=== PATIENT | female | born 1960 | race African-American/Black ===

== ENCOUNTER 2017-01-02 13:58 | Inpatient (IN) | payer MEDICAID, OTHER ==
[~2017-01-02] VITALS: Ht 167.6 cm; Wt 147.4 kg
[~2017-01-02 13:58] MED LIST: ACETIC ACID-ALU60 ML RIGHT EAR; AMBIEN5 MG ORAL; ATIVAN1 MG ORAL; CARISOPRODOL350 MG ORAL; CORTISPORIN10 ML RIGHT EAR; FLONASE1 SPRAYS NASAL; FUROSEMIDE20 M1 ORAL; HEPARIN SO5000 UNIT2 SUBQ; HUMALOG100 UNIT/4 SUBQ; LANTUS5 UNITS SUBQ; LASIX20 M1 ORAL; LISINOPRIL10 MG ORAL; LISINOPRIL5 MG ORAL; MS CONTIN15 MG ORAL; NORCO 5-325 TA1 EACH ORAL; NORCO1 E1 ORAL; NOVOLOG100 UNITS1 SUBQ; OXYCODONE HCL10 MG ORAL; OXYCODONE HCL15 M1 ORAL; OXYCODONE HCL30 MG ORAL; PROAIR HFA8.5 GM INH; PROZAC20 MG ORAL; SOMA350 MG PO; ZESTRIL10 MG ORAL
[2017-01-02] MEDS ORDERED: FUROSEMIDE40 MG ORAL (14:07)
[2017-01-02] MEDS ORDERED: CYMBALTA30 MG ORAL (14:07)
[2017-01-02] MEDS ORDERED: COLACE100 MG ORAL (14:07)
[2017-01-02] MEDS ORDERED: ALBUTEROL2.5 MG/3 M INH (14:07)
[2017-01-02] MEDS ORDERED: BENADRYL25 MG ORAL (14:07)
[2017-01-02] MEDS ORDERED: CATAPRES0.1 MG ORAL (14:07)
[2017-01-02] MEDS ORDERED: AMBIEN5 MG ORAL (14:07)
[2017-01-02] MEDS ORDERED: MORPHINE S10 MG/5 ML ORAL (14:12)
[2017-01-02] MEDS ORDERED: LOVENOX10 M4 SUBQ (14:12)
--- NOTE | 2017-01-02 14:13 | Emergency Room Report ---
History of Present Illness General Chief Complaint: General Complaint Source: Patient, Medical Record Present Illness HPI Patient is a 56 female presented after increased bilateral lower extremity pain and swelling. Patient prior history of pulmonary hypertension as well as morbid obesity and had been taking diuretics for leg swelling. She reported having increased swelling to both legs. She was noted to have prior history of hypertension and taking multiple medications. She denied any fever. She had not been vomiting or having any diarrhea. She was sent at her [facility]. Allergies: Coded Allergies: ASPIRIN (Verified Allergy, Intermediate, 04/17/13) KETOROLAC (Verified Allergy, Intermediate, 04/17/13) PENICILLINS (Verified Allergy, Intermediate, 04/17/13) Patient History Past Medical History: see triage record Now: No Reviewed Nursing Documentation: PMH: Agreed, PSxH: Agreed Nursing Documentation-PMH Hx Cardiac Problems: Yes Hx Hypertension: Yes Hx Pacemaker: No Hx Asthma: No Hx COPD: Yes Hx Diabetes: Yes Hx Cancer: No Hx Gastrointestinal Problems: No Hx Dialysis: No History Of Psychiatric Problem: No Hx Cerebrovascular Accident: No Hx Seizures: No Hx Dizziness: Yes - at times Review of Systems All Other Systems: negative except mentioned in HPI Physical Exam Vital Signs Date Time Temp Pulse Resp B/P Pulse Ox O2 Delivery O2 Flow Rate FiO2 01/02/17 13:48 98.1 78 16 161/76 98 Room Air Sp02 EP Interpretation: reviewed, normal General Appearance: normal inspection, well appearing, no apparent distress, alert, GCS 15, obese Head: atraumatic ENT: normal ENT inspection, hearing grossly normal, normal voice Neck: normal inspection, full range of motion, supple, no bony tend Respiratory: normal inspection, lungs clear, normal breath sounds, no respiratory distress, no retraction, no wheezing Cardiovascular #1: regular rate, rhythm, no edema Gastrointestinal: normal inspection, normal bowel sounds, non tender, soft, no guarding, no hernia Genitourinary: no CVA tenderness Musculoskeletal: normal inspection, back normal, normal range of motion Neurologic: normal inspection, alert, oriented x3, responsive, color worker III-XII nml as tested, speech normal Psychiatric: normal inspection, judgement/insight normal, mood/affect normal Skin: normal inspection, normal color, no rash Medical Decision Making Diagnostic Impression: Primary Impression: Intractable pain Additional Impression: Acute exacerbation of congestive heart failure ER Course Patient presented for lower extremity pain and swelling. Differential diagnosis included wasn't limited to deep venous thrombosis, congestive heart failure exacerbation, neuropathy among others.Because of complexity of patient' s case laboratory testing and imaging studies were ordered. Laboratory testing showed elevation of his BNP. A chest x-ray one view interpreted by radiology showed cardiomegaly without evident pulmonary edema. The lower extremity ultrasound was ordered this was a limited study and several portions of both legs were unable to be visualized do to patient's body habitus. There is no evidence of a definite deep venous thrombosis.The patient is advised to follow up with primary care doctor in 1-2 days. Patient is advised to return if any worsening condition or if any changes in status that are concerning. Labs Test 01/02/17 14:45 White Blood Count 3.6 K/UL (4.8-10.8) Red Blood Count 3.85 M/UL (4.20-5.40) Hemoglobin 10.8 G/DL (12.0-16.0) Hematocrit 33.3 % (37.0-47.0) Mean Corpuscular Volume 86 FL (80-99) Mean Corpuscular Hemoglobin 27.9 PG (27.0-31.0) Mean Corpuscular Hemoglobin Concent 32.3 G/DL (32.0-36.0) Red Cell Distribution Width 13.3 % (11.6-14.8) Platelet Count 204 K/UL (150-450) Mean Platelet Volume 7.5 FL (6.5-10.1) Neutrophils (%) (Auto) 46.3 % (45.0-75.0) Lymphocytes (%) (Auto) 38.8 % (20.0-45.0) Monocytes (%) (Auto) 11.1 % (1.0-10.0) Eosinophils (%) (Auto) 2.5 % (0.0-3.0) Basophils (%) (Auto) 1.3 % (0.0-2.0) Prothrombin Time 9.5 SEC (9.30-11.50) Prothromb Time International Ratio 0.9 (0.9-1.1) Activated Partial Thromboplast Time 27 SEC (23-33) D-Dimer 2835 ng/mL (<500) Sodium Level 142 mEQ/L (135-145) Potassium Level 4.1 mEQ/L (3.4-4.9) Chloride Level 103 mEQ/L (98-107) Carbon Dioxide Level 29 mEQ/L (20-30) Anion Gap 10 (5-15) Blood Urea Nitrogen 20 mg/dL (7-23) Creatinine 0.8 mg/dL (0.5-0.9) Estimat Glomerular Filtration Rate > 60 mL/min (>60) Glucose Level 97 mg/dL (74-106) Calcium Level 9.0 mg/dL (8.6-10.2) Total Bilirubin 0.2 mg/dL (0.0-1.2) Aspartate Amino Transf (AST/SGOT) 15 U/L (5-40) Alanine Aminotransferase (ALT/SGPT) 26 U/L (3-33) Alkaline Phosphatase 142 U/L (35-104) Total Creatine Kinase 118 U/L (26-140) Creatine Kinase MB 3.1 ng/mL (< 3.8) Creatine Kinase MB Relative Index 2.6 Troponin I < 0.30 ng/mL (<=0.30) Pro-B-Type Natriuretic Peptide 1203 pg/mL (0-125) Total Protein 6.9 g/dL (6.6-8.7) Albumin 3.6 g/dL (3.5-5.2) Globulin 3.3 g/dL Albumin/Globulin Ratio 1.0 (1.0-2.7) Last Vital Signs Date Time Temp Pulse Resp B/P Pulse Ox O2 Delivery O2 Flow Rate FiO2 01/02/17 13:48 98.1 78 16 161/76 98 Room Air Status: improved Disposition: HOME, SELF-CARE Condition: Stable Enzo Tenorio Jan 02, 2017 14:13
[2017-01-02] MEDS ORDERED: Morphine Sulfate 4mg/ml Inj IVP ONE ×2 (14:15→17:15)
[2017-01-02] MEDS ORDERED: PEPCID AC20 M2 PO (14:15)
[2017-01-02] MEDS ORDERED: SOMA350 MG PO (14:15)
[2017-01-02] MEDS ORDERED: Aspirin Baby 81mg ORAL ONE (14:15)
[2017-01-02] MEDS ORDERED: NORVASC5 MG ORAL (14:15)
[2017-01-02] MEDS ORDERED: ZOFRAN4 M3 ORAL (14:15)
[2017-01-02] MEDS ORDERED: NITROGLYCERIN0.4 MG SL (14:15)
[2017-01-02 15:19] LABS: BASOPHILS % (AUTO) 1.3 % (0.0-2.0); EOSINOPHILS % (AUTO) 2.5 % (0.0-3.0); LYMPHOCYTES % (AUTO) 38.8 % (20.0-45.0); MEAN CORPUSCULAR HEMOGLOBIN 27.9 PG (27.0-31.0); MEAN CORPUSCULAR HGB CONC 32.3 G/DL (32.0-36.0); MEAN CORPUSCULAR VOLUME 86 FL (80-99); MEAN PLATELET VOLUME 7.5 FL (6.5-10.1); MONOCYTES % (AUTO) 11.1 % (1.0-10.0); NEUTROPHILS % (AUTO) 46.3 % (45.0-75.0); PLATELET COUNT 204 K/UL (150-450); RED BLOOD COUNT 3.85 M/UL (4.20-5.40); RED CELL DISTRIBUTION WIDTH 13.3 % (11.6-14.8); WHITE BLOOD COUNT 3.6 K/UL (4.8-10.8)
[2017-01-02 15:39] LABS: INR 0.9 (0.9-1.1); PROTHROMBIN TIME 9.5 SEC (9.30-11.50)
[2017-01-02 15:44] LABS: ALANINE AMINOTRANSFERASE 26 U/L (3-33); ANION GAP 10 (5-15); ASPARTATE AMINO TRANSFERASE 15 U/L (5-40); CARBON DIOXIDE 29 mEQ/L (20-30); CHLORIDE 103 mEQ/L (98-107); CREATININE 0.8 mg/dL (0.5-0.9); GLOMERULAR FILTRATION RATE > 60 mL/min (>60); HEMOLYSIS 1; POTASSIUM 4.1 mEQ/L (3.4-4.9); SODIUM 142 mEQ/L (135-145); TOTAL PROTEIN 6.9 g/dL (6.6-8.7); TROPONIN I < 0.30 ng/mL (<=0.30)
[2017-01-02 15:52] LABS: CKMB 3.1 ng/mL (< 3.8)
--- NOTE | 2017-01-02 16:01 | Diagnostic Imaging Report ---
Indication: Dyspnea Comparison: None A single view chest radiograph was obtained. Findings: No definite infiltrate or pulmonary vascular congestion identified. The heart is enlarged. The aorta is mildly enlarged consistent with atherosclerotic vascular disease. The bones are osteopenic. A suture anchor projecting over the right humeral head. Cervical fusion plate over the lower cervical spine noted. Bones are osteopenic. Impression: No acute disease. Cardiomegaly
[2017-01-02 17:25] VITALS: BP 134/68
[2017-01-02 20:00] VITALS: BP 132/68
[2017-01-02] MEDS ORDERED: Morphine Sulfate 10mg/ml Inj IVP ONE (21:30)
[2017-01-02 21:50] VITALS: BP 131/51
[2017-01-02] MEDS ORDERED: Miralax 17gm pkt ORAL PRN (22:30)
[2017-01-02] MEDS: DuoNeb 0.5-3(2.5)mg/3ml neb HHN PRN (23:51)
[2017-01-02 23:56] LABS: TROPONIN I < 0.30 ng/mL (<=0.30)
[2017-01-03] MEDS: oxyCODONE 15mg IR tab ORAL PRN ×3 (02:54→17:10)
[2017-01-03] MEDS: DuoNeb 0.5-3(2.5)mg/3ml neb HHN PRN (03:22)
[2017-01-03 04:00] VITALS: BP 137/69
[2017-01-03] MEDS: NovoLOG Insulin Flexpen SUBQ SCH ×4 (06:01→22:55)
[2017-01-03 07:04] LABS: MEAN CORPUSCULAR HEMOGLOBIN 27.2 PG (27.0-31.0); MEAN CORPUSCULAR HGB CONC 30.8 G/DL (32.0-36.0); MEAN CORPUSCULAR VOLUME 88 FL (80-99); MEAN PLATELET VOLUME 8.1 FL (6.5-10.1); PLATELET COUNT 209 K/UL (150-450); RED BLOOD COUNT 3.91 M/UL (4.20-5.40); RED CELL DISTRIBUTION WIDTH 13.9 % (11.6-14.8); WHITE BLOOD COUNT 3.2 K/UL (4.8-10.8)
[2017-01-03 07:17] LABS: ANION GAP 7 (5-15); CALCIUM 8.6 mg/dL (8.6-10.2); CARBON DIOXIDE 28 mEQ/L (20-30); CHLORIDE 105 mEQ/L (98-107); CREATININE 0.8 mg/dL (0.5-0.9); GLOMERULAR FILTRATION RATE > 60 mL/min (>60); HEMOLYSIS 0; PHOSPHORUS 5.1 mg/dL (2.5-4.8); POTASSIUM 4.7 mEQ/L (3.4-4.9); SODIUM 140 mEQ/L (135-145)
[2017-01-03 07:21] LABS: TROPONIN I < 0.30 ng/mL (<=0.30)
[2017-01-03 08:46] VITALS: BP 144/64
[2017-01-03 08:52] LABS: ANISOCYTOSIS 1+; BAND NEUTROPHILS % (MANUAL) 0 % (0-8); BASOPHILS % (MANUAL) 0 % (0-2); EOSINOPHILS % (MANUAL) 3 % (0-3); HYPOCHROMASIA 1+; LYMPHOCYTES % (MANUAL) 41 % (20-45); NEUTROPHILS % (MANUAL) 52 % (45-75); PLATELET ESTIMATE ADEQUATE; PLATELET MORPHOLOGY NORMAL; TOTAL CELLS COUNTED 100
[2017-01-03] MEDS: Lisinopril 10mg tab ORAL SCH ×2 (09:00→09:33)
[2017-01-03] MEDS: Heparin 5000 units/ml inj SUBQ SCH ×2 (09:35→22:55)
--- NOTE | 2017-01-03 11:39 | Diagnostic Imaging Report ---
Indication: Dyspnea Comparison: 01/02/17 A single view chest radiograph was obtained. Findings: Moderate cardiomegaly is present and stable. Lungs are clear. There is no change. Impression: No change management consultant one-day
[2017-01-03 12:37] VITALS: BP 154/69
[2017-01-03 16:02] VITALS: BP 150/66
--- NOTE | 2017-01-03 17:00 | History and Physical Report ---
DATE OF ADMISSION: 01/02/2017 TIME SEEN: 2 p.m. CONSULTANTS: 1. Goldy Christiansen M.D. 2. Adelfo Torres M.D. 3. Sherita Cooper M.D. 4. Kobe Serrnao M.D. CHIEF COMPLAINT: Lower extremity swelling and agitation. BRIEF HISTORY: This is a 56-year-old female from [facility] presented with above-mentioned diagnosis, admitted to medical floor for further treatment, currently slightly agitated, anxious, sitting on bed, complaining of generalized pain, 6/10. PAST MEDICAL HISTORY: Lower extremity swelling, obesity, arthritis, CHF, pulmonary hypertension, diabetes. PAST SURGICAL HISTORY: Leg and back. MEDICATIONS: Norvasc, Cymbalta, Zestril, Soma, Lasix, Roxicodone, Restoril, Zofran, MiraLAX, Tylenol, DuoNeb. ALLERGIES: Aspirin, penicillin, Ketoralac. SOCIAL HISTORY: Positive smoking. No alcohol. No intravenous drug abuse. FAMILY HISTORY: Noncontributory. REVIEW OF SYSTEMS: No chest pain/shortness of breath. No nausea, vomiting or diarrhea. PHYSICAL EXAMINATION: GENERAL: Anxious in bed, oriented x2, in no acute distress. VITAL SIGNS: Temperature is 97 degrees, pulse 79, respirations 20, and blood pressure 154/69. CARDIOVASCULAR: No murmurs. LUNGS: Poor air exchange. ABDOMEN: Positive bowel sounds. Soft, nontender, and nondistended. EXTREMITIES: No cyanosis, clubbing, 1 to 2 + edema. NEUROLOGIC: The patient moves all extremities, but slightly weak. LABORATORY AND DIAGNOSTIC DATA: White count 3.2, hemoglobin and hematocrit 10 over 34, platelets 209,000. Glucose 272 otherwise BMP is normal. D-dimer is 2835. ASSESSMENT: 1. Lower extremity swelling. 2. Agitation. 3. Congestive heart failure. 4. Arthritis. 5. Obesity. 6. Pulmonary hypertension. 7. Diabetes. 8. Anemia. 9. Leukopenia . PLAN: 1. Continue premedications. 2. OT/PT. 3. Dietary evaluation. 4. CBC and BMP in the morning. 5. Dr. Christiansen, Dr. Torres, Dr. Cooper, Dr. Serrano, Dr. Bryant, and Dr. Craven to consult. 6. Blood sugar control. 7. Pain control. 8. We will continue to follow this patient medically. Alfred Parr D.O. DR: Orquidea JOB#: [id number] CC:
--- NOTE | 2017-01-03 19:04 | Consultation ---
History of Present Illness General Date patient seen: Jan 03, 2017 Chief Complaint: General Complaint Reason for Consultation: inpatient management Present Illness HPI 56 year old female with hx of morbid obesity, DVT, DM, Asthma, group home resident brought in with CC of increasing swelling of legs and uncontrollable pain. Allergies: Coded Allergies: ASPIRIN (Verified Allergy, Intermediate, 04/17/13) KETOROLAC (Verified Allergy, Intermediate, 04/17/13) PENICILLINS (Verified Allergy, Intermediate, 04/17/13) Medication History Scheduled Acetic Acid/Aluminum Acetate (Acetic Acid-Aluminum Drops), 4 DROP RIGHT EAR TID Albuterol Sulfate* (Proair Hfa*), 2 PUFFS INH Q6H, (Reported) Amlodipine Besylate (Norvasc), 5 MG ORAL BID, (Reported) Carisoprodol* (Carisoprodol*), 350 MG ORAL Q8HR, (Reported) Carisoprodol* (Soma*), 350 MG PO Q6H, (Reported) Clonidine Hcl* (Catapres*), 0.1 MG ORAL EVERY 4 HOURS, (Reported) Docusate Sodium* (Colace*), 100 MG ORAL DAILY, (Reported) Duloxetine Hcl* (Cymbalta*), 20 MG ORAL DAILY, (Reported) Enoxaparin* (Lovenox*), 40 MG SUBQ DAILY, (Reported) Fluticasone Propionate (Fluticasone Propionate), 2 SPRAY NASAL BID Furosemide* (Lasix*), 40 MG ORAL DAILY, (Reported) Insulin Aspart (Novolog Flexpen), 0 UNITS SUBQ BEFORE MEALS AND HS Insulin Glargine (Lantus), 55 UNIT SUBQ BEDTIME Insulin Lispro (Humalog), 12 UNITS SUBQ DAILY Lisinopril* (Lisinopril*), 10 MG ORAL DAILY, (Reported) Neomycin/Polymyxin/Hydrocort (Eaztpamq-Nvcohcxdc-Yh Ear Soln), 4 DROP RIGHT EAR FOUR TIMES A DAY Scheduled PRN Albuterol Sulfate* (Albuterol Sulfate Hhn*), 3 ML INH Q4H PRN for Shortness of Breath, (Reported) Diphenhydramine Hcl* (Benadryl*), 25 MG ORAL Q6H PRN for Itching, (Reported) Lorazepam* (Ativan*), 2 MG ORAL Q6H PRN for ANXIETY/AGITATION Morphine Sulfate* (Morphine Sulfate*), 15 MG ORAL EVERY 6 HOURS PRN for For Pain , (Reported) Ondansetron* (Zofran*), 4 MG ORAL Q6H PRN for Nausea & Vomiting, (Reported) Oxycodone Hcl* (Oxycodone Hcl*), 15 MG ORAL Q6H PRN for For Pain, (Reported) Zolpidem Tartrate* (Ambien*), 5 MG ORAL BEDTIME PRN for Insomnia, (Reported) Miscellaneous Medications Famotidine (Pepcid Ac), 20 MG PO, (Reported) Nitroglycerin (Nitroglycerin), 0.4 MG SL, (Reported) Patient History Healthcare decision maker Resuscitation status Full Code Advanced Directive on File Past Medical/Surgical History Past Medical/Surgical History: (1) Intractable pain (2) Diabetes (3) Osteopenia Review of Systems All Other Systems: negative except mentioned in HPI Physical Exam General Appearance: overweight Lines, tubes and drains: peripheral, central line HEENT: normocephalic, atraumatic Neck: non-tender, normal alignment Respiratory/Chest: chest wall non-tender, lungs clear Cardiovascular/Chest: normal peripheral pulses, normal rate Abdomen: normal bowel sounds, non tender Genitourinary/Rectal: normal genital exam Extremities: normal range of motion Skin Exam: normal pigmentation 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 normal Last 24 Hour Vital Signs Date Time Temp Pulse Resp B/P Pulse Ox O2 Delivery O2 Flow Rate FiO2 01/03/17 16:02 97.0 77 20 150/66 98 Room Air 77 01/03/17 12:37 97.7 79 20 154/69 98 Room Air 79 01/03/17 08:46 97.5 76 20 144/64 98 Room Air 76 01/03/17 07:03 98.1 01/03/17 04:00 97.3 83 17 137/69 96 Room Air 01/03/17 03:33 78 20 98 Room Air 21 01/03/17 03:22 82 20 Room Air 21 01/03/17 03:22 82 20 91 Room Air 21 01/02/17 23:59 81 20 100 Room Air 01/02/17 23:54 88 20 99 Room Air 21 01/02/17 23:50 99 20 Room Air 21 01/02/17 22:19 84 17 131/57 99 Room Air 01/02/17 21:50 88 17 131/51 99 Room Air 01/02/17 20:00 84 17 132/68 99 Room Air Intake and Output 01/02/17 01/03/17 19:00 07:00 Output Total 350 ml 475 ml Balance -350 ml -475 ml Output Urine Total 350 ml 475 ml Laboratory Tests Test 01/02/17 23:20 01/03/17 04:40 Troponin I < 0.30 ng/mL (<=0.30) < 0.30 ng/mL (<=0.30) White Blood Count 3.2 K/UL (4.8-10.8) L Red Blood Count 3.91 M/UL (4.20-5.40) L Hemoglobin 10.6 G/DL (12.0-16.0) L Hematocrit 34.5 % (37.0-47.0) L Mean Corpuscular Volume 88 FL (80-99) Mean Corpuscular Hemoglobin 27.2 PG (27.0-31.0) Mean Corpuscular Hemoglobin Concent 30.8 G/DL (32.0-36.0) L Red Cell Distribution Width 13.9 % (11.6-14.8) Platelet Count 209 K/UL (150-450) Mean Platelet Volume 8.1 FL (6.5-10.1) Neutrophils (%) (Auto) % (45.0-75.0) Lymphocytes (%) (Auto) % (20.0-45.0) Monocytes (%) (Auto) % (1.0-10.0) Eosinophils (%) (Auto) % (0.0-3.0) Basophils (%) (Auto) % (0.0-2.0) Differential Total Cells Counted 100 Neutrophils % (Manual) 52 % (45-75) Lymphocytes % (Manual) 41 % (20-45) Monocytes % (Manual) 4 % (1-10) Eosinophils % (Manual) 3 % (0-3) Basophils % (Manual) 0 % (0-2) Band Neutrophils 0 % (0-8) Platelet Estimate Adequate Platelet Morphology Normal Hypochromasia 1+ Anisocytosis 1+ Sodium Level 140 mEQ/L (135-145) Potassium Level 4.7 mEQ/L (3.4-4.9) Chloride Level 105 mEQ/L (98-107) Carbon Dioxide Level 28 mEQ/L (20-30) Anion Gap 7 (5-15) Blood Urea Nitrogen 20 mg/dL (7-23) Creatinine 0.8 mg/dL (0.5-0.9) Estimat Glomerular Filtration Rate > 60 mL/min (>60) Glucose Level 272 mg/dL (74-106) #H Calcium Level 8.6 mg/dL (8.6-10.2) Phosphorus Level 5.1 mg/dL (2.5-4.8) H Albumin 3.3 g/dL (3.5-5.2) L Height (Feet): 5 Height (Inches): 6.00 Weight (Pounds): 325 Medications Current Medications Medications (Trade) Dose Ordered Sig/Evelia Route PRN Reason Start Time Stop Time Status Last Admin Dose Admin Acetaminophen (Tylenol) 650 mg Q4H PRN ORAL Fever 01/02/17 22:30 02/01/17 22:29 Albuterol/ Ipratropium (DuoNeb 0.5-3(2.5)mg/3ml) 3 ml Q4H PRN HHN Shortness of Breath 01/02/17 22:30 01/07/17 22:29 01/03/17 03:22 Amlodipine Besylate (Norvasc) 5 mg BID ORAL 01/03/17 09:00 02/02/17 08:59 Carisoprodol (Soma) 350 mg Q8HR ORAL 01/03/17 06:00 02/02/17 05:59 01/03/17 15:07 Dextrose (Dextrose 50%) STAT PRN IV Hypoglycemia 01/03/17 17:45 02/02/17 17:44 Duloxetine HCl (Cymbalta) 20 mg DAILY ORAL 01/03/17 09:00 02/02/17 08:59 01/03/17 09:00 Furosemide (Lasix) 40 mg EVERY 8 HOURS IV 01/03/17 06:00 02/02/17 05:59 01/03/17 15:01 Heparin Sodium (Porcine) (Heparin 5000 units/ml) 5,000 units EVERY 12 HOURS SUBQ 01/03/17 09:00 02/02/17 08:59 01/03/17 09:35 Insulin Aspart (NovoLOG) BEFORE MEALS AND HS SUBQ 01/03/17 06:30 02/02/17 06:29 01/03/17 06:01 Insulin Aspart (NovoLOG) 8 units NOVOTIAC SUBQ 01/04/17 06:30 02/03/17 06:29 Insulin Detemir (Levemir) 24 units BEDTIME SUBQ 01/03/17 21:00 02/02/17 20:59 Lisinopril (Zestril) 10 mg DAILY ORAL 01/03/17 09:00 02/02/17 08:59 Ondansetron HCl (Zofran) 4 mg Q6H PRN IVP Nausea & Vomiting 01/02/17 22:30 02/01/17 22:29 Oxycodone HCl (Roxicodone) 15 mg Q6H PRN ORAL For Pain 01/02/17 22:30 01/09/17 22:29 01/03/17 17:10 Polyethylene Glycol (Miralax) 17 gm DAILYPRN PRN ORAL Constipation 01/02/17 22:30 02/01/17 22:29 Temazepam (Restoril) 15 mg HSPRN PRN ORAL Insomnia 01/02/17 22:30 01/09/17 22:29 Assessment/Plan Problem List: (1) Peripheral edema ICD Codes: R60.9 - Edema, unspecified SNOMED: 999070538 (2) Diabetes ICD Codes: E11.9 - Type 2 diabetes mellitus without complications SNOMED: 48531449 (3) Intractable pain ICD Codes: G89.29 - Other chronic pain SNOMED: 997666824 Assessment/Plan pain management venous doppler of legs symptomatic treatment sliding scale might benefit from psych evaluation. LLUVIA JENKINS Jan 03, 2017 19:04
[2017-01-03 19:41] LABS: PATH BLOOD SMEAR/OMC SENT TO PATHOLOGIST
[2017-01-03 20:00] VITALS: BP 155/71
[2017-01-03 20:19] LABS: LACTATE DEHYDROGENASE 293 U/L (135-230)
[2017-01-03 20:21] LABS: HEMOLYSIS 10; IRON 45 ug/dL (37-145); TOTAL IRON BINDING CAPACITY 325 ug/dL (250-400)
[2017-01-03 20:29] LABS: FERRITIN 95 ng/mL (13-150)
[2017-01-03] MEDS ORDERED: Levemir Flexpen SUBQ SCH (21:00)
[2017-01-03] MEDS ORDERED: oxyCODONE 15mg IR tab ORAL PRN (21:45)
--- NOTE | 2017-01-03 22:30 | Consultation ---
DATE OF CONSULTATION: 01/03/2017 HEMATOLOGY/ONCOLOGY CONSULTATION CONSULTING PHYSICIAN: Ryan Bryant M.D. REQUESTING PHYSICIAN: Alfred Parr D.O. REASON FOR CONSULTATION: Evaluation of leukopenia as well as anemia. IDENTIFICATION DATA: Dear Dr. Alfred Parr, The patient is a pleasant 56-year-old female, who resides in [facility]. She has a past medical history significant for depression, pain, history of fluid overload, asthma, and positive for smoking, at this time presents to [facility] with anxiety, agitation, and lower extremity swelling. Duplex was performed and it was negative for DVT, however, the patient was found to have leukopenia. Therefore, Hematology service was consulted. PAST MEDICAL HISTORY: Lower extremity swelling, obesity, arthritis, pulmonary hypertension, diabetes mellitus, and CHF. PAST SURGICAL HISTORY: Leg and back . MEDICATIONS: Norvasc, Cymbalta, Zestril, Soma, Lasix, Roxicodone, Restoril, and DuoNeb. ALLERGIES: Aspirin, penicillin, and Ketoralac. SOCIAL HISTORY: Positive for smoking. No alcohol use. FAMILY HISTORY: Noncontributory. REVIEW OF SYSTEMS: Constitutional: No fever, chills, or night sweats. Skin: No rashes, lumps, or itching. HEENT: No headache, hearing, or vision changes. Breasts: No lumps, pain, or discharge. Pulmonary: No cough. Having some shortness of breath. Cardiovascular: No chest pain, tightness, or palpitations. Gastrointestinal: No nausea, vomiting, or diarrhea. Genitourinary: No dysuria, frequency, or urgency. Musculoskeletal: No joint swelling, muscle pain, or trauma. PHYSICAL EXAMINATION: GENERAL: The patient is in no acute distress. VITAL SIGNS: Temperature 97 degrees Fahrenheit, pulse of 79, respiratory rate 12, and blood pressure 159/69. PULMONARY: Decreased breath sounds. CARDIOVASCULAR: Regular rate. No S3 or S4. ABDOMEN: Soft, nontender, and nondistended. EXTREMITIES: There is 1-2+ edema. LABORATORY AND DIAGNOSTIC DATA: WBC 2.3, hemoglobin 10.3, hematocrit 34, and platelet count 209,000. Duplex of lower extremity is negative. ASSESSMENT AND PLAN: 1. Leukopenia secondary to underlying infection. This is non-congenital neutropenia. We will send for hepatitis panel, HIV, and ultrasound of the abdomen. 2. Anemia due to chronic disease, is normocytic. 3. Monocytosis, has resolved. 4. Elevation of D-dimer, likely secondary to reactive process. 5. Alkaline phosphatase elevated. 6. Malnutrition, low albumin. 7. Cardiomegaly noted. 8. Discussed with staff. 9. . Ryan Bryant M.D. DR: ERICA JOB#: [id number] CC:
[2017-01-03] MEDS: HYDROmorphone 1mg/ml Carpuject IVP PRN (22:49)
[2017-01-04] MEDS: DuoNeb 0.5-3(2.5)mg/3ml neb HHN PRN ×3 (01:17→19:59)
[2017-01-04] MEDS: HYDROmorphone 1mg/ml Carpuject IVP PRN ×5 (03:59→21:01)
[2017-01-04 04:28] VITALS: BP 138/64
[2017-01-04] MEDS: NovoLOG Insulin Flexpen SUBQ SCH ×7 (06:26→21:00)
[2017-01-04 06:27] LABS: BASOPHILS % (AUTO) 0.8 % (0.0-2.0); EOSINOPHILS % (AUTO) 1.2 % (0.0-3.0); LYMPHOCYTES % (AUTO) 28.7 % (20.0-45.0); MEAN CORPUSCULAR HEMOGLOBIN 27.4 PG (27.0-31.0); MEAN CORPUSCULAR HGB CONC 31.1 G/DL (32.0-36.0); MEAN CORPUSCULAR VOLUME 88 FL (80-99); MEAN PLATELET VOLUME 7.6 FL (6.5-10.1); NEUTROPHILS % (AUTO) 55.3 % (45.0-75.0); PLATELET COUNT 192 K/UL (150-450); RED BLOOD COUNT 3.86 M/UL (4.20-5.40); RED CELL DISTRIBUTION WIDTH 13.5 % (11.6-14.8); WHITE BLOOD COUNT 3.5 K/UL (4.8-10.8)
[2017-01-04 06:56] LABS: ANION GAP 8 (5-15); CALCIUM 8.8 mg/dL (8.6-10.2); CARBON DIOXIDE 29 mEQ/L (20-30); CHLORIDE 99 mEQ/L (98-107); CREATININE 0.8 mg/dL (0.5-0.9); GLOMERULAR FILTRATION RATE > 60 mL/min (>60); HEMOLYSIS 3; POTASSIUM 4.3 mEQ/L (3.4-4.9); SODIUM 136 mEQ/L (135-145)
[2017-01-04 07:57] VITALS: BP 134/66
[2017-01-04] MEDS: Heparin 5000 units/ml inj SUBQ SCH ×2 (08:57→21:00)
[2017-01-04] MEDS: Lisinopril 10mg tab ORAL SCH (08:57)
--- NOTE | 2017-01-04 09:57 | Consultation ---
History of Present Illness General Date patient seen: Jan 04, 2017 Chief Complaint: General Complaint Reason for Consultation: inpatient management Present Illness Allergies: Coded Allergies: ASPIRIN (Verified Allergy, Intermediate, 04/17/13) KETOROLAC (Verified Allergy, Intermediate, 04/17/13) PENICILLINS (Verified Allergy, Intermediate, 04/17/13) Medication History Scheduled Acetic Acid/Aluminum Acetate (Acetic Acid-Aluminum Drops), 4 DROP RIGHT EAR TID Albuterol Sulfate* (Proair Hfa*), 2 PUFFS INH Q6H, (Reported) Amlodipine Besylate (Norvasc), 5 MG ORAL BID, (Reported) Carisoprodol* (Carisoprodol*), 350 MG ORAL Q8HR, (Reported) Carisoprodol* (Soma*), 350 MG PO Q6H, (Reported) Clonidine Hcl* (Catapres*), 0.1 MG ORAL EVERY 4 HOURS, (Reported) Docusate Sodium* (Colace*), 100 MG ORAL DAILY, (Reported) Duloxetine Hcl* (Cymbalta*), 20 MG ORAL DAILY, (Reported) Enoxaparin* (Lovenox*), 40 MG SUBQ DAILY, (Reported) Fluticasone Propionate (Fluticasone Propionate), 2 SPRAY NASAL BID Furosemide* (Lasix*), 40 MG ORAL DAILY, (Reported) Insulin Aspart (Novolog Flexpen), 0 UNITS SUBQ BEFORE MEALS AND HS Insulin Glargine (Lantus), 55 UNIT SUBQ BEDTIME Insulin Lispro (Humalog), 12 UNITS SUBQ DAILY Lisinopril* (Lisinopril*), 10 MG ORAL DAILY, (Reported) Neomycin/Polymyxin/Hydrocort (Wcaamcuj-Cypygezeq-Mb Ear Soln), 4 DROP RIGHT EAR FOUR TIMES A DAY Scheduled PRN Albuterol Sulfate* (Albuterol Sulfate Hhn*), 3 ML INH Q4H PRN for Shortness of Breath, (Reported) Diphenhydramine Hcl* (Benadryl*), 25 MG ORAL Q6H PRN for Itching, (Reported) Lorazepam* (Ativan*), 2 MG ORAL Q6H PRN for ANXIETY/AGITATION Morphine Sulfate* (Morphine Sulfate*), 15 MG ORAL EVERY 6 HOURS PRN for For Pain , (Reported) Ondansetron* (Zofran*), 4 MG ORAL Q6H PRN for Nausea & Vomiting, (Reported) Oxycodone Hcl* (Oxycodone Hcl*), 15 MG ORAL Q6H PRN for For Pain, (Reported) Zolpidem Tartrate* (Ambien*), 5 MG ORAL BEDTIME PRN for Insomnia, (Reported) Miscellaneous Medications Famotidine (Pepcid Ac), 20 MG PO, (Reported) Nitroglycerin (Nitroglycerin), 0.4 MG SL, (Reported) Patient History Healthcare decision maker Resuscitation status Full Code Advanced Directive on File Physical Exam Last 24 Hour Vital Signs Date Time Temp Pulse Resp B/P Pulse Ox O2 Delivery O2 Flow Rate FiO2 01/04/17 09:45 90 20 100 Room Air 21 01/04/17 09:31 82 20 96 Room Air 21 01/04/17 08:57 134/66 01/04/17 08:56 82 134/66 01/04/17 08:25 97.6 01/04/17 07:57 97.6 82 20 134/66 97 Room Air 01/04/17 07:30 82 20 Room Air 21 01/04/17 04:28 97.5 77 19 138/64 95 Room Air 01/04/17 01:23 91 20 98 Room Air 21 01/04/17 01:17 87 20 98 Room Air 21 01/03/17 20:00 97.2 84 20 155/71 92 Room Air 84 01/03/17 16:02 97.0 77 20 150/66 98 Room Air 77 01/03/17 12:37 97.7 79 20 154/69 98 Room Air 79 Intake and Output 01/03/17 01/04/17 19:00 07:00 Intake Total 480 ml 500 ml Output Total 1400 ml 1100 ml Balance -920 ml -600 ml Intake Oral 480 ml 500 ml Output Urine Total 1400 ml 1100 ml Laboratory Tests Test 01/04/17 05:25 White Blood Count 3.5 K/UL (4.8-10.8) L Red Blood Count 3.86 M/UL (4.20-5.40) L Hemoglobin 10.6 G/DL (12.0-16.0) L Hematocrit 34.1 % (37.0-47.0) L Mean Corpuscular Volume 88 FL (80-99) Mean Corpuscular Hemoglobin 27.4 PG (27.0-31.0) Mean Corpuscular Hemoglobin Concent 31.1 G/DL (32.0-36.0) L Red Cell Distribution Width 13.5 % (11.6-14.8) Platelet Count 192 K/UL (150-450) Mean Platelet Volume 7.6 FL (6.5-10.1) Neutrophils (%) (Auto) 55.3 % (45.0-75.0) Lymphocytes (%) (Auto) 28.7 % (20.0-45.0) Monocytes (%) (Auto) 14.0 % (1.0-10.0) H Eosinophils (%) (Auto) 1.2 % (0.0-3.0) Basophils (%) (Auto) 0.8 % (0.0-2.0) Sodium Level 136 mEQ/L (135-145) Potassium Level 4.3 mEQ/L (3.4-4.9) Chloride Level 99 mEQ/L (98-107) Carbon Dioxide Level 29 mEQ/L (20-30) Anion Gap 8 (5-15) Blood Urea Nitrogen 19 mg/dL (7-23) Creatinine 0.8 mg/dL (0.5-0.9) Estimat Glomerular Filtration Rate > 60 mL/min (>60) Glucose Level 392 mg/dL (74-106) #H Calcium Level 8.8 mg/dL (8.6-10.2) Height (Feet): 5 Height (Inches): 6.00 Weight (Pounds): 325 Medications Current Medications Medications (Trade) Dose Ordered Sig/Evelia Route PRN Reason Start Time Stop Time Status Last Admin Dose Admin Acetaminophen (Tylenol) 650 mg Q4H PRN ORAL Fever 01/02/17 22:30 02/01/17 22:29 Albuterol/ Ipratropium (DuoNeb 0.5-3(2.5)mg/3ml) 3 ml Q4H PRN HHN Shortness of Breath 01/02/17 22:30 01/07/17 22:29 01/04/17 09:30 Amlodipine Besylate (Norvasc) 5 mg BID ORAL 01/03/17 09:00 02/02/17 08:59 Carisoprodol (Soma) 350 mg Q8HR ORAL 01/03/17 06:00 02/02/17 05:59 01/04/17 00:19 Dextrose (Dextrose 50%) STAT PRN IV Hypoglycemia 01/03/17 17:45 02/02/17 17:44 Duloxetine HCl (Cymbalta) 20 mg DAILY ORAL 01/03/17 09:00 02/02/17 08:59 01/03/17 09:00 Furosemide (Lasix) 40 mg EVERY 8 HOURS IV 01/03/17 06:00 02/02/17 05:59 01/04/17 05:36 Heparin Sodium (Porcine) (Heparin 5000 units/ml) 5,000 units EVERY 12 HOURS SUBQ 01/03/17 09:00 02/02/17 08:59 01/03/17 22:55 Hydromorphone HCl (Dilaudid) 1 mg Q4H PRN IVP Severe Pain (Pain Scale 7-10) 01/03/17 21:00 01/10/17 20:59 01/04/17 07:55 Insulin Aspart (NovoLOG) BEFORE MEALS AND HS SUBQ 01/03/17 06:30 02/02/17 06:29 01/04/17 06:27 Insulin Aspart (NovoLOG) 8 units NOVOTIAC SUBQ 01/04/17 06:30 02/03/17 06:29 01/04/17 06:26 Insulin Detemir (Levemir) 24 units BEDTIME SUBQ 01/03/17 21:00 02/02/17 20:59 01/03/17 22:54 Lisinopril (Zestril) 10 mg DAILY ORAL 01/03/17 09:00 02/02/17 08:59 Ondansetron HCl (Zofran) 4 mg Q6H PRN IVP Nausea & Vomiting 01/02/17 22:30 02/01/17 22:29 Oxycodone HCl (Roxicodone) 15 mg Q6H PRN ORAL Moderate Breakthru Pain (5-7) 01/03/17 21:45 01/10/17 21:44 01/04/17 05:37 Polyethylene Glycol (Miralax) 17 gm DAILYPRN PRN ORAL Constipation 01/02/17 22:30 02/01/17 22:29 Temazepam (Restoril) 15 mg HSPRN PRN ORAL Insomnia 01/02/17 22:30 01/09/17 22:29 Assessment/Plan Assessment/Plan (1) H/o Lumbar surgery (2) Lumbar Radiculopathy (3) Lumbar Spondylosis (4) Lumbar DDD (5) Morbid Obesity (6) Cervical Radiculopathy (7) Cervical Spondylosis (8) Cervical DDD (9) H/o Cervical fusion seen dictated VERÓNICA VINCENT Jan 04, 2017 09:57
[2017-01-04] MEDS ORDERED: oxyCODONE 5mg IR tab ORAL PRN (11:00)
[2017-01-04] MEDS: oxyCONTIN 20mg tab ORAL SCH ×3 (11:01→18:49)
[2017-01-04 12:00] VITALS: BP 179/98
--- NOTE | 2017-01-04 12:46 | Diagnostic Imaging Report ---
APPROVED REPORT CPT Code: 25895 Present Symptoms Lower Extremity Pain: Bilateral Lower Extremity Edema: Bilateral Shortness of breath Past History DVT : Limited, technically difficult study due to vessel depth (mid-thigh and calf area), and excessive edema due to pulmonary hypertension. BILATERAL: Imaging reveals a patent deep venous system bilaterally. There is no evidence of thrombus within the common femoral and proximal superficial femoral veins. Doppler indicates normal spontaneous flow within these segments. The greater saphenous veins are also within normal limits. The mid superficial femoral and popliteal vein segments are compressible. The distal superficial femoral veins and calf veins were not well visualized bilaterally. Bilateral popliteal vein augmentation was also not demonstrable due to vessel depth and excessive edema.
[2017-01-04 13:20] VITALS: BP 138/68
--- NOTE | 2017-01-04 13:59 | General Progress Note ---
Assessment/Plan Problem List: (1) HTN (hypertension) ICD Codes: I10 - Essential (primary) hypertension SNOMED: 57803941 (2) Osteoarthritis (3) Acute exacerbation of congestive heart failure ICD Codes: I50.9 - Heart failure, unspecified SNOMED: 84124480 (4) Diabetes ICD Codes: E11.9 - Type 2 diabetes mellitus without complications SNOMED: 89904231 (5) Intractable pain ICD Codes: G89.29 - Other chronic pain SNOMED: 911280119 (6) Peripheral edema ICD Codes: R60.9 - Edema, unspecified SNOMED: 827607331 (7) Leukopenia ICD Codes: D72.819 - Decreased whiteblood cell count, unspecified SNOMED: 38625691 Status: stable, progressing, tolerating diet Assessment/Plan ot pt diet o2 pulm tx cardio pulm f/u cbc bmp am psyc transfer Subjective Constitutional: Reports: weakness Allergies: Coded Allergies: ASPIRIN (Verified Allergy, Intermediate, 04/17/13) KETOROLAC (Verified Allergy, Intermediate, 04/17/13) PENICILLINS (Verified Allergy, Intermediate, 04/17/13) All Systems: reviewed and negative except above Subjective sl agitated Objective Last 24 Hour Vital Signs Date Time Temp Pulse Resp B/P Pulse Ox O2 Delivery O2 Flow Rate FiO2 01/04/17 13:20 81 138/68 01/04/17 13:04 98.2 01/04/17 12:00 98.2 84 20 179/98 97 Room Air 01/04/17 09:45 90 20 100 Room Air 01/04/17 09:31 82 20 96 Room Air 01/04/17 08:57 134/66 01/04/17 08:56 82 134/66 01/04/17 07:57 97.6 82 20 134/66 97 Room Air 01/04/17 07:30 82 20 Room Air 21 01/04/17 04:28 97.5 77 19 138/64 95 Room Air 01/04/17 01:23 91 20 98 Room Air 21 01/04/17 01:17 87 20 98 Room Air 21 01/03/17 20:00 97.2 84 20 155/71 92 Room Air 84 01/03/17 16:02 97.0 77 20 150/66 98 Room Air 77 Intake and Output 01/03/17 01/04/17 19:00 07:00 Intake Total 480 ml 500 ml Output Total 1400 ml 1100 ml Balance -920 ml -600 ml Intake Oral 480 ml 500 ml Output Urine Total 1400 ml 1100 ml Laboratory Tests 01/04/17 05:25: White Blood Count 3.5L, Red Blood Count 3.86L, Hemoglobin 10.6L, Hematocrit 34.1L, Mean Corpuscular Volume 88, Mean Corpuscular Hemoglobin 27.4, Mean Corpuscular Hemoglobin Concent 31.1L, Red Cell Distribution Width 13.5, Platelet Count 192, Mean Platelet Volume 7.6, Neutrophils (%) (Auto) 55.3, Lymphocytes (%) (Auto) 28.7, Monocytes (%) (Auto) 14.0H, Eosinophils (%) (Auto) 1.2, Basophils (%) (Auto) 0.8, Sodium Level 136, Potassium Level 4.3, Chloride Level 99, Carbon Dioxide Level 29, Anion Gap 8, Blood Urea Nitrogen 19, Creatinine 0.8, Estimat Glomerular Filtration Rate > 60, Glucose Level 392#H, Calcium Level 8.8 Height (Feet): 5 Height (Inches): 6.00 Weight (Pounds): 325 General Appearance: confused EENT: normal ENT inspection Neck: normal alignment Cardiovascular: normal peripheral pulses, normal rate, regular rhythm Respiratory/Chest: chest wall non-tender, lungs clear, normal breath sounds Abdomen: normal bowel sounds, non tender, soft Extremities: normal inspection Edema: 1+ Arm (L), 1+ Arm (R), 1+ Leg (L), 1+ Leg (R), 1+ Pedal (L), 1+ Pedal ( R), 1+ Generalized Edema: mild edema Neurologic: responsive, motor weakness Skin: normal pigmentation, warm/dry GISELLA MARCANO Jan 04, 2017 13:59
--- NOTE | 2017-01-04 15:10 | Consultation ---
History of Present Illness General Chief Complaint: General Complaint Reason for Consultation: inpatient management Present Illness HPI 56-year-old female from [facility] presented with above-mentioned diagnosis, admitted to medical floor for further treatment, currently calm and altered the pt is addicted to pain meds and is med seeking. the pt is asking for ativan . no depressive manic sxs. the pt reluctant to take anything else beside ativan the pt is not suicidal or homicidal Allergies: Coded Allergies: ASPIRIN (Verified Allergy, Intermediate, 04/17/13) KETOROLAC (Verified Allergy, Intermediate, 04/17/13) PENICILLINS (Verified Allergy, Intermediate, 04/17/13) Medication History Scheduled Acetic Acid/Aluminum Acetate (Acetic Acid-Aluminum Drops), 4 DROP RIGHT EAR TID Albuterol Sulfate* (Proair Hfa*), 2 PUFFS INH Q6H, (Reported) Amlodipine Besylate (Norvasc), 5 MG ORAL BID, (Reported) Carisoprodol* (Carisoprodol*), 350 MG ORAL Q8HR, (Reported) Carisoprodol* (Soma*), 350 MG PO Q6H, (Reported) Clonidine Hcl* (Catapres*), 0.1 MG ORAL EVERY 4 HOURS, (Reported) Docusate Sodium* (Colace*), 100 MG ORAL DAILY, (Reported) Duloxetine Hcl* (Cymbalta*), 20 MG ORAL DAILY, (Reported) Enoxaparin* (Lovenox*), 40 MG SUBQ DAILY, (Reported) Fluticasone Propionate (Fluticasone Propionate), 2 SPRAY NASAL BID Furosemide* (Lasix*), 40 MG ORAL DAILY, (Reported) Insulin Aspart (Novolog Flexpen), 0 UNITS SUBQ BEFORE MEALS AND HS Insulin Glargine (Lantus), 55 UNIT SUBQ BEDTIME Insulin Lispro (Humalog), 12 UNITS SUBQ DAILY Lisinopril* (Lisinopril*), 10 MG ORAL DAILY, (Reported) Neomycin/Polymyxin/Hydrocort (Uuvrtktq-Peagbbzbw-Rf Ear Soln), 4 DROP RIGHT EAR FOUR TIMES A DAY Scheduled PRN Albuterol Sulfate* (Albuterol Sulfate Hhn*), 3 ML INH Q4H PRN for Shortness of Breath, (Reported) Diphenhydramine Hcl* (Benadryl*), 25 MG ORAL Q6H PRN for Itching, (Reported) Lorazepam* (Ativan*), 2 MG ORAL Q6H PRN for ANXIETY/AGITATION Morphine Sulfate* (Morphine Sulfate*), 15 MG ORAL EVERY 6 HOURS PRN for For Pain , (Reported) Ondansetron* (Zofran*), 4 MG ORAL Q6H PRN for Nausea & Vomiting, (Reported) Oxycodone Hcl* (Oxycodone Hcl*), 15 MG ORAL Q6H PRN for For Pain, (Reported) Zolpidem Tartrate* (Ambien*), 5 MG ORAL BEDTIME PRN for Insomnia, (Reported) Miscellaneous Medications Famotidine (Pepcid Ac), 20 MG PO, (Reported) Nitroglycerin (Nitroglycerin), 0.4 MG SL, (Reported) Patient History History Provided By: Patient, Medical Record, PMD Healthcare decision maker Resuscitation status Full Code Advanced Directive on File Past Medical/Surgical History Past Medical/Surgical History: (1) Acute exacerbation of congestive heart failure (2) Diabetes (3) Intractable pain (4) Osteopenia (5) Peripheral edema (6) Leukopenia (7) HTN (hypertension) (8) Osteoarthritis (9) Otitis externa (10) Hypoglycemia (11) acute lumbar strain (12) bilateral knee contusion (13) right shoulder contusion Social History Social History: (1) Hypoglycemia (2) acute lumbar strain (3) bilateral knee contusion (4) right shoulder contusion (5) Otitis externa (6) Acute exacerbation of congestive heart failure (7) Diabetes (8) Intractable pain (9) Osteopenia (10) Peripheral edema (11) Leukopenia (12) HTN (hypertension) (13) Osteoarthritis Review of Systems Constitutional: Reports: weakness Psychiatric: Reports: anxiety, depressed feelings, prior hx Physical Exam General Appearance: no apparent distress, alert, obese Neurologic: alert, oriented x 3, responsive, normal mood/affect Last 24 Hour Vital Signs Date Time Temp Pulse Resp B/P Pulse Ox O2 Delivery O2 Flow Rate FiO2 01/04/17 13:20 81 138/68 01/04/17 13:04 98.2 01/04/17 12:00 98.2 84 20 179/98 97 Room Air 7/7/17 09:45 90 20 100 Room Air 21 01/04/17 09:31 82 20 96 Room Air 21 01/04/17 08:57 134/66 01/04/17 08:56 82 134/66 01/04/17 07:57 97.6 82 20 134/66 97 Room Air 01/04/17 07:30 82 20 Room Air 21 01/04/17 04:28 97.5 77 19 138/64 95 Room Air 01/04/17 01:23 91 20 98 Room Air 21 01/04/17 01:17 87 20 98 Room Air 21 01/03/17 20:00 97.2 84 20 155/71 92 Room Air 84 01/03/17 16:02 97.0 77 20 150/66 98 Room Air 77 Intake and Output 01/03/17 01/04/17 19:00 07:00 Intake Total 480 ml 500 ml Output Total 1400 ml 1100 ml Balance -920 ml -600 ml Intake Oral 480 ml 500 ml Output Urine Total 1400 ml 1100 ml Laboratory Tests Test 01/04/17 05:25 White Blood Count 3.5 K/UL (4.8-10.8) L Red Blood Count 3.86 M/UL (4.20-5.40) L Hemoglobin 10.6 G/DL (12.0-16.0) L Hematocrit 34.1 % (37.0-47.0) L Mean Corpuscular Volume 88 FL (80-99) Mean Corpuscular Hemoglobin 27.4 PG (27.0-31.0) Mean Corpuscular Hemoglobin Concent 31.1 G/DL (32.0-36.0) L Red Cell Distribution Width 13.5 % (11.6-14.8) Platelet Count 192 K/UL (150-450) Mean Platelet Volume 7.6 FL (6.5-10.1) Neutrophils (%) (Auto) 55.3 % (45.0-75.0) Lymphocytes (%) (Auto) 28.7 % (20.0-45.0) Monocytes (%) (Auto) 14.0 % (1.0-10.0) H Eosinophils (%) (Auto) 1.2 % (0.0-3.0) Basophils (%) (Auto) 0.8 % (0.0-2.0) Sodium Level 136 mEQ/L (135-145) Potassium Level 4.3 mEQ/L (3.4-4.9) Chloride Level 99 mEQ/L (98-107) Carbon Dioxide Level 29 mEQ/L (20-30) Anion Gap 8 (5-15) Blood Urea Nitrogen 19 mg/dL (7-23) Creatinine 0.8 mg/dL (0.5-0.9) Estimat Glomerular Filtration Rate > 60 mL/min (>60) Glucose Level 392 mg/dL (74-106) #H Calcium Level 8.8 mg/dL (8.6-10.2) Height (Feet): 5 Height (Inches): 6.00 Weight (Pounds): 325 Medications Current Medications Medications (Trade) Dose Ordered Sig/Evelia Route PRN Reason Start Time Stop Time Status Last Admin Dose Admin Acetaminophen (Tylenol) 650 mg Q4H PRN ORAL Fever 01/02/17 22:30 02/01/17 22:29 Albuterol/ Ipratropium (DuoNeb 0.5-3(2.5)mg/3ml) 3 ml Q4H PRN HHN Shortness of Breath 01/02/17 22:30 01/07/17 22:29 01/04/17 09:30 Amlodipine Besylate (Norvasc) 5 mg BID ORAL 01/03/17 09:00 02/02/17 08:59 Carisoprodol (Soma) 350 mg Q8HR ORAL 01/03/17 06:00 02/02/17 05:59 01/04/17 00:19 Dextrose (Dextrose 50%) STAT PRN IV Hypoglycemia 01/03/17 17:45 02/02/17 17:44 Duloxetine HCl (Cymbalta) 20 mg DAILY ORAL 01/03/17 09:00 02/02/17 08:59 01/03/17 09:00 Furosemide (Lasix) 40 mg EVERY 8 HOURS IV 01/03/17 06:00 02/02/17 05:59 01/04/17 14:22 Heparin Sodium (Porcine) (Heparin 5000 units/ml) 5,000 units EVERY 12 HOURS SUBQ 01/03/17 09:00 02/02/17 08:59 01/03/17 22:55 Hydromorphone HCl (Dilaudid) 1 mg Q4H PRN IVP Severe Pain (Pain Scale 7-10) 01/03/17 21:00 01/10/17 20:59 01/04/17 12:34 Insulin Aspart (NovoLOG) BEFORE MEALS AND HS SUBQ 01/03/17 06:30 02/02/17 06:29 01/04/17 11:44 Insulin Aspart (NovoLOG) 8 units NOVOTIAC SUBQ 01/04/17 06:30 02/03/17 06:29 01/04/17 11:44 Insulin Detemir (Levemir) 24 units BEDTIME SUBQ 01/03/17 21:00 02/02/17 20:59 01/03/17 22:54 Lisinopril (Zestril) 10 mg DAILY ORAL 01/03/17 09:00 02/02/17 08:59 Ondansetron HCl (Zofran) 4 mg Q6H PRN IVP Nausea & Vomiting 01/02/17 22:30 02/01/17 22:29 Oxycodone HCl (OxyCONTIN) 20 mg Q8H ORAL 01/04/17 10:30 01/11/17 10:29 01/04/17 11:01 Oxycodone HCl (Roxicodone) 10 mg Q6H PRN ORAL Moderate Breakthru Pain (5-7) 01/04/17 11:00 01/11/17 10:59 Polyethylene Glycol (Miralax) 17 gm DAILYPRN PRN ORAL Constipation 01/02/17 22:30 02/01/17 22:29 Temazepam (Restoril) 15 mg HSPRN PRN ORAL Insomnia 01/02/17 22:30 01/09/17 22:29 Assessment/Plan Status: doing well, stable Assessment/Plan pain meds dependence dc when cleared by other services' cleared from psych not a dts/dto Fabienne Zhang M.D. Jan 04, 2017 15:10
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
[2017-01-04 16:02] VITALS: BP 156/89
--- NOTE | 2017-01-04 16:47 | General Progress Note ---
Assessment/Plan Problem List: (1) Diabetes ICD Codes: E11.9 - Type 2 diabetes mellitus without complications SNOMED: 23356583 (2) Intractable pain ICD Codes: G89.29 - Other chronic pain SNOMED: 385203947 (3) Osteopenia (4) HTN (hypertension) ICD Codes: I10 - Essential (primary) hypertension SNOMED: 48517241 (5) Osteoarthritis Assessment/Plan increased Levemir to 35 units qhs continue Novolog 8 units ac tid + SSI Subjective Allergies: Coded Allergies: ASPIRIN (Verified Allergy, Intermediate, 04/17/13) KETOROLAC (Verified Allergy, Intermediate, 04/17/13) PENICILLINS (Verified Allergy, Intermediate, 04/17/13) All Systems: reviewed and negative except above Subjective events noted - interval notes reviewed Objective Last 24 Hour Vital Signs Date Time Temp Pulse Resp B/P Pulse Ox O2 Delivery O2 Flow Rate FiO2 01/04/17 16:02 98.2 86 22 156/89 98 Room Air 01/04/17 13:20 81 138/68 01/04/17 13:04 98.2 01/04/17 12:00 98.2 84 20 179/98 97 Room Air 01/04/17 09:45 90 20 100 Room Air 01/04/17 09:31 82 20 96 Room Air 01/04/17 08:57 134/66 01/04/17 08:56 82 134/66 01/04/17 07:57 97.6 82 20 134/66 97 Room Air 01/04/17 07:30 82 20 Room Air 01/04/17 04:28 97.5 77 19 138/64 95 Room Air 01/04/17 01:23 91 20 98 Room Air 01/04/17 01:17 87 20 98 Room Air 01/03/17 20:00 97.2 84 20 155/71 92 Room Air 84 Intake and Output 01/03/17 01/04/17 19:00 07:00 Intake Total 480 ml 500 ml Output Total 1400 ml 1100 ml Balance -920 ml -600 ml Intake Oral 480 ml 500 ml Output Urine Total 1400 ml 1100 ml Laboratory Tests 01/04/17 05:25: White Blood Count 3.5L, Red Blood Count 3.86L, Hemoglobin 10.6L, Hematocrit 34.1L, Mean Corpuscular Volume 88, Mean Corpuscular Hemoglobin 27.4, Mean Corpuscular Hemoglobin Concent 31.1L, Red Cell Distribution Width 13.5, Platelet Count 192, Mean Platelet Volume 7.6, Neutrophils (%) (Auto) 55.3, Lymphocytes (%) (Auto) 28.7, Monocytes (%) (Auto) 14.0H, Eosinophils (%) (Auto) 1.2, Basophils (%) (Auto) 0.8, Sodium Level 136, Potassium Level 4.3, Chloride Level 99, Carbon Dioxide Level 29, Anion Gap 8, Blood Urea Nitrogen 19, Creatinine 0.8, Estimat Glomerular Filtration Rate > 60, Glucose Level 392#H, Calcium Level 8.8 Height (Feet): 5 Height (Inches): 6.00 Weight (Pounds): 325 General Appearance: no apparent distress Neck: normal alignment Cardiovascular: normal rate Respiratory/Chest: lungs clear Abdomen: non tender Pelvis: normal external exam Edema: no edema noted Arm (L), no edema noted Arm (R), no edema noted Leg (L), no edema noted Leg (R), no edema noted Pedal (L), no edema noted Pedal (R), no edema noted Generalized Objective Current Medications Medications (Trade) Dose Ordered Sig/Evelia Route PRN Reason Start Time Stop Time Status Last Admin Dose Admin Acetaminophen (Tylenol) 650 mg Q4H PRN ORAL Fever 01/02/17 22:30 02/01/17 22:29 Albuterol/ Ipratropium (DuoNeb 0.5-3(2.5)mg/3ml) 3 ml Q4H PRN HHN Shortness of Breath 01/02/17 22:30 01/07/17 22:29 01/04/17 09:30 Amlodipine Besylate (Norvasc) 5 mg BID ORAL 01/03/17 09:00 02/02/17 08:59 Carisoprodol (Soma) 350 mg Q8HR ORAL 01/03/17 06:00 02/02/17 05:59 01/04/17 00:19 Dextrose (Dextrose 50%) STAT PRN IV Hypoglycemia 01/03/17 17:45 02/02/17 17:44 Duloxetine HCl (Cymbalta) 20 mg DAILY ORAL 01/03/17 09:00 02/02/17 08:59 01/03/17 09:00 Furosemide (Lasix) 40 mg EVERY 8 HOURS IV 01/03/17 06:00 02/02/17 05:59 01/04/17 14:22 Heparin Sodium (Porcine) (Heparin 5000 units/ml) 5,000 units EVERY 12 HOURS SUBQ 01/03/17 09:00 02/02/17 08:59 01/03/17 22:55 Hydromorphone HCl (Dilaudid) 1 mg Q4H PRN IVP Severe Pain (Pain Scale 7-10) 01/03/17 21:00 01/10/17 20:59 01/04/17 12:34 Insulin Aspart (NovoLOG) BEFORE MEALS AND HS SUBQ 01/03/17 06:30 02/02/17 06:29 01/04/17 11:44 Insulin Aspart (NovoLOG) 8 units NOVOTIAC SUBQ 01/04/17 06:30 02/03/17 06:29 01/04/17 11:44 Insulin Detemir (Levemir) 24 units BEDTIME SUBQ 01/03/17 21:00 02/02/17 20:59 01/03/17 22:54 Lisinopril (Zestril) 10 mg DAILY ORAL 01/03/17 09:00 02/02/17 08:59 Ondansetron HCl (Zofran) 4 mg Q6H PRN IVP Nausea & Vomiting 01/02/17 22:30 02/01/17 22:29 Oxycodone HCl (OxyCONTIN) 20 mg Q8H ORAL 01/04/17 10:30 01/11/17 10:29 01/04/17 11:01 Oxycodone HCl (Roxicodone) 10 mg Q6H PRN ORAL Moderate Breakthru Pain (5-7) 01/04/17 11:00 01/11/17 10:59 Polyethylene Glycol (Miralax) 17 gm DAILYPRN PRN ORAL Constipation 01/02/17 22:30 02/01/17 22:29 Temazepam (Restoril) 15 mg HSPRN PRN ORAL Insomnia 01/02/17 22:30 01/09/17 22:29 Item Value Date Time Bedside Blood Glucose 110 mg/dl 01/04/17 1611 Bedside Blood Glucose 371 mg/dl H 01/04/17 1144 Bedside Blood Glucose 377 mg/dl H 01/04/17 0628 Bedside Blood Glucose 346 mg/dl H 01/03/17 2255 SUMA ZARCO Jan 04, 2017 16:47
--- NOTE | 2017-01-04 17:24 | General Progress Note ---
Assessment/Plan Assessment/Plan 1. Leukopenia secondary to underlying infection. This is non-congenital neutropenia. We will send for hepatitis panel, HIV, and ultrasound of the abdomen. --->HIV negative --> hep pending 2. Anemia due to chronic disease, is normocytic. 3. Monocytosis, has resolved. 4. Elevation of D-dimer, likely secondary to reactive process. 5. Alkaline phosphatase elevated. 6. Malnutrition, low albumin. 7. Cardiomegaly noted. 8. Discussed with staff. Subjective Constitutional: Reports: no symptoms HEENT: Reports: no symptoms Cardiovascular: Reports: no symptoms Respiratory: Reports: no symptoms Gastrointestinal/Abdominal: Reports: no symptoms Genitourinary: Reports: no symptoms Neurologic/Psychiatric: Reports: no symptoms Endocrine: Reports: no symptoms Hematologic/Lymphatic: Reports: no symptoms Allergies: Coded Allergies: ASPIRIN (Verified Allergy, Intermediate, 04/17/13) KETOROLAC (Verified Allergy, Intermediate, 04/17/13) PENICILLINS (Verified Allergy, Intermediate, 04/17/13) Subjective able to use walker Objective Last 24 Hour Vital Signs Date Time Temp Pulse Resp B/P Pulse Ox O2 Delivery O2 Flow Rate FiO2 01/04/17 16:02 98.2 86 22 156/89 98 Room Air 01/04/17 13:20 81 138/68 01/04/17 13:04 98.2 01/04/17 12:00 98.2 84 20 179/98 97 Room Air 01/04/17 09:45 90 20 100 Room Air 01/04/17 09:31 82 20 96 Room Air 01/04/17 08:57 134/66 01/04/17 08:56 82 134/66 01/04/17 07:57 97.6 82 20 134/66 97 Room Air 01/04/17 07:30 82 20 Room Air 01/04/17 04:28 97.5 77 19 138/64 95 Room Air 01/04/17 01:23 91 20 98 Room Air 01/04/17 01:17 87 20 98 Room Air 21 01/03/17 20:00 97.2 84 20 155/71 92 Room Air 84 Intake and Output 01/03/17 01/04/17 19:00 07:00 Intake Total 480 ml 500 ml Output Total 1400 ml 1100 ml Balance -920 ml -600 ml Intake Oral 480 ml 500 ml Output Urine Total 1400 ml 1100 ml Laboratory Tests 01/04/17 05:25: White Blood Count 3.5L, Red Blood Count 3.86L, Hemoglobin 10.6L, Hematocrit 34.1L, Mean Corpuscular Volume 88, Mean Corpuscular Hemoglobin 27.4, Mean Corpuscular Hemoglobin Concent 31.1L, Red Cell Distribution Width 13.5, Platelet Count 192, Mean Platelet Volume 7.6, Neutrophils (%) (Auto) 55.3, Lymphocytes (%) (Auto) 28.7, Monocytes (%) (Auto) 14.0H, Eosinophils (%) (Auto) 1.2, Basophils (%) (Auto) 0.8, Sodium Level 136, Potassium Level 4.3, Chloride Level 99, Carbon Dioxide Level 29, Anion Gap 8, Blood Urea Nitrogen 19, Creatinine 0.8, Estimat Glomerular Filtration Rate > 60, Glucose Level 392#H, Calcium Level 8.8 Height (Feet): 5 Height (Inches): 6.00 Weight (Pounds): 325 General Appearance: no apparent distress EENT: PERRL/EOMI Neck: non-tender Cardiovascular: normal peripheral pulses Abdomen: normal bowel sounds Edema: no edema noted Pedal (L), no edema noted Pedal (R) Edema: mild edema 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
--- NOTE | 2017-01-04 18:39 | Pulmonology Progress Note ---
Assessment/Plan Problems: (1) Peripheral edema (2) Diabetes (3) Intractable pain Assessment/Plan improving check electrolytes continue current meds all notes, meds and labs reviewed dct prophylaxis Subjective ROS Limited/Unobtainable: No Constitutional: Reports: no symptoms HEENT: Repors: no symptoms Allergies: Coded Allergies: ASPIRIN (Verified Allergy, Intermediate, 04/17/13) KETOROLAC (Verified Allergy, Intermediate, 04/17/13) PENICILLINS (Verified Allergy, Intermediate, 04/17/13) Objective Last 24 Hour Vital Signs Date Time Temp Pulse Resp B/P Pulse Ox O2 Delivery O2 Flow Rate FiO2 01/04/17 18:00 86 156/89 01/04/17 17:21 98.2 01/04/17 16:02 98.2 86 22 156/89 98 Room Air 01/04/17 13:20 81 138/68 01/04/17 12:00 98.2 84 20 179/98 97 Room Air 01/04/17 09:45 90 20 100 Room Air 01/04/17 09:31 82 20 96 Room Air 01/04/17 08:57 134/66 01/04/17 08:56 82 134/66 01/04/17 07:57 97.6 82 20 134/66 97 Room Air 01/04/17 07:30 82 20 Room Air 01/04/17 04:28 97.5 77 19 138/64 95 Room Air 01/04/17 01:23 91 20 98 Room Air 01/04/17 01:17 87 20 98 Room Air 01/03/17 20:00 97.2 84 20 155/71 92 Room Air 84 Intake and Output 01/03/17 01/04/17 19:00 07:00 Intake Total 480 ml 500 ml Output Total 1400 ml 1100 ml Balance -920 ml -600 ml Intake Oral 480 ml 500 ml Output Urine Total 1400 ml 1100 ml General Appearance: WD/WN, no acute distress HEENT: normocephalic, anicteric Respiratory/Chest: chest wall non-tender, lungs clear Breasts: no masses Cardiovascular: normal peripheral pulses Abdomen: normal bowel sounds, soft, non tender Extremities: no cyanosis, no clubbing 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 Laboratory Tests 01/04/17 05:25: White Blood Count 3.5L, Red Blood Count 3.86L, Hemoglobin 10.6L, Hematocrit 34.1L, Mean Corpuscular Volume 88, Mean Corpuscular Hemoglobin 27.4, Mean Corpuscular Hemoglobin Concent 31.1L, Red Cell Distribution Width 13.5, Platelet Count 192, Mean Platelet Volume 7.6, Neutrophils (%) (Auto) 55.3, Lymphocytes (%) (Auto) 28.7, Monocytes (%) (Auto) 14.0H, Eosinophils (%) (Auto) 1.2, Basophils (%) (Auto) 0.8, Sodium Level 136, Potassium Level 4.3, Chloride Level 99, Carbon Dioxide Level 29, Anion Gap 8, Blood Urea Nitrogen 19, Creatinine 0.8, Estimat Glomerular Filtration Rate > 60, Glucose Level 392#H, Calcium Level 8.8 Current Medications Medications (Trade) Dose Ordered Sig/Evelia Route PRN Reason Start Time Stop Time Status Last Admin Dose Admin Acetaminophen (Tylenol) 650 mg Q4H PRN ORAL Fever 01/02/17 22:30 02/01/17 22:29 Albuterol/ Ipratropium (DuoNeb 0.5-3(2.5)mg/3ml) 3 ml Q4H PRN HHN Shortness of Breath 01/02/17 22:30 01/07/17 22:29 01/04/17 09:30 Amlodipine Besylate (Norvasc) 5 mg BID ORAL 01/03/17 09:00 02/02/17 08:59 Carisoprodol (Soma) 350 mg Q8HR ORAL 01/03/17 06:00 02/02/17 05:59 01/04/17 00:19 Dextrose (Dextrose 50%) STAT PRN IV Hypoglycemia 01/03/17 17:45 02/02/17 17:44 Duloxetine HCl (Cymbalta) 20 mg DAILY ORAL 01/03/17 09:00 02/02/17 08:59 01/03/17 09:00 Furosemide (Lasix) 40 mg EVERY 8 HOURS IV 01/03/17 06:00 02/02/17 05:59 01/04/17 14:22 Heparin Sodium (Porcine) (Heparin 5000 units/ml) 5,000 units EVERY 12 HOURS SUBQ 01/03/17 09:00 02/02/17 08:59 01/03/17 22:55 Hydromorphone HCl (Dilaudid) 1 mg Q4H PRN IVP Severe Pain (Pain Scale 7-10) 01/03/17 21:00 01/10/17 20:59 01/04/17 16:51 Insulin Aspart (NovoLOG) BEFORE MEALS AND HS SUBQ 01/03/17 06:30 02/02/17 06:29 01/04/17 11:44 Insulin Aspart (NovoLOG) 8 units NOVOTIAC SUBQ 01/04/17 06:30 02/03/17 06:29 01/04/17 17:04 Insulin Detemir (Levemir) 35 units BEDTIME SUBQ 01/04/17 21:00 02/03/17 20:59 Lisinopril (Zestril) 10 mg DAILY ORAL 01/03/17 09:00 02/02/17 08:59 Ondansetron HCl (Zofran) 4 mg Q6H PRN IVP Nausea & Vomiting 01/02/17 22:30 02/01/17 22:29 Oxycodone HCl (OxyCONTIN) 20 mg Q8H ORAL 01/04/17 10:30 01/11/17 10:29 01/04/17 11:01 Oxycodone HCl (Roxicodone) 10 mg Q6H PRN ORAL Moderate Breakthru Pain (5-7) 01/04/17 11:00 01/11/17 10:59 Polyethylene Glycol (Miralax) 17 gm DAILYPRN PRN ORAL Constipation 01/02/17 22:30 02/01/17 22:29 Temazepam (Restoril) 15 mg HSPRN PRN ORAL Insomnia 01/02/17 22:30 01/09/17 22:29 LLUVIA JENKINS Jan 04, 2017 18:39
[2017-01-04 20:00] VITALS: BP 110/40
[2017-01-04] MEDS ORDERED: Levemir Flexpen SUBQ SCH (21:00)
[2017-01-04 23:43] LABS: TROPONIN I < 0.30 ng/mL (<=0.30)
[2017-01-05] VITALS (7 sets, daily range): BP systolic 117–186; BP diastolic 48–97
[2017-01-05] MEDS: HYDROmorphone 1mg/ml Carpuject IVP PRN ×3 (01:13→20:31)
[2017-01-05] MEDS: DuoNeb 0.5-3(2.5)mg/3ml neb HHN PRN (02:47)
[2017-01-05] MEDS ORDERED: oxyCODONE 5mg IR tab ORAL PRN (03:37)
[2017-01-05] MEDS ORDERED: Miralax 17gm pkt ORAL PRN (03:38)
[2017-01-05] MEDS ORDERED: DuoNeb 0.5-3(2.5)mg/3ml neb HHN PRN ×2 (03:41→23:45)
[2017-01-05] MEDS: oxyCONTIN 20mg tab ORAL SCH ×3 (04:27→21:26)
[2017-01-05] MEDS: NovoLOG Insulin Flexpen SUBQ SCH ×8 (06:45→20:44)
--- NOTE | 2017-01-05 07:45 | Consultation ---
DATE OF CONSULTATION: 01/04/2017 TREATING ATTENDING PHYSICIAN: Alfred Parr D.O. HISTORY OF PRESENT ILLNESS: The patient is a 56-year-old female patient from [facility]. The patient is and agitation. She has been extremely anxious, agitated, irritable, and . She is referred to psychotherapy service due to her current living situations. Denies suicidal or homicidal thoughts of ideation. She states that she does have a history of anxiety. PAST MEDICAL HISTORY: Includes a history of obesity, , arthritis, hypertension, diabetes, diabetes, CHF, and pulmonary hypertension. ALLERGIES: The patient is allergic to aspirin, penicillin and ketorolac. SUBSTANCE USE HISTORY: There is no indication of alcohol use, illicit substance use, or smoking cigarette. PAST PSYCHIATRIC HISTORY: The patient has a history of anxiety. SOCIAL HISTORY: The patient is a 56-year-old female patient from [facility]. The patient denies drinking alcohol or using illicit substance use. MENTAL STATUS EXAMINATION: The patient is alert and oriented x4 to person, place, and time. Mood is depressed. Affect is blunted. Thought process is disorganized. Thought content is linear. The patient has had poor attention and concentration. Poor insight, judgment, and impulse control. DIAGNOSES: [place] I Anxiety disorder. [place] II Deferred [place] III Per History and Physical. PLAN: The patient denies suicidal or homicidal thoughts of ideation. This clinician provided the patient with reality orientation, psychotherapy, and coping skills. Encouraging the patient to participate in treatment in milieu. Continue with medication management and behavioral management. This clinician has reviewed the patient's chart and discussed the treatment with nursing staff. Gaudencio Tran PsyD. : RAFI JOB#: [id number] CC:
[2017-01-05 08:16] LABS: ABG BASE EXCESS 5.2; ABG PCO2 42.1 mmHg (35.0-45.0)
[2017-01-05] MEDS: Heparin 5000 units/ml inj SUBQ SCH ×2 (08:48→20:36)
--- NOTE | 2017-01-05 08:50 | General Progress Note ---
Assessment/Plan Problem List: (1) HTN (hypertension) ICD Codes: I10 - Essential (primary) hypertension SNOMED: 88687259 (2) Osteoarthritis (3) Acute exacerbation of congestive heart failure ICD Codes: I50.9 - Heart failure, unspecified SNOMED: 91085138 (4) Diabetes ICD Codes: E11.9 - Type 2 diabetes mellitus without complications SNOMED: 75661549 (5) Intractable pain ICD Codes: G89.29 - Other chronic pain SNOMED: 885718334 (6) Peripheral edema ICD Codes: R60.9 - Edema, unspecified SNOMED: 437131149 (7) Leukopenia ICD Codes: D72.819 - Decreased whiteblood cell count, unspecified SNOMED: 02484629 Status: stable, progressing, tolerating diet Assessment/Plan ot pt diet o2 pulm tx cardio pulm f/u cbc bmp am psyc transfer Subjective Constitutional: Reports: weakness Allergies: Coded Allergies: ASPIRIN (Verified Allergy, Intermediate, 04/17/13) KETOROLAC (Verified Allergy, Intermediate, 04/17/13) PENICILLINS (Verified Allergy, Intermediate, 04/17/13) All Systems: reviewed and negative except above Subjective sl agitated Objective Last 24 Hour Vital Signs Date Time Temp Pulse Resp B/P Pulse Ox O2 Delivery O2 Flow Rate FiO2 01/05/17 08:45 85 143/86 01/05/17 08:44 143/86 01/05/17 07:23 97 Nasal Cannula 2.0 28 01/05/17 07:23 Nasal Cannula 2.0 28 01/05/17 07:23 85 20 Nasal Cannula 2.0 28 01/05/17 04:00 98.2 85 20 152/78 98 Nasal Cannula 2.0 01/05/17 02:46 80 20 100 Nasal Cannula 3.0 32 01/05/17 02:30 92 24 97 Room Air 01/05/17 00:00 98.8 87 20 186/97 96 Room Air 01/04/17 20:07 88 20 99 Room Air 01/04/17 20:00 98.1 82 20 110/40 98 Room Air 01/04/17 19:59 91 20 Room Air 01/04/17 19:59 91 20 97 Room Air 01/04/17 18:00 86 156/89 01/04/17 17:21 98.2 01/04/17 16:02 98.2 86 22 156/89 98 Room Air 01/04/17 13:20 81 138/68 01/04/17 12:00 98.2 84 20 179/98 97 Room Air 01/04/17 09:45 90 20 100 Room Air 21 01/04/17 09:31 82 20 96 Room Air 21 01/04/17 08:57 134/66 01/04/17 08:56 82 134/66 Intake and Output 01/04/17 01/05/17 19:00 07:00 Intake Total 780 ml Output Total 3300 ml 225 ml Balance -2520 ml -225 ml Intake Oral 780 ml Output Urine Total 3300 ml 225 ml Laboratory Tests 01/04/17 22:30: Troponin I < 0.30 01/05/17 08:05: Arterial Blood pH 7.460H, Arterial Blood Partial Pressure CO2 42.1, Arterial Blood Partial Pressure O2 98.3, Arterial Blood HCO3 29.5H, Arterial Blood Oxygen Saturation 97.4, Arterial Blood Base Excess 5.2, Dean Test Height (Feet): 5 Height (Inches): 6.00 Weight (Pounds): 325 General Appearance: confused EENT: normal ENT inspection Neck: normal alignment Cardiovascular: normal peripheral pulses, normal rate, regular rhythm Respiratory/Chest: chest wall non-tender, lungs clear, normal breath sounds Abdomen: normal bowel sounds, non tender, soft Extremities: normal inspection Edema: 1+ Arm (L), 1+ Arm (R), 1+ Leg (L), 1+ Leg (R), 1+ Pedal (L), 1+ Pedal ( R), 1+ Generalized Edema: mild edema Neurologic: responsive, motor weakness Skin: normal pigmentation, warm/dry GISELLA MARCANO Jan 05, 2017 08:50
[2017-01-05] MEDS ORDERED: Lisinopril 10mg tab ORAL SCH (09:00)
[2017-01-05 09:43] LABS: MEAN CORPUSCULAR HEMOGLOBIN 27.3 PG (27.0-31.0); MEAN CORPUSCULAR HGB CONC 31.3 G/DL (32.0-36.0); MEAN CORPUSCULAR VOLUME 87 FL (80-99); MEAN PLATELET VOLUME 7.2 FL (6.5-10.1); PLATELET COUNT 234 K/UL (150-450); RED BLOOD COUNT 4.32 M/UL (4.20-5.40); RED CELL DISTRIBUTION WIDTH 13.4 % (11.6-14.8); WHITE BLOOD COUNT 3.3 K/UL (4.8-10.8)
[2017-01-05] MEDS ORDERED: Promethazine/Codeine 5ml UD ORAL PRN (09:45)
--- NOTE | 2017-01-05 09:46 | Pulmonology Progress Note ---
Assessment/Plan Problems: (1) Peripheral edema (2) Diabetes (3) Intractable pain Assessment/Plan improving check electrolytes continue current meds all notes, meds and labs reviewed dct prophylaxis Subjective ROS Limited/Unobtainable: No Interval Events: transferred to joyce becuase of uncontrolled htn and dyspnea Allergies: Coded Allergies: ASPIRIN (Verified Allergy, Intermediate, 04/17/13) KETOROLAC (Verified Allergy, Intermediate, 04/17/13) PENICILLINS (Verified Allergy, Intermediate, 04/17/13) Objective Last 24 Hour Vital Signs Date Time Temp Pulse Resp B/P Pulse Ox O2 Delivery O2 Flow Rate FiO2 01/05/17 08:45 85 143/86 01/05/17 08:44 143/86 01/05/17 08:00 97.8 85 20 143/86 98 Nasal Cannula 2.0 01/05/17 07:23 97 Nasal Cannula 2.0 28 01/05/17 07:23 Nasal Cannula 2.0 28 01/05/17 07:23 85 20 Nasal Cannula 2.0 28 01/05/17 04:00 98.2 85 20 152/78 98 Nasal Cannula 2.0 01/05/17 02:46 80 20 100 Nasal Cannula 3.0 32 01/05/17 02:30 92 24 97 Room Air 01/05/17 00:00 98.8 87 20 186/97 96 Room Air 01/04/17 20:07 88 20 99 Room Air 01/04/17 20:00 98.1 82 20 110/40 98 Room Air 01/04/17 19:59 91 20 Room Air 01/04/17 19:59 91 20 97 Room Air 01/04/17 18:00 86 156/89 01/04/17 17:21 98.2 01/04/17 16:02 98.2 86 22 156/89 98 Room Air 01/04/17 13:20 81 138/68 01/04/17 12:00 98.2 84 20 179/98 97 Room Air 01/04/17 09:45 90 20 100 Room Air 21 Intake and Output 01/04/17 01/05/17 19:00 07:00 Intake Total 780 ml Output Total 3300 ml 225 ml Balance -2520 ml -225 ml Intake Oral 780 ml Output Urine Total 3300 ml 225 ml General Appearance: WD/WN HEENT: normocephalic, atraumatic Respiratory/Chest: chest wall non-tender, lungs clear Cardiovascular: normal peripheral pulses Abdomen: normal bowel sounds, soft, non tender Genitourinary: normal external genitalia Extremities: no cyanosis Skin: no rash Microbiology Date/Time Source Procedure Growth Status 01/02/17 22:30 Rectum VRE Culture - Final NO VANCOMYCIN RESISTANT ENTEROCOCCUS ... Complete Laboratory Tests 01/04/17 22:30: Troponin I < 0.30 01/05/17 08:05: Arterial Blood pH 7.460H, Arterial Blood Partial Pressure CO2 42.1, Arterial Blood Partial Pressure O2 98.3, Arterial Blood HCO3 29.5H, Arterial Blood Oxygen Saturation 97.4, Arterial Blood Base Excess 5.2, Dean Test 01/05/17 08:50: White Blood Count [Pending], Red Blood Count [Pending], Hemoglobin [Pending], Hematocrit [Pending], Mean Corpuscular Volume [Pending], Mean Corpuscular Hemoglobin [Pending], Mean Corpuscular Hemoglobin Concent [Pending], Red Cell Distribution Width [Pending], Platelet Count [Pending], Mean Platelet Volume [ Pending], Neutrophils (%) (Auto) [Pending], Lymphocytes (%) (Auto) [Pending], Monocytes (%) (Auto) [Pending], Eosinophils (%) (Auto) [Pending], Basophils (%) (Auto) [Pending], Sodium Level [Pending], Potassium Level [Pending], Chloride Level [Pending], Carbon Dioxide Level [Pending], Blood Urea Nitrogen [Pending], Creatinine [Pending], Estimat Glomerular Filtration Rate [Pending], Glucose Level [Pending], Calcium Level [Pending] Current Medications Medications (Trade) Dose Ordered Sig/Evelia Route PRN Reason Start Time Stop Time Status Last Admin Dose Admin Acetaminophen (Tylenol) 650 mg Q4H PRN ORAL Fever 01/05/17 03:36 02/04/17 03:35 Albuterol/ Ipratropium (DuoNeb 0.5-3(2.5)mg/3ml) 3 ml Q4H PRN HHN Shortness of Breath 01/05/17 03:41 01/10/17 03:40 Amlodipine Besylate (Norvasc) 5 mg BID ORAL 01/05/17 09:00 02/04/17 08:59 01/05/17 08:45 Carisoprodol (Soma) 350 mg Q8HR ORAL 01/05/17 06:00 02/04/17 05:59 01/05/17 06:42 Clonidine HCl (Catapres) 0.1 mg Q6H PRN ORAL For High Blood Pressure 01/05/17 07:45 02/04/17 07:44 Dextrose (Dextrose 50%) STAT PRN IV Hypoglycemia 01/05/17 03:37 02/04/17 03:36 Duloxetine HCl (Cymbalta) 20 mg DAILY ORAL 01/05/17 09:00 02/04/17 08:59 Furosemide (Lasix) 40 mg EVERY 8 HOURS IV 01/05/17 06:00 02/04/17 05:59 01/05/17 06:42 Heparin Sodium (Porcine) (Heparin 5000 units/ml) 5,000 units EVERY 12 HOURS SUBQ 01/05/17 09:00 02/04/17 08:59 01/05/17 08:48 Hydromorphone HCl (Dilaudid) 1 mg Q4H PRN IVP Severe Pain (Pain Scale 7-10) 01/05/17 03:37 01/12/17 03:36 Insulin Aspart (NovoLOG) BEFORE MEALS AND HS SUBQ 01/05/17 06:30 02/04/17 06:29 01/05/17 06:45 Insulin Aspart (NovoLOG) 8 units NOVOTIAC SUBQ 01/05/17 06:30 02/04/17 06:29 01/05/17 06:45 Insulin Detemir (Levemir) 35 units BEDTIME SUBQ 01/05/17 21:00 02/04/17 20:59 Lisinopril (Zestril) 10 mg DAILY ORAL 01/05/17 09:00 02/04/17 08:59 01/05/17 08:44 Ondansetron HCl (Zofran) 4 mg Q6H PRN IVP Nausea & Vomiting 01/05/17 04:30 02/04/17 04:29 Oxycodone HCl (OxyCONTIN) 20 mg Q8H ORAL 01/05/17 04:30 01/12/17 04:29 01/05/17 04:27 Oxycodone HCl (Roxicodone) 10 mg Q6H PRN ORAL Moderate Breakthru Pain (5-7) 01/05/17 03:37 01/12/17 03:36 Polyethylene Glycol (Miralax) 17 gm DAILYPRN PRN ORAL Constipation 01/05/17 03:38 02/04/17 03:37 Temazepam (Restoril) 15 mg HSPRN PRN ORAL Insomnia 01/05/17 21:00 01/12/17 20:59 LLUVIA JENKINS Jan 05, 2017 09:46
[2017-01-05 10:20] LABS: ANION GAP 10 (5-15); CALCIUM 9.4 mg/dL (8.6-10.2); CARBON DIOXIDE 29 mEQ/L (20-30); CHLORIDE 100 mEQ/L (98-107); CREATININE 0.8 mg/dL (0.5-0.9); GLOMERULAR FILTRATION RATE > 60 mL/min (>60); HEMOLYSIS 7; POTASSIUM 4.4 mEQ/L (3.4-4.9); SODIUM 139 mEQ/L (135-145)
[2017-01-05 10:50] LABS: ANISOCYTOSIS 1+; BAND NEUTROPHILS % (MANUAL) 0 % (0-8); BASOPHILS % (MANUAL) 0 % (0-2); EOSINOPHILS % (MANUAL) 2 % (0-3); HYPOCHROMASIA 1+; LYMPHOCYTES % (MANUAL) 29 % (20-45); NEUTROPHILS % (MANUAL) 57 % (45-75); PLATELET ESTIMATE ADEQUATE; PLATELET MORPHOLOGY NORMAL; TOTAL CELLS COUNTED 100
[2017-01-05] MEDS: DuoNeb 0.5-3(2.5)mg/3ml neb HHN SCH ×2 (12:35→19:09)
[2017-01-05] MEDS ORDERED: Levemir Flexpen SUBQ SCH (21:00)
--- NOTE | 2017-01-05 23:54 | General Progress Note ---
Assessment/Plan Status: doing well, stable, progressing Assessment/Plan opioid dependence, mdd the pt reluctant to take psych meds Subjective Constitutional: Reports: malaise, weakness Neurologic/Psychiatric: Reports: anxiety, depressed, emotional problems Allergies: Coded Allergies: ASPIRIN (Verified Allergy, Intermediate, 04/17/13) KETOROLAC (Verified Allergy, Intermediate, 04/17/13) PENICILLINS (Verified Allergy, Intermediate, 04/17/13) Objective Last 24 Hour Vital Signs Date Time Temp Pulse Resp B/P Pulse Ox O2 Delivery O2 Flow Rate FiO2 01/05/17 23:51 97.7 85 20 131/68 95 Nasal Cannula 2.0 01/05/17 22:25 97.7 01/05/17 21:01 97.7 01/05/17 20:00 97.7 83 18 117/64 98 Nasal Cannula 2.0 01/05/17 19:18 93 20 99 Nasal Cannula 2.0 28 01/05/17 19:08 90 20 98 Nasal Cannula 2.0 01/05/17 19:07 98 Nasal Cannula 2.0 01/05/17 19:07 Nasal Cannula 2.0 01/05/17 18:36 86 109/59 01/05/17 16:15 97.3 79 16 126/48 99 Nasal Cannula 2.0 01/05/17 16:00 83 01/05/17 12:35 85 20 97 Room Air 01/05/17 12:00 97.7 80 20 165/76 100 Nasal Cannula 2.0 01/05/17 12:00 81 01/05/17 08:45 85 143/86 01/05/17 08:44 143/86 01/05/17 08:00 97.8 85 20 143/86 98 Nasal Cannula 2.0 01/05/17 07:23 97 Nasal Cannula 2.0 01/05/17 07:23 Nasal Cannula 2.0 28 01/05/17 07:23 85 20 Nasal Cannula 2.0 01/05/17 04:00 98.2 85 20 152/78 98 Nasal Cannula 2.0 01/05/17 02:46 80 20 100 Nasal Cannula 3.0 32 01/05/17 02:30 92 24 97 Room Air 01/05/17 00:00 98.8 87 20 186/97 96 Room Air Intake and Output 01/04/17 01/05/17 19:00 07:00 Intake Total 780 ml Output Total 3300 ml 225 ml Balance -2520 ml -225 ml Intake Oral 780 ml Output Urine Total 3300 ml 225 ml Laboratory Tests 01/05/17 08:05: Arterial Blood pH 7.460H, Arterial Blood Partial Pressure CO2 42.1, Arterial Blood Partial Pressure O2 98.3, Arterial Blood HCO3 29.5H, Arterial Blood Oxygen Saturation 97.4, Arterial Blood Base Excess 5.2, Dean Test 01/05/17 08:50: White Blood Count 3.3L, Red Blood Count 4.32, Hemoglobin 11.8L, Hematocrit 37.8 , Mean Corpuscular Volume 87, Mean Corpuscular Hemoglobin 27.3, Mean Corpuscular Hemoglobin Concent 31.3L, Red Cell Distribution Width 13.4, Platelet Count 234, Mean Platelet Volume 7.2, Neutrophils (%) (Auto) , Lymphocytes (%) (Auto) , Monocytes (%) (Auto) , Eosinophils (%) (Auto) , Basophils (%) (Auto) , Differential Total Cells Counted 100, Neutrophils % ( Manual) 57, Lymphocytes % (Manual) 29, Monocytes % (Manual) 12H, Eosinophils % ( Manual) 2, Basophils % (Manual) 0, Band Neutrophils 0, Platelet Estimate Adequate, Platelet Morphology Normal, Hypochromasia 1+, Anisocytosis 1+, Sodium Level 139, Potassium Level 4.4, Chloride Level 100, Carbon Dioxide Level 29, Anion Gap 10, Blood Urea Nitrogen 16, Creatinine 0.8, Estimat Glomerular Filtration Rate > 60, Glucose Level 137#H, Calcium Level 9.4 Height (Feet): 5 Height (Inches): 6.00 Weight (Pounds): 325 General Appearance: no apparent distress, alert, obese Neurologic: alert, oriented x 3, responsive, depressed affect Fabienne Zhang M.D. Jan 05, 2017 23:54
[2017-01-06] MEDS: DuoNeb 0.5-3(2.5)mg/3ml neb HHN SCH ×4 (01:06→19:40)
[2017-01-06] MEDS: HYDROmorphone 1mg/ml Carpuject IVP PRN ×4 (01:09→19:47)
[2017-01-06] MEDS ORDERED: Promethazine/Codeine 5ml UD ORAL PRN (01:45)
[2017-01-06] MEDS ORDERED: Miralax 17gm pkt ORAL PRN (03:45)
[2017-01-06 04:00] VITALS: BP 128/71
[2017-01-06] MEDS: oxyCONTIN 20mg tab ORAL SCH ×3 (04:40→21:04)
[2017-01-06] MEDS: NovoLOG Insulin Flexpen SUBQ SCH ×7 (06:36→21:11)
--- NOTE | 2017-01-06 06:40 | General Progress Note ---
Assessment/Plan Problem List: (1) Diabetes ICD Codes: E11.9 - Type 2 diabetes mellitus without complications SNOMED: 87319624 (2) Intractable pain ICD Codes: G89.29 - Other chronic pain SNOMED: 826848151 (3) Osteopenia (4) HTN (hypertension) ICD Codes: I10 - Essential (primary) hypertension SNOMED: 62623271 (5) Osteoarthritis Assessment/Plan continue Levemir to 35 units qhs continue Novolog 8 units ac tid + SSI Subjective Allergies: Coded Allergies: ASPIRIN (Verified Allergy, Intermediate, 04/17/13) KETOROLAC (Verified Allergy, Intermediate, 04/17/13) PENICILLINS (Verified Allergy, Intermediate, 04/17/13) All Systems: reviewed and negative except above Subjective transferred to 4 from KEVIN doing better Objective Last 24 Hour Vital Signs Date Time Temp Pulse Resp B/P Pulse Ox O2 Delivery O2 Flow Rate FiO2 01/06/17 04:00 98.1 85 20 128/71 92 Room Air 01/06/17 01:16 95 20 99 Nasal Cannula 2.0 01/06/17 01:06 103 20 96 Room Air 01/05/17 23:51 97.7 85 20 131/68 95 Nasal Cannula 2.0 01/05/17 22:25 97.7 01/05/17 21:01 97.7 01/05/17 20:00 97.7 83 18 117/64 98 Nasal Cannula 2.0 01/05/17 19:18 93 20 99 Nasal Cannula 2.0 01/05/17 19:08 90 20 98 Nasal Cannula 2.0 01/05/17 19:07 98 Nasal Cannula 2.0 01/05/17 19:07 Nasal Cannula 2.0 01/05/17 18:36 86 109/59 01/05/17 16:15 97.3 79 16 126/48 99 Nasal Cannula 2.0 01/05/17 16:00 83 01/05/17 12:35 85 20 97 Room Air 01/05/17 12:00 97.7 80 20 165/76 100 Nasal Cannula 2.0 01/05/17 12:00 81 01/05/17 08:45 85 143/86 01/05/17 08:44 143/86 01/05/17 08:00 97.8 85 20 143/86 98 Nasal Cannula 2.0 01/05/17 07:23 97 Nasal Cannula 2.0 28 01/05/17 07:23 Nasal Cannula 2.0 28 01/05/17 07:23 85 20 Nasal Cannula 2.0 28 Intake and Output 01/05/17 01/06/17 19:00 07:00 Intake Total 200 ml 120 ml Output Total 2050 ml Balance -1850 ml 120 ml Intake Oral 200 ml 120 ml Output Urine Total 2050 ml # Voids 3 Laboratory Tests 01/05/17 08:05: Arterial Blood pH 7.460H, Arterial Blood Partial Pressure CO2 42.1, Arterial Blood Partial Pressure O2 98.3, Arterial Blood HCO3 29.5H, Arterial Blood Oxygen Saturation 97.4, Arterial Blood Base Excess 5.2, Dean Test 01/05/17 08:50: White Blood Count 3.3L, Red Blood Count 4.32, Hemoglobin 11.8L, Hematocrit 37.8 , Mean Corpuscular Volume 87, Mean Corpuscular Hemoglobin 27.3, Mean Corpuscular Hemoglobin Concent 31.3L, Red Cell Distribution Width 13.4, Platelet Count 234, Mean Platelet Volume 7.2, Neutrophils (%) (Auto) , Lymphocytes (%) (Auto) , Monocytes (%) (Auto) , Eosinophils (%) (Auto) , Basophils (%) (Auto) , Differential Total Cells Counted 100, Neutrophils % ( Manual) 57, Lymphocytes % (Manual) 29, Monocytes % (Manual) 12H, Eosinophils % ( Manual) 2, Basophils % (Manual) 0, Band Neutrophils 0, Platelet Estimate Adequate, Platelet Morphology Normal, Hypochromasia 1+, Anisocytosis 1+, Sodium Level 139, Potassium Level 4.4, Chloride Level 100, Carbon Dioxide Level 29, Anion Gap 10, Blood Urea Nitrogen 16, Creatinine 0.8, Estimat Glomerular Filtration Rate > 60, Glucose Level 137#H, Calcium Level 9.4 Height (Feet): 5 Height (Inches): 6.00 Weight (Pounds): 325 General Appearance: no apparent distress EENT: PERRL/EOMI Neck: non-tender Cardiovascular: normal peripheral pulses Respiratory/Chest: chest wall non-tender Abdomen: normal bowel sounds Pelvis: normal external exam Edema: no edema noted Arm (L), no edema noted Arm (R), no edema noted Leg (L), no edema noted Leg (R), no edema noted Pedal (L), no edema noted Pedal (R), no edema noted Generalized Objective Current Medications Medications (Trade) Dose Ordered Sig/Evelia Route PRN Reason Start Time Stop Time Status Last Admin Dose Admin Acetaminophen (Tylenol) 650 mg Q4H PRN ORAL Fever 01/05/17 23:45 02/04/17 23:44 Albuterol/ Ipratropium (DuoNeb 0.5-3(2.5)mg/3ml) 3 ml Q4H PRN HHN Shortness of Breath 01/05/17 23:45 01/10/17 23:44 Albuterol/ Ipratropium (DuoNeb 0.5-3(2.5)mg/3ml) 3 ml Q6HRT HHN 01/06/17 01:00 01/11/17 00:59 01/06/17 01:06 Amlodipine Besylate (Norvasc) 5 mg BID ORAL 01/06/17 09:00 02/05/17 08:59 Carisoprodol (Soma) 350 mg Q8HR ORAL 01/06/17 06:00 02/05/17 05:59 01/06/17 06:34 Clonidine HCl (Catapres) 0.1 mg Q6H PRN ORAL For High Blood Pressure 01/06/17 01:45 02/05/17 01:44 Dextrose (Dextrose 50%) STAT PRN IV Hypoglycemia 01/06/17 03:45 02/05/17 03:44 Duloxetine HCl (Cymbalta) 20 mg DAILY ORAL 01/06/17 09:00 02/05/17 08:59 Furosemide (Lasix) 40 mg EVERY 8 HOURS IV 01/06/17 06:00 02/05/17 05:59 01/06/17 06:34 Heparin Sodium (Porcine) (Heparin 5000 units/ml) 5,000 units EVERY 12 HOURS SUBQ 01/06/17 09:00 02/05/17 08:59 Hydromorphone HCl (Dilaudid) 1 mg Q4H PRN IVP Severe Pain (Pain Scale 7-10) 01/05/17 23:45 01/12/17 23:44 01/06/17 01:09 Insulin Aspart (NovoLOG) BEFORE MEALS AND HS SUBQ 01/06/17 06:30 02/05/17 06:29 01/06/17 06:36 Insulin Aspart (NovoLOG) 8 units NOVOTIAC SUBQ 01/06/17 06:30 02/05/17 06:29 01/06/17 06:37 Insulin Detemir (Levemir) 35 units BEDTIME SUBQ 01/06/17 21:00 02/05/17 20:59 Lisinopril (Zestril) 10 mg DAILY ORAL 01/06/17 09:00 02/05/17 08:59 Ondansetron HCl (Zofran) 4 mg Q6H PRN IVP Nausea & Vomiting 01/05/17 22:30 02/04/17 22:29 Oxycodone HCl (OxyCONTIN) 20 mg Q8H ORAL 01/06/17 04:30 01/13/17 04:29 01/06/17 04:40 Oxycodone HCl (Roxicodone) 10 mg Q6H PRN ORAL Moderate Breakthru Pain (5-7) 01/06/17 03:45 01/13/17 03:44 Polyethylene Glycol (Miralax) 17 gm DAILYPRN PRN ORAL Constipation 01/06/17 03:45 02/05/17 03:44 Promethazine HCl/ Codeine (Phenergan with Codeine) 5 ml Q4H PRN ORAL For Cough 01/06/17 01:45 02/05/17 01:44 Temazepam (Restoril) 15 mg HSPRN PRN ORAL Insomnia 01/06/17 21:00 01/13/17 20:59 Item Value Date Time Bedside Blood Glucose 192 mg/dl H 01/06/17 0637 Bedside Blood Glucose 232 mg/dl H 01/05/17 2048 Bedside Blood Glucose 111 mg/dl 01/05/17 1648 Bedside Blood Glucose 147 mg/dl H 01/05/17 1254 Bedside Blood Glucose 160 mg/dl H 01/05/17 0645 SUMA ZARCO Jan 06, 2017 06:40
[2017-01-06 07:20] LABS: BASOPHILS % (AUTO) 1.5 % (0.0-2.0); EOSINOPHILS % (AUTO) 1.7 % (0.0-3.0); LYMPHOCYTES % (AUTO) 39.7 % (20.0-45.0); MEAN CORPUSCULAR HEMOGLOBIN 27.2 PG (27.0-31.0); MEAN CORPUSCULAR HGB CONC 30.7 G/DL (32.0-36.0); MEAN CORPUSCULAR VOLUME 89 FL (80-99); MEAN PLATELET VOLUME 7.6 FL (6.5-10.1); MONOCYTES % (AUTO) 10.6 % (1.0-10.0); NEUTROPHILS % (AUTO) 46.5 % (45.0-75.0); PLATELET COUNT 217 K/UL (150-450); RED BLOOD COUNT 4.19 M/UL (4.20-5.40); RED CELL DISTRIBUTION WIDTH 13.6 % (11.6-14.8); WHITE BLOOD COUNT 3.7 K/UL (4.8-10.8)
--- NOTE | 2017-01-06 07:37 | General Progress Note ---
Assessment/Plan Problem List: (1) HTN (hypertension) ICD Codes: I10 - Essential (primary) hypertension SNOMED: 60982210 (2) Osteoarthritis (3) Acute exacerbation of congestive heart failure ICD Codes: I50.9 - Heart failure, unspecified SNOMED: 53944263 (4) Diabetes ICD Codes: E11.9 - Type 2 diabetes mellitus without complications SNOMED: 58835822 (5) Intractable pain ICD Codes: G89.29 - Other chronic pain SNOMED: 099786361 (6) Peripheral edema ICD Codes: R60.9 - Edema, unspecified SNOMED: 390106017 (7) Leukopenia ICD Codes: D72.819 - Decreased whiteblood cell count, unspecified SNOMED: 30902978 Status: unchanged Assessment/Plan ot pt diet o2 pulm tx cardio pulm f/u cbc bmp am psyc transfer Subjective Constitutional: Reports: weakness Allergies: Coded Allergies: ASPIRIN (Verified Allergy, Intermediate, 04/17/13) KETOROLAC (Verified Allergy, Intermediate, 04/17/13) PENICILLINS (Verified Allergy, Intermediate, 04/17/13) All Systems: reviewed and negative except above Subjective sl agitated Objective Last 24 Hour Vital Signs Date Time Temp Pulse Resp B/P Pulse Ox O2 Delivery O2 Flow Rate FiO2 01/06/17 04:00 98.1 85 20 128/71 92 Room Air 01/06/17 01:16 95 20 99 Nasal Cannula 2.0 01/06/17 01:06 103 20 96 Room Air 01/05/17 23:51 97.7 85 20 131/68 95 Nasal Cannula 2.0 01/05/17 22:25 97.7 01/05/17 21:01 97.7 01/05/17 20:00 97.7 83 18 117/64 98 Nasal Cannula 2.0 01/05/17 19:18 93 20 99 Nasal Cannula 2.0 01/05/17 19:08 90 20 98 Nasal Cannula 2.0 01/05/17 19:07 98 Nasal Cannula 2.0 01/05/17 19:07 Nasal Cannula 2.0 28 01/05/17 18:36 86 109/59 01/05/17 16:15 97.3 79 16 126/48 99 Nasal Cannula 2.0 01/05/17 16:00 83 01/05/17 12:35 85 20 97 Room Air 01/05/17 12:00 97.7 80 20 165/76 100 Nasal Cannula 2.0 01/05/17 12:00 81 01/05/17 08:45 85 143/86 01/05/17 08:44 143/86 01/05/17 08:00 97.8 85 20 143/86 98 Nasal Cannula 2.0 Intake and Output 01/05/17 01/06/17 19:00 07:00 Intake Total 200 ml 120 ml Output Total 2050 ml 750 ml Balance -1850 ml -630 ml Intake Oral 200 ml 120 ml Output Urine Total 2050 ml 750 ml Laboratory Tests 01/05/17 08:05: Arterial Blood pH 7.460H, Arterial Blood Partial Pressure CO2 42.1, Arterial Blood Partial Pressure O2 98.3, Arterial Blood HCO3 29.5H, Arterial Blood Oxygen Saturation 97.4, Arterial Blood Base Excess 5.2, Dean Test 01/05/17 08:50: White Blood Count 3.3L, Red Blood Count 4.32, Hemoglobin 11.8L, Hematocrit 37.8 , Mean Corpuscular Volume 87, Mean Corpuscular Hemoglobin 27.3, Mean Corpuscular Hemoglobin Concent 31.3L, Red Cell Distribution Width 13.4, Platelet Count 234, Mean Platelet Volume 7.2, Neutrophils (%) (Auto) , Lymphocytes (%) (Auto) , Monocytes (%) (Auto) , Eosinophils (%) (Auto) , Basophils (%) (Auto) , Differential Total Cells Counted 100, Neutrophils % ( Manual) 57, Lymphocytes % (Manual) 29, Monocytes % (Manual) 12H, Eosinophils % ( Manual) 2, Basophils % (Manual) 0, Band Neutrophils 0, Platelet Estimate Adequate, Platelet Morphology Normal, Hypochromasia 1+, Anisocytosis 1+, Sodium Level 139, Potassium Level 4.4, Chloride Level 100, Carbon Dioxide Level 29, Anion Gap 10, Blood Urea Nitrogen 16, Creatinine 0.8, Estimat Glomerular Filtration Rate > 60, Glucose Level 137#H, Calcium Level 9.4 01/06/17 05:25: White Blood Count 3.7L, Red Blood Count 4.19L, Hemoglobin 11.4L, Hematocrit 37.2 , Mean Corpuscular Volume 89, Mean Corpuscular Hemoglobin 27.2, Mean Corpuscular Hemoglobin Concent 30.7L, Red Cell Distribution Width 13.6, Platelet Count 217, Mean Platelet Volume 7.6, Neutrophils (%) (Auto) 46.5, Lymphocytes (%) (Auto) 39.7, Monocytes (%) (Auto) 10.6H, Eosinophils (%) (Auto) 1.7, Basophils (%) (Auto) 1.5, Sodium Level [Pending], Potassium Level [Pending] , Chloride Level [Pending], Carbon Dioxide Level [Pending], Blood Urea Nitrogen [Pending], Creatinine [Pending], Estimat Glomerular Filtration Rate [Pending], Glucose Level [Pending], Calcium Level [Pending] Height (Feet): 5 Height (Inches): 6.00 Weight (Pounds): 325 General Appearance: confused EENT: normal ENT inspection Neck: normal alignment Cardiovascular: normal peripheral pulses, normal rate, regular rhythm Respiratory/Chest: chest wall non-tender, lungs clear, normal breath sounds Abdomen: normal bowel sounds, non tender, soft Extremities: normal inspection Edema: 1+ Arm (L), 1+ Arm (R), 1+ Leg (L), 1+ Leg (R), 1+ Pedal (L), 1+ Pedal ( R), 1+ Generalized Neurologic: motor weakness Skin: normal pigmentation, warm/dry GISELLA MARCANO Jan 06, 2017 07:36
[2017-01-06 07:48] LABS: ANION GAP 10 (5-15); CALCIUM 9.1 mg/dL (8.6-10.2); CARBON DIOXIDE 30 mEQ/L (20-30); CHLORIDE 98 mEQ/L (98-107); CREATININE 1.1 mg/dL (0.5-0.9); GLOMERULAR FILTRATION RATE > 60 mL/min (>60); HEMOLYSIS 10; POTASSIUM 4.1 mEQ/L (3.4-4.9); SODIUM 138 mEQ/L (135-145)
[2017-01-06] MEDS: Lisinopril 10mg tab ORAL SCH (08:06)
[2017-01-06] MEDS: Heparin 5000 units/ml inj SUBQ SCH ×2 (08:08→21:12)
[2017-01-06 08:23] VITALS: BP 110/55
[2017-01-06 11:22] VITALS: BP 123/62
--- NOTE | 2017-01-06 11:56 | General Progress Note ---
Assessment/Plan Assessment/Plan (1) H/o Lumbar surgery (2) Lumbar Radiculopathy (3) Lumbar Spondylosis (4) Lumbar DDD (5) Morbid Obesity (6) Cervical Radiculopathy (7) Cervical Spondylosis (8) Cervical DDD (9) H/o Cervical fusion The patient will be continued on OxyContin, oxycodone and Dilaudid. The patient was discussed with Dr. Serrano and Dr. Serrano concurred. Subjective Date patient seen: Jan 06, 2017 Time patient seen: 11:00 - am Allergies: Coded Allergies: ASPIRIN (Verified Allergy, Intermediate, 04/17/13) KETOROLAC (Verified Allergy, Intermediate, 04/17/13) PENICILLINS (Verified Allergy, Intermediate, 04/17/13) Subjective REVIEW OF SYSTEMS: Denies rash, fever, chills, sweating, dizziness, drowsiness, blurred vision, sore throat, and change in weight. No nausea, vomiting, diarrhea or blood in the stool or urine. No bowel or bladder incontinence. Denies shortness of breath, swelling in the lower extremities, neck and low back pain. SUBJECTIVE: Patient reports that her pain has been better tolerated on the Oxycontin Dilaudid and Oxycodone. She has no new pain complaints. Objective Last 24 Hour Vital Signs Date Time Temp Pulse Resp B/P Pulse Ox O2 Delivery O2 Flow Rate FiO2 01/06/17 11:22 97.6 76 20 123/62 98 Room Air 01/06/17 08:23 98.0 83 20 110/55 98 Room Air 01/06/17 07:55 91 21 98 Nasal Cannula 2.0 01/06/17 07:45 91 20 98 Room Air 01/06/17 07:44 Nasal Cannula 2.0 01/06/17 07:41 98 01/06/17 04:00 98.1 85 20 128/71 92 Room Air 01/06/17 01:16 95 20 99 Nasal Cannula 2.0 28 01/06/17 01:06 103 20 96 Room Air 01/05/17 23:51 97.7 85 20 131/68 95 Nasal Cannula 2.0 01/05/17 22:25 97.7 01/05/17 21:01 97.7 01/05/17 20:00 97.7 83 18 117/64 98 Nasal Cannula 2.0 01/05/17 19:18 93 20 99 Nasal Cannula 2.0 28 01/05/17 19:08 90 20 98 Nasal Cannula 2.0 01/05/17 19:07 98 Nasal Cannula 2.0 01/05/17 19:07 Nasal Cannula 2.0 01/05/17 18:36 86 109/59 01/05/17 16:15 97.3 79 16 126/48 99 Nasal Cannula 2.0 01/05/17 16:00 83 01/05/17 12:35 85 20 97 Room Air 01/05/17 12:00 97.7 80 20 165/76 100 Nasal Cannula 2.0 01/05/17 12:00 81 Intake and Output 01/05/17 01/06/17 19:00 07:00 Intake Total 200 ml 120 ml Output Total 2050 ml 750 ml Balance -1850 ml -630 ml Intake Oral 200 ml 120 ml Output Urine Total 2050 ml 750 ml Laboratory Tests 01/06/17 05:25: White Blood Count 3.7L, Red Blood Count 4.19L, Hemoglobin 11.4L, Hematocrit 37.2 , Mean Corpuscular Volume 89, Mean Corpuscular Hemoglobin 27.2, Mean Corpuscular Hemoglobin Concent 30.7L, Red Cell Distribution Width 13.6, Platelet Count 217, Mean Platelet Volume 7.6, Neutrophils (%) (Auto) 46.5, Lymphocytes (%) (Auto) 39.7, Monocytes (%) (Auto) 10.6H, Eosinophils (%) (Auto) 1.7, Basophils (%) (Auto) 1.5, Sodium Level 138, Potassium Level 4.1, Chloride Level 98, Carbon Dioxide Level 30, Anion Gap 10, Blood Urea Nitrogen 23, Creatinine 1.1H, Estimat Glomerular Filtration Rate > 60, Glucose Level 207H, Calcium Level 9.1 Height (Feet): 5 Height (Inches): 6.00 Weight (Pounds): 325 Objective GENERAL: Alert, awake, and oriented x3. HEENT: PERRLA. NECK: Range of motion is decreased due to patients pain and condition tenderness in the paracervical muscles. No adenopathy. LUNGS: Decreased breath sounds bilaterally. HEART: S1, S2 regular. ABDOMEN: Obese. BACK: Range of motion is decreased in flexion and extension with tenderness in the paraspinal muscles. No tenderness to trapezius and rhomboid muscles. EXTREMITIES: No cyanosis. No clubbing with severe edema noted in bilateral lower extremities. NEURO: No changes. VERÓNICA VINCENT Jan 06, 2017 11:56
--- NOTE | 2017-01-06 12:07 | General Progress Note ---
Assessment/Plan Assessment/Plan 1. Leukopenia secondary to underlying infection. Congenital neutropenia. We will send for hepatitis panel, HIV, and ultrasound of the abdomen. --> HIV negative --> hepatitis pending 2. Anemia due to chronic disease, is normocytic. 3. Monocytosis, has resolved. 4. Elevation of D-dimer, likely secondary to reactive process. 5. Alkaline phosphatase elevated. 6. Malnutrition, low albumin. 7. Cardiomegaly noted. 8. Discussed with staff. Subjective Date patient seen: Jan 05, 2017 Constitutional: Reports: no symptoms HEENT: Reports: no symptoms Cardiovascular: Reports: no symptoms Respiratory: Reports: no symptoms Gastrointestinal/Abdominal: Reports: no symptoms Genitourinary: Reports: no symptoms Neurologic/Psychiatric: Reports: no symptoms Endocrine: Reports: no symptoms Hematologic/Lymphatic: Reports: anemia Allergies: Coded Allergies: ASPIRIN (Verified Allergy, Intermediate, 04/17/13) KETOROLAC (Verified Allergy, Intermediate, 04/17/13) PENICILLINS (Verified Allergy, Intermediate, 04/17/13) Subjective tired this am Objective Last 24 Hour Vital Signs Date Time Temp Pulse Resp B/P Pulse Ox O2 Delivery O2 Flow Rate FiO2 01/06/17 11:22 97.6 76 20 123/62 98 Room Air 01/06/17 08:23 98.0 83 20 110/55 98 Room Air 01/06/17 07:55 91 21 98 Nasal Cannula 2.0 01/06/17 07:45 91 20 98 Room Air 01/06/17 07:44 Nasal Cannula 2.0 01/06/17 07:41 98 01/06/17 04:00 98.1 85 20 128/71 92 Room Air 01/06/17 01:16 95 20 99 Nasal Cannula 2.0 01/06/17 01:06 103 20 96 Room Air 01/05/17 23:51 97.7 85 20 131/68 95 Nasal Cannula 2.0 01/05/17 22:25 97.7 01/05/17 21:01 97.7 01/05/17 20:00 97.7 83 18 117/64 98 Nasal Cannula 2.0 01/05/17 19:18 93 20 99 Nasal Cannula 2.0 01/05/17 19:08 90 20 98 Nasal Cannula 2.0 01/05/17 19:07 98 Nasal Cannula 2.0 17 19:07 Nasal Cannula 2.0 01/05/17 18:36 86 109/59 01/05/17 16:15 97.3 79 16 126/48 99 Nasal Cannula 2.0 01/05/17 16:00 83 01/05/17 12:35 85 20 97 Room Air Intake and Output 01/05/17 01/06/17 19:00 07:00 Intake Total 200 ml 120 ml Output Total 2050 ml 750 ml Balance -1850 ml -630 ml Intake Oral 200 ml 120 ml Output Urine Total 2050 ml 750 ml Laboratory Tests 01/06/17 05:25: White Blood Count 3.7L, Red Blood Count 4.19L, Hemoglobin 11.4L, Hematocrit 37.2 , Mean Corpuscular Volume 89, Mean Corpuscular Hemoglobin 27.2, Mean Corpuscular Hemoglobin Concent 30.7L, Red Cell Distribution Width 13.6, Platelet Count 217, Mean Platelet Volume 7.6, Neutrophils (%) (Auto) 46.5, Lymphocytes (%) (Auto) 39.7, Monocytes (%) (Auto) 10.6H, Eosinophils (%) (Auto) 1.7, Basophils (%) (Auto) 1.5, Sodium Level 138, Potassium Level 4.1, Chloride Level 98, Carbon Dioxide Level 30, Anion Gap 10, Blood Urea Nitrogen 23, Creatinine 1.1H, Estimat Glomerular Filtration Rate > 60, Glucose Level 207H, Calcium Level 9.1 Height (Feet): 5 Height (Inches): 6.00 Weight (Pounds): 325 General Appearance: alert EENT: TMs normal Neck: supple Cardiovascular: regular rhythm Respiratory/Chest: normal breath sounds Abdomen: non tender Extremities: non-tender Edema: no edema noted Leg (L), no edema noted Leg (R) Edema: mild edema Neurologic: alert Skin: warm/dry Ryan Bryant Jan 06, 2017 12:07
[2017-01-06] MEDS ORDERED: Sucralfate 1gm tab ORAL PRN (15:00)
[2017-01-06 15:38] VITALS: BP 133/57
--- NOTE | 2017-01-06 15:41 | Pulmonology Progress Note ---
Assessment/Plan Problems: (1) Peripheral edema (2) Diabetes (3) Intractable pain Assessment/Plan improving check electrolytes continue current meds all notes, meds and labs reviewed pt/ot Subjective ROS Limited/Unobtainable: No Allergies: Coded Allergies: ASPIRIN (Verified Allergy, Intermediate, 04/17/13) KETOROLAC (Verified Allergy, Intermediate, 04/17/13) PENICILLINS (Verified Allergy, Intermediate, 04/17/13) Objective Last 24 Hour Vital Signs Date Time Temp Pulse Resp B/P Pulse Ox O2 Delivery O2 Flow Rate FiO2 01/06/17 15:38 98.8 85 20 133/57 94 Room Air 01/06/17 13:12 93 21 97 Room Air 01/06/17 12:59 92 22 97 Room Air 01/06/17 11:22 97.6 76 20 123/62 98 Room Air 01/06/17 08:23 98.0 83 20 110/55 98 Room Air 01/06/17 07:55 91 21 98 Nasal Cannula 2.0 01/06/17 07:45 91 20 98 Room Air 01/06/17 07:44 Nasal Cannula 2.0 01/06/17 07:41 98 01/06/17 04:00 98.1 85 20 128/71 92 Room Air 01/06/17 01:16 95 20 99 Nasal Cannula 2.0 01/06/17 01:06 103 20 96 Room Air 01/05/17 23:51 97.7 85 20 131/68 95 Nasal Cannula 2.0 01/05/17 22:25 97.7 01/05/17 21:01 97.7 01/05/17 20:00 97.7 83 18 117/64 98 Nasal Cannula 2.0 01/05/17 19:18 93 20 99 Nasal Cannula 2.0 28 01/05/17 19:08 90 20 98 Nasal Cannula 2.0 01/05/17 19:07 98 Nasal Cannula 2.0 01/05/17 19:07 Nasal Cannula 2.0 01/05/17 18:36 86 109/59 01/05/17 16:15 97.3 79 16 126/48 99 Nasal Cannula 2.0 01/05/17 16:00 83 Intake and Output 01/05/17 01/06/17 19:00 07:00 Intake Total 200 ml 120 ml Output Total 2050 ml 750 ml Balance -1850 ml -630 ml Intake Oral 200 ml 120 ml Output Urine Total 2050 ml 750 ml General Appearance: WD/WN HEENT: normocephalic, atraumatic Breasts: no masses Cardiovascular: normal peripheral pulses Abdomen: normal bowel sounds, soft, non tender, no scars Extremities: no cyanosis, no clubbing Skin: no lesions 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 Resulted Laboratory Tests 01/06/17 05:25: White Blood Count 3.7L, Red Blood Count 4.19L, Hemoglobin 11.4L, Hematocrit 37.2 , Mean Corpuscular Volume 89, Mean Corpuscular Hemoglobin 27.2, Mean Corpuscular Hemoglobin Concent 30.7L, Red Cell Distribution Width 13.6, Platelet Count 217, Mean Platelet Volume 7.6, Neutrophils (%) (Auto) 46.5, Lymphocytes (%) (Auto) 39.7, Monocytes (%) (Auto) 10.6H, Eosinophils (%) (Auto) 1.7, Basophils (%) (Auto) 1.5, Sodium Level 138, Potassium Level 4.1, Chloride Level 98, Carbon Dioxide Level 30, Anion Gap 10, Blood Urea Nitrogen 23, Creatinine 1.1H, Estimat Glomerular Filtration Rate > 60, Glucose Level 207H, Calcium Level 9.1 Current Medications Medications (Trade) Dose Ordered Sig/Evelia Route PRN Reason Start Time Stop Time Status Last Admin Dose Admin Acetaminophen (Tylenol) 650 mg Q4H PRN ORAL Fever 01/05/17 23:45 02/04/17 23:44 01/06/17 15:38 Albuterol/ Ipratropium (DuoNeb 0.5-3(2.5)mg/3ml) 3 ml Q4H PRN HHN Shortness of Breath 01/05/17 23:45 01/10/17 23:44 Albuterol/ Ipratropium (DuoNeb 0.5-3(2.5)mg/3ml) 3 ml Q6HRT HHN 01/06/17 01:00 01/11/17 00:59 7/9/17 12:57 Amlodipine Besylate (Norvasc) 5 mg BID ORAL 01/06/17 09:00 02/05/17 08:59 Carisoprodol (Soma) 350 mg Q8HR ORAL 01/06/17 06:00 02/05/17 05:59 01/06/17 06:34 Clonidine HCl (Catapres) 0.1 mg Q6H PRN ORAL For High Blood Pressure 01/06/17 01:45 02/05/17 01:44 Dextrose (Dextrose 50%) STAT PRN IV Hypoglycemia 01/06/17 03:45 02/05/17 03:44 Duloxetine HCl (Cymbalta) 20 mg DAILY ORAL 01/06/17 09:00 02/05/17 08:59 01/06/17 08:05 Furosemide (Lasix) 40 mg EVERY 8 HOURS IV 01/06/17 06:00 02/05/17 05:59 01/06/17 14:07 Heparin Sodium (Porcine) (Heparin 5000 units/ml) 5,000 units EVERY 12 HOURS SUBQ 01/06/17 09:00 02/05/17 08:59 01/06/17 08:08 Hydromorphone HCl (Dilaudid) 1 mg Q4H PRN IVP Severe Pain (Pain Scale 7-10) 01/05/17 23:45 01/12/17 23:44 01/06/17 14:07 Insulin Aspart (NovoLOG) BEFORE MEALS AND HS SUBQ 01/06/17 06:30 02/05/17 06:29 01/06/17 11:34 Insulin Aspart (NovoLOG) 8 units NOVOTIAC SUBQ 01/06/17 06:30 02/05/17 06:29 01/06/17 11:35 Insulin Detemir (Levemir) 35 units BEDTIME SUBQ 01/06/17 21:00 02/05/17 20:59 Lisinopril (Zestril) 10 mg DAILY ORAL 01/06/17 09:00 02/05/17 08:59 Ondansetron HCl (Zofran) 4 mg Q6H PRN IVP Nausea & Vomiting 01/05/17 22:30 02/04/17 22:29 Oxycodone HCl (OxyCONTIN) 20 mg Q8H ORAL 01/06/17 04:30 01/13/17 04:29 01/06/17 13:09 Oxycodone HCl (Roxicodone) 10 mg Q6H PRN ORAL Moderate Breakthru Pain (5-7) 01/06/17 03:45 01/13/17 03:44 Pantoprazole (Protonix) 40 mg EVERY 12 HOURS ORAL 01/06/17 21:00 02/05/17 20:59 Polyethylene Glycol (Miralax) 17 gm DAILYPRN PRN ORAL Constipation 01/06/17 03:45 02/05/17 03:44 Promethazine HCl/ Codeine (Phenergan with Codeine) 5 ml Q4H PRN ORAL For Cough 01/06/17 01:45 02/05/17 01:44 Sucralfate (Carafate) 1 gm Q4H PRN ORAL Abdominal cramps 01/06/17 15:00 02/05/17 14:59 Temazepam (Restoril) 15 mg HSPRN PRN ORAL Insomnia 01/06/17 21:00 01/13/17 20:59 LLUVIA JENKINS Jan 06, 2017 15:41
[2017-01-06 20:00] VITALS: BP 114/64
[2017-01-06] MEDS: Levemir Flexpen SUBQ SCH (21:11)
[2017-01-06 23:36] VITALS: BP 122/65
--- NOTE | 2017-01-06 23:50 | General Progress Note ---
Assessment/Plan Assessment/Plan 1. Leukopenia secondary to underlying infection. Congenital neutropenia. We will send for hepatitis panel, HIV, and ultrasound of the abdomen. --> HIV negative --> hepatitis pending 2. Anemia due to chronic disease, is normocytic. 3. Monocytosis, has resolved. 4. Elevation of D-dimer, likely secondary to reactive process. 5. Alkaline phosphatase elevated. 6. Malnutrition, low albumin. 7. Cardiomegaly noted. 8. Discussed with staff. Subjective Constitutional: Reports: no symptoms HEENT: Reports: no symptoms Cardiovascular: Reports: no symptoms Respiratory: Reports: no symptoms Gastrointestinal/Abdominal: Reports: no symptoms, poor appetite Neurologic/Psychiatric: Reports: no symptoms Hematologic/Lymphatic: Reports: anemia Allergies: Coded Allergies: ASPIRIN (Verified Allergy, Intermediate, 04/17/13) KETOROLAC (Verified Allergy, Intermediate, 04/17/13) PENICILLINS (Verified Allergy, Intermediate, 04/17/13) Subjective no complaints, not bleeding Objective Last 24 Hour Vital Signs Date Time Temp Pulse Resp B/P Pulse Ox O2 Delivery O2 Flow Rate FiO2 01/06/17 23:36 98.6 81 20 122/65 95 Room Air 01/06/17 21:00 98.4 01/06/17 20:34 79 18 98 Room Air 01/06/17 20:00 100.0 80 22 114/64 96 Room Air 01/06/17 19:43 21 01/06/17 19:42 80 18 96 Room Air 01/06/17 19:38 96 Room Air 01/06/17 19:38 Room Air 21 01/06/17 17:13 85 133/57 01/06/17 15:38 98.8 85 20 133/57 94 Room Air 01/06/17 13:12 93 21 97 Room Air 01/06/17 12:59 92 22 97 Room Air 01/06/17 11:22 97.6 76 20 123/62 98 Room Air 01/06/17 08:23 98.0 83 20 110/55 98 Room Air 01/06/17 07:55 91 21 98 Nasal Cannula 2.0 01/06/17 07:45 91 20 98 Room Air 01/06/17 07:44 Nasal Cannula 2.0 01/06/17 07:41 98 01/06/17 04:00 98.1 85 20 128/71 92 Room Air 01/06/17 01:16 95 20 99 Nasal Cannula 2.0 28 01/06/17 01:06 103 20 96 Room Air 01/05/17 23:51 97.7 85 20 131/68 95 Nasal Cannula 2.0 Intake and Output 01/05/17 01/06/17 19:00 07:00 Intake Total 200 ml 120 ml Output Total 2050 ml 750 ml Balance -1850 ml -630 ml Intake Oral 200 ml 120 ml Output Urine Total 2050 ml 750 ml Laboratory Tests 01/06/17 05:25: White Blood Count 3.7L, Red Blood Count 4.19L, Hemoglobin 11.4L, Hematocrit 37.2 , Mean Corpuscular Volume 89, Mean Corpuscular Hemoglobin 27.2, Mean Corpuscular Hemoglobin Concent 30.7L, Red Cell Distribution Width 13.6, Platelet Count 217, Mean Platelet Volume 7.6, Neutrophils (%) (Auto) 46.5, Lymphocytes (%) (Auto) 39.7, Monocytes (%) (Auto) 10.6H, Eosinophils (%) (Auto) 1.7, Basophils (%) (Auto) 1.5, Sodium Level 138, Potassium Level 4.1, Chloride Level 98, Carbon Dioxide Level 30, Anion Gap 10, Blood Urea Nitrogen 23, Creatinine 1.1H, Estimat Glomerular Filtration Rate > 60, Glucose Level 207H, Calcium Level 9.1 Height (Feet): 5 Height (Inches): 6.00 Weight (Pounds): 325 General Appearance: alert EENT: TMs normal Neck: normal alignment Cardiovascular: regular rhythm Respiratory/Chest: lungs clear Abdomen: no organomegaly Extremities: non-tender Edema: no edema noted Leg (L), no edema noted Leg (R) Edema: trace edema Neurologic: alert Ryan Bryant Jan 06, 2017 23:50
[2017-01-07] MEDS: HYDROmorphone 1mg/ml Carpuject IVP PRN ×6 (00:33→22:55)
[2017-01-07] MEDS: DuoNeb 0.5-3(2.5)mg/3ml neb HHN SCH ×4 (01:59→19:47)
[2017-01-07 04:00] VITALS: BP 124/66
[2017-01-07] MEDS: oxyCONTIN 20mg tab ORAL SCH ×3 (04:30→20:40)
[2017-01-07] MEDS: NovoLOG Insulin Flexpen SUBQ SCH ×7 (06:09→20:43)
[2017-01-07 07:11] LABS: MEAN CORPUSCULAR HEMOGLOBIN 26.8 PG (27.0-31.0); MEAN CORPUSCULAR HGB CONC 30.5 G/DL (32.0-36.0); MEAN CORPUSCULAR VOLUME 88 FL (80-99); MEAN PLATELET VOLUME 7.4 FL (6.5-10.1); PLATELET COUNT 187 K/UL (150-450); RED BLOOD COUNT 3.97 M/UL (4.20-5.40); RED CELL DISTRIBUTION WIDTH 13.3 % (11.6-14.8); WHITE BLOOD COUNT 3.3 K/UL (4.8-10.8)
[2017-01-07 07:41] LABS: ANION GAP 8 (5-15); CALCIUM 8.5 mg/dL (8.6-10.2); CARBON DIOXIDE 31 mEQ/L (20-30); CHLORIDE 101 mEQ/L (98-107); CREATININE 0.9 mg/dL (0.5-0.9); GLOMERULAR FILTRATION RATE > 60 mL/min (>60); HEMOLYSIS 3; POTASSIUM 4.2 mEQ/L (3.4-4.9); SODIUM 140 mEQ/L (135-145)
[2017-01-07 08:00] VITALS: BP 150/58
[2017-01-07] MEDS: Lisinopril 10mg tab ORAL SCH ×2 (08:30→09:00)
[2017-01-07] MEDS: Heparin 5000 units/ml inj SUBQ SCH ×3 (08:31→20:42)
--- NOTE | 2017-01-07 08:31 | General Progress Note ---
Assessment/Plan Assessment/Plan (1) H/o Lumbar surgery (2) Lumbar Radiculopathy (3) Lumbar Spondylosis (4) Lumbar DDD (5) Morbid Obesity (6) Cervical Radiculopathy (7) Cervical Spondylosis (8) Cervical DDD (9) H/o Cervical fusion The patient will be continued on OxyContin, oxycodone and Dilaudid. The patient was discussed with Dr. Serrano and Dr. Serrano concurred. Subjective Date patient seen: Jan 07, 2017 Time patient seen: 06:45 - am Allergies: Coded Allergies: ASPIRIN (Verified Allergy, Intermediate, 04/17/13) KETOROLAC (Verified Allergy, Intermediate, 04/17/13) PENICILLINS (Verified Allergy, Intermediate, 04/17/13) Subjective REVIEW OF SYSTEMS: Denies rash, fever, chills, sweating, dizziness, drowsiness, blurred vision, sore throat, and change in weight. No nausea, vomiting, diarrhea or blood in the stool or urine. No bowel or bladder incontinence. Denies shortness of breath, swelling in the lower extremities, neck and low back pain. SUBJECTIVE: Patient states that her pain has been tolerated on the Oxycontin, Oxycodone and Dilaudid. She has no new complaints. Objective Last 24 Hour Vital Signs Date Time Temp Pulse Resp B/P Pulse Ox O2 Delivery O2 Flow Rate FiO2 01/07/17 07:38 Room Air 01/07/17 07:38 89 16 99 Room Air 01/07/17 07:30 85 16 96 Room Air 01/07/17 07:30 21 01/07/17 07:27 96 Room Air 01/07/17 04:00 98.4 80 20 124/66 96 Room Air 01/07/17 02:15 88 16 94 Room Air 01/07/17 02:00 76 14 98 Room Air 01/07/17 02:00 21 01/06/17 23:36 98.6 81 20 122/65 95 Room Air 01/06/17 21:00 98.4 01/06/17 20:34 79 18 98 Room Air 01/06/17 20:00 100.0 80 22 114/64 96 Room Air 01/06/17 19:43 21 01/06/17 19:42 80 18 96 Room Air 01/06/17 19:38 96 Room Air 21 01/06/17 19:38 Room Air 21 01/06/17 17:13 85 133/57 01/06/17 15:38 98.8 85 20 133/57 94 Room Air 01/06/17 13:12 93 21 97 Room Air 01/06/17 12:59 92 22 97 Room Air 01/06/17 11:22 97.6 76 20 123/62 98 Room Air Intake and Output 01/06/17 01/07/17 19:00 07:00 Intake Total 960 ml 400 ml Output Total 2000 ml 2800 ml Balance -1040 ml -2400 ml Intake Oral 960 ml 400 ml Output Urine Total 2000 ml 2800 ml # Bowel Movements 1 Laboratory Tests 01/07/17 04:35: White Blood Count 3.3L, Red Blood Count 3.97L, Hemoglobin 10.6L, Hematocrit 34.8L, Mean Corpuscular Volume 88, Mean Corpuscular Hemoglobin 26.8L, Mean Corpuscular Hemoglobin Concent 30.5L, Red Cell Distribution Width 13.3, Platelet Count 187, Mean Platelet Volume 7.4, Neutrophils (%) (Auto) , Lymphocytes (%) (Auto) , Monocytes (%) (Auto) , Eosinophils (%) (Auto) , Basophils (%) (Auto) , Neutrophils % (Manual) [Pending], Lymphocytes % (Manual) [Pending], Platelet Estimate [Pending], Platelet Morphology [Pending], Sodium Level 140, Potassium Level 4.2, Chloride Level 101, Carbon Dioxide Level 31H, Anion Gap 8, Blood Urea Nitrogen 23, Creatinine 0.9, Estimat Glomerular Filtration Rate > 60, Glucose Level 145H, Calcium Level 8.5L Height (Feet): 5 Height (Inches): 6.00 Weight (Pounds): 325 Objective GENERAL: Alert, awake, and oriented x3. HEENT: PERRLA. NECK: Range of motion is decreased due to patients pain and condition tenderness in the paracervical muscles. No adenopathy. LUNGS: Decreased breath sounds bilaterally. HEART: S1, S2 regular. ABDOMEN: Obese. BACK: Range of motion is decreased in flexion and extension with tenderness in the paraspinal muscles. No tenderness to trapezius and rhomboid muscles. EXTREMITIES: No cyanosis. No clubbing with severe edema noted in bilateral lower extremities. NEURO: No changes. VERÓNICA VINCENT Jan 07, 2017 08:31
--- NOTE | 2017-01-07 08:38 | Diagnostic Imaging Report ---
Indications: Shortness breath Technique: Portable AP chest Findings: Comparison: 01/03/17 Cardiac silhouette remains enlarged. Pulmonary vasculature remains only redistributed. Lungs and pleura remain clear. Cervical fusion hardware again noted. IMPRESSION: Stable cardiomegaly with suggestion of pulmonary venous hypertension, without overt pulmonary edema/congestive heart failure
[2017-01-07] MEDS: oxyCODONE 5mg IR tab ORAL PRN ×2 (08:42→16:44)
[2017-01-07 09:44] LABS: EOSINOPHILS % (MANUAL) 1 % (0-3); LYMPHOCYTES % (MANUAL) 41 % (20-45); NEUTROPHILS % (MANUAL) 51 % (45-75); TOTAL CELLS COUNTED 100
[2017-01-07 09:45] LABS: BAND NEUTROPHILS % (MANUAL) 0 % (0-8); BASOPHILS % (MANUAL) 0 % (0-2); HYPOCHROMASIA 1+; PLATELET ESTIMATE ADEQUATE; PLATELET MORPHOLOGY NORMAL
[2017-01-07 12:00] VITALS: BP 127/64
--- NOTE | 2017-01-07 15:19 | General Progress Note ---
Assessment/Plan Problem List: (1) HTN (hypertension) ICD Codes: I10 - Essential (primary) hypertension SNOMED: 85521848 (2) Osteoarthritis (3) Acute exacerbation of congestive heart failure ICD Codes: I50.9 - Heart failure, unspecified SNOMED: 24734076 (4) Diabetes ICD Codes: E11.9 - Type 2 diabetes mellitus without complications SNOMED: 32800410 (5) Intractable pain ICD Codes: G89.29 - Other chronic pain SNOMED: 477331577 (6) Peripheral edema ICD Codes: R60.9 - Edema, unspecified SNOMED: 952855095 (7) Leukopenia ICD Codes: D72.819 - Decreased whiteblood cell count, unspecified SNOMED: 29980676 Status: stable, progressing, tolerating diet Assessment/Plan ot pt diet o2 pulm tx dc to snf if clear by cardio pulm Subjective Constitutional: Reports: weakness Allergies: Coded Allergies: ASPIRIN (Verified Allergy, Intermediate, 04/17/13) KETOROLAC (Verified Allergy, Intermediate, 04/17/13) PENICILLINS (Verified Allergy, Intermediate, 04/17/13) All Systems: reviewed and negative except above Subjective sl agitated Objective Last 24 Hour Vital Signs Date Time Temp Pulse Resp B/P Pulse Ox O2 Delivery O2 Flow Rate FiO2 01/07/17 12:40 87 16 Room Air 01/07/17 12:32 83 16 96 Room Air 01/07/17 12:32 21 01/07/17 12:00 98.6 75 18 127/64 96 Room Air 01/07/17 09:07 84 150/58 01/07/17 08:00 98.1 84 19 150/58 96 01/07/17 07:38 Room Air 01/07/17 07:38 89 16 99 Room Air 01/07/17 07:30 85 16 96 Room Air 01/07/17 07:30 21 01/07/17 07:27 96 Room Air 01/07/17 04:00 98.4 80 20 124/66 96 Room Air 01/07/17 02:15 88 16 94 Room Air 01/07/17 02:00 76 14 98 Room Air 01/07/17 02:00 21 01/06/17 23:36 98.6 81 20 122/65 95 Room Air 01/06/17 21:00 98.4 7/9/17 20:34 79 18 98 Room Air 21 01/06/17 20:00 100.0 80 22 114/64 96 Room Air 01/06/17 19:43 21 01/06/17 19:42 80 18 96 Room Air 21 01/06/17 19:38 96 Room Air 21 01/06/17 19:38 Room Air 21 01/06/17 17:13 85 133/57 01/06/17 15:38 98.8 85 20 133/57 94 Room Air Intake and Output 01/06/17 01/07/17 19:00 07:00 Intake Total 960 ml 400 ml Output Total 2000 ml 2800 ml Balance -1040 ml -2400 ml Intake Oral 960 ml 400 ml Output Urine Total 2000 ml 2800 ml # Bowel Movements 1 Laboratory Tests 01/07/17 04:35: White Blood Count 3.3L, Red Blood Count 3.97L, Hemoglobin 10.6L, Hematocrit 34.8L, Mean Corpuscular Volume 88, Mean Corpuscular Hemoglobin 26.8L, Mean Corpuscular Hemoglobin Concent 30.5L, Red Cell Distribution Width 13.3, Platelet Count 187, Mean Platelet Volume 7.4, Neutrophils (%) (Auto) , Lymphocytes (%) (Auto) , Monocytes (%) (Auto) , Eosinophils (%) (Auto) , Basophils (%) (Auto) , Differential Total Cells Counted 100, Neutrophils % ( Manual) 51, Lymphocytes % (Manual) 41, Monocytes % (Manual) 7, Eosinophils % ( Manual) 1, Basophils % (Manual) 0, Band Neutrophils 0, Platelet Estimate Adequate, Platelet Morphology Normal, Hypochromasia 1+, Sodium Level 140, Potassium Level 4.2, Chloride Level 101, Carbon Dioxide Level 31H, Anion Gap 8, Blood Urea Nitrogen 23, Creatinine 0.9, Estimat Glomerular Filtration Rate > 60 , Glucose Level 145H, Calcium Level 8.5L Height (Feet): 5 Height (Inches): 6.00 Weight (Pounds): 325 General Appearance: lethargic EENT: normal ENT inspection Neck: normal alignment Cardiovascular: normal peripheral pulses, normal rate, regular rhythm Respiratory/Chest: chest wall non-tender, lungs clear, normal breath sounds Abdomen: normal bowel sounds, non tender, soft Extremities: normal inspection Edema: no edema noted Arm (L), no edema noted Arm (R), no edema noted Leg (L), no edema noted Leg (R), no edema noted Pedal (L), no edema noted Pedal (R), no edema noted Generalized Neurologic: motor weakness Skin: normal pigmentation, warm/dry GISELLA MARCANO Jan 07, 2017 15:19
--- NOTE | 2017-01-07 15:34 | Pulmonology Progress Note ---
Assessment/Plan Problems: (1) Peripheral edema (2) Diabetes (3) Intractable pain Assessment/Plan improving check electrolytes continue current meds all notes, meds and labs reviewed pt/ot dc planning in progress Subjective ROS Limited/Unobtainable: No Allergies: Coded Allergies: ASPIRIN (Verified Allergy, Intermediate, 04/17/13) KETOROLAC (Verified Allergy, Intermediate, 04/17/13) PENICILLINS (Verified Allergy, Intermediate, 04/17/13) Objective Last 24 Hour Vital Signs Date Time Temp Pulse Resp B/P Pulse Ox O2 Delivery O2 Flow Rate FiO2 01/07/17 12:40 87 16 Room Air 01/07/17 12:32 83 16 96 Room Air 01/07/17 12:32 21 01/07/17 12:00 98.6 75 18 127/64 96 Room Air 01/07/17 09:07 84 150/58 01/07/17 08:00 98.1 84 19 150/58 96 01/07/17 07:38 Room Air 01/07/17 07:38 89 16 99 Room Air 01/07/17 07:30 85 16 96 Room Air 01/07/17 07:30 21 01/07/17 07:27 96 Room Air 01/07/17 04:00 98.4 80 20 124/66 96 Room Air 01/07/17 02:15 88 16 94 Room Air 01/07/17 02:00 76 14 98 Room Air 01/07/17 02:00 01/06/17 23:36 98.6 81 20 122/65 95 Room Air 01/06/17 21:00 98.4 01/06/17 20:34 79 18 98 Room Air 01/06/17 20:00 100.0 80 22 114/64 96 Room Air 01/06/17 19:43 21 01/06/17 19:42 80 18 96 Room Air 01/06/17 19:38 96 Room Air 01/06/17 19:38 Room Air 01/06/17 17:13 85 133/57 01/06/17 15:38 98.8 85 20 133/57 94 Room Air Intake and Output 01/06/17 01/07/17 19:00 07:00 Intake Total 960 ml 400 ml Output Total 2000 ml 2800 ml Balance -1040 ml -2400 ml Intake Oral 960 ml 400 ml Output Urine Total 2000 ml 2800 ml # Bowel Movements 1 General Appearance: WD/WN HEENT: normocephalic Breasts: no masses Cardiovascular: normal peripheral pulses Abdomen: normal bowel sounds, soft, non tender, no scars Extremities: no clubbing 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, no motor/sensory deficits Microbiology Date/Time Source Procedure Growth Status 01/05/17 17:30 Sputum Gram Stain - Final Complete 01/05/17 17:30 Sputum Sputum Culture - Final NORMAL UPPER RESPIRATORY SHAAN PRESENT Complete Laboratory Tests 01/07/17 04:35: White Blood Count 3.3L, Red Blood Count 3.97L, Hemoglobin 10.6L, Hematocrit 34.8L, Mean Corpuscular Volume 88, Mean Corpuscular Hemoglobin 26.8L, Mean Corpuscular Hemoglobin Concent 30.5L, Red Cell Distribution Width 13.3, Platelet Count 187, Mean Platelet Volume 7.4, Neutrophils (%) (Auto) , Lymphocytes (%) (Auto) , Monocytes (%) (Auto) , Eosinophils (%) (Auto) , Basophils (%) (Auto) , Differential Total Cells Counted 100, Neutrophils % ( Manual) 51, Lymphocytes % (Manual) 41, Monocytes % (Manual) 7, Eosinophils % ( Manual) 1, Basophils % (Manual) 0, Band Neutrophils 0, Platelet Estimate Adequate, Platelet Morphology Normal, Hypochromasia 1+, Sodium Level 140, Potassium Level 4.2, Chloride Level 101, Carbon Dioxide Level 31H, Anion Gap 8, Blood Urea Nitrogen 23, Creatinine 0.9, Estimat Glomerular Filtration Rate > 60 , Glucose Level 145H, Calcium Level 8.5L Current Medications Medications (Trade) Dose Ordered Sig/Evelia Route PRN Reason Start Time Stop Time Status Last Admin Dose Admin Acetaminophen (Tylenol) 650 mg Q4H PRN ORAL Fever 01/05/17 23:45 02/04/17 23:44 01/06/17 15:38 Albuterol/ Ipratropium (DuoNeb 0.5-3(2.5)mg/3ml) 3 ml Q4H PRN HHN Shortness of Breath 01/05/17 23:45 01/10/17 23:44 Albuterol/ Ipratropium (DuoNeb 0.5-3(2.5)mg/3ml) 3 ml Q6HRT HHN 01/06/17 01:00 01/11/17 00:59 01/07/17 12:38 Amlodipine Besylate (Norvasc) 5 mg BID ORAL 01/06/17 09:00 02/05/17 08:59 01/07/17 09:07 Carisoprodol (Soma) 350 mg Q8HR ORAL 01/06/17 06:00 02/05/17 05:59 01/07/17 13:56 Clonidine HCl (Catapres) 0.1 mg Q6H PRN ORAL For High Blood Pressure 01/06/17 01:45 02/05/17 01:44 Dextrose (Dextrose 50%) STAT PRN IV Hypoglycemia 01/06/17 03:45 02/05/17 03:44 Diphenhydramine HCl (Benadryl) 50 mg Q6H PRN ORAL Itching 01/07/17 11:15 02/06/17 11:14 Duloxetine HCl (Cymbalta) 20 mg DAILY ORAL 01/06/17 09:00 02/05/17 08:59 01/07/17 08:29 Furosemide (Lasix) 40 mg EVERY 8 HOURS IV 01/06/17 06:00 02/05/17 05:59 01/07/17 06:05 Heparin Sodium (Porcine) (Heparin 5000 units/ml) 5,000 units EVERY 12 HOURS SUBQ 01/06/17 09:00 02/05/17 08:59 01/07/17 08:58 Hydromorphone HCl (Dilaudid) 1 mg Q4H PRN IVP Severe Pain (Pain Scale 7-10) 01/05/17 23:45 01/12/17 23:44 01/07/17 14:45 Insulin Aspart (NovoLOG) BEFORE MEALS AND HS SUBQ 01/06/17 06:30 02/05/17 06:29 01/07/17 06:09 Insulin Aspart (NovoLOG) 8 units NOVOTIAC SUBQ 01/06/17 06:30 02/05/17 06:29 01/07/17 06:09 Insulin Detemir (Levemir) 35 units BEDTIME SUBQ 01/06/17 21:00 02/05/17 20:59 01/06/17 21:11 Lisinopril (Zestril) 10 mg DAILY ORAL 01/06/17 09:00 02/05/17 08:59 Ondansetron HCl (Zofran) 4 mg Q6H PRN IVP Nausea & Vomiting 01/05/17 22:30 02/04/17 22:29 Oxycodone HCl (OxyCONTIN) 20 mg Q8H ORAL 01/06/17 04:30 01/13/17 04:29 01/07/17 12:32 Oxycodone HCl (Roxicodone) 10 mg Q6H PRN ORAL Moderate Breakthru Pain (5-7) 01/06/17 03:45 01/13/17 03:44 01/07/17 08:42 Pantoprazole (Protonix) 40 mg EVERY 12 HOURS ORAL 01/06/17 21:00 02/05/17 20:59 01/07/17 09:08 Polyethylene Glycol (Miralax) 17 gm DAILYPRN PRN ORAL Constipation 01/06/17 03:45 02/05/17 03:44 01/07/17 00:33 Promethazine HCl/ Codeine (Phenergan with Codeine) 5 ml Q4H PRN ORAL For Cough 01/06/17 01:45 02/05/17 01:44 Sucralfate (Carafate) 1 gm Q4H PRN ORAL Abdominal cramps 01/06/17 15:00 02/05/17 14:59 Temazepam (Restoril) 15 mg HSPRN PRN ORAL Insomnia 01/06/17 21:00 01/13/17 20:59 LLUVIA JENKINS Jan 07, 2017 15:34
[2017-01-07 16:00] VITALS: BP 156/86
--- NOTE | 2017-01-07 18:37 | General Progress Note ---
Assessment/Plan Status: doing well, stable, progressing Assessment/Plan opioid dependence, mdd the pt reluctant to take psych meds Subjective Constitutional: Reports: malaise, weakness Cardiovascular: Reports: chest pain Allergies: Coded Allergies: ASPIRIN (Verified Allergy, Intermediate, 04/17/13) KETOROLAC (Verified Allergy, Intermediate, 04/17/13) PENICILLINS (Verified Allergy, Intermediate, 04/17/13) Subjective "I don't have a place to go to" the pt had multiple complaints. Objective Last 24 Hour Vital Signs Date Time Temp Pulse Resp B/P Pulse Ox O2 Delivery O2 Flow Rate FiO2 01/07/17 18:05 85 156/86 01/07/17 16:00 98.2 85 19 156/86 93 Room Air 01/07/17 12:40 87 16 Room Air 01/07/17 12:32 83 16 96 Room Air 01/07/17 12:32 21 01/07/17 12:00 98.6 75 18 127/64 96 Room Air 01/07/17 09:07 84 150/58 01/07/17 08:00 98.1 84 19 150/58 96 01/07/17 07:38 Room Air 01/07/17 07:38 89 16 99 Room Air 01/07/17 07:30 85 16 96 Room Air 01/07/17 07:30 21 01/07/17 07:27 96 Room Air 01/07/17 04:00 98.4 80 20 124/66 96 Room Air 01/07/17 02:15 88 16 94 Room Air 01/07/17 02:00 76 14 98 Room Air 01/07/17 02:00 01/06/17 23:36 98.6 81 20 122/65 95 Room Air 01/06/17 21:00 98.4 01/06/17 20:34 79 18 98 Room Air 01/06/17 20:00 100.0 80 22 114/64 96 Room Air 01/06/17 19:43 21 01/06/17 19:42 80 18 96 Room Air 01/06/17 19:38 96 Room Air 01/06/17 19:38 Room Air 21 Intake and Output 01/06/17 01/07/17 19:00 07:00 Intake Total 960 ml 400 ml Output Total 2000 ml 2800 ml Balance -1040 ml -2400 ml Intake Oral 960 ml 400 ml Output Urine Total 2000 ml 2800 ml # Bowel Movements 1 Laboratory Tests 01/07/17 04:35: White Blood Count 3.3L, Red Blood Count 3.97L, Hemoglobin 10.6L, Hematocrit 34.8L, Mean Corpuscular Volume 88, Mean Corpuscular Hemoglobin 26.8L, Mean Corpuscular Hemoglobin Concent 30.5L, Red Cell Distribution Width 13.3, Platelet Count 187, Mean Platelet Volume 7.4, Neutrophils (%) (Auto) , Lymphocytes (%) (Auto) , Monocytes (%) (Auto) , Eosinophils (%) (Auto) , Basophils (%) (Auto) , Differential Total Cells Counted 100, Neutrophils % ( Manual) 51, Lymphocytes % (Manual) 41, Monocytes % (Manual) 7, Eosinophils % ( Manual) 1, Basophils % (Manual) 0, Band Neutrophils 0, Platelet Estimate Adequate, Platelet Morphology Normal, Hypochromasia 1+, Sodium Level 140, Potassium Level 4.2, Chloride Level 101, Carbon Dioxide Level 31H, Anion Gap 8, Blood Urea Nitrogen 23, Creatinine 0.9, Estimat Glomerular Filtration Rate > 60 , Glucose Level 145H, Calcium Level 8.5L Height (Feet): 5 Height (Inches): 6.00 Weight (Pounds): 325 General Appearance: no apparent distress, alert, obese, morbidly obese Neurologic: alert, oriented x 3, responsive, depressed affect Fabienne Zhang M.D. Jan 07, 2017 18:37
[2017-01-07 19:56] VITALS: BP 115/50
[2017-01-07] MEDS: Levemir Flexpen SUBQ SCH (20:42)
--- NOTE | 2017-01-07 22:55 | General Progress Note ---
Assessment/Plan Assessment/Plan 1. Leukopenia secondary to underlying infection. Congenital neutropenia. --> viral studies are negative --> us of the abdomen still pending results 2. Anemia due to chronic disease, is normocytic. 3. Monocytosis, has resolved. 4. Elevation of D-dimer, likely secondary to reactive process. 5. Alkaline phosphatase elevated. 6. Malnutrition, low albumin. 7. Cardiomegaly noted. 8. Discussed with staff. Subjective Constitutional: Denies: chills, diaphoresis, fever, malaise, no symptoms, other , weakness HEENT: Denies: blurred vision, double vision, ear discharge, ear pain, eye pain , mouth pain, mouth swelling, no symptoms, nose congestion, nose pain, other, tearing, throat pain, throat swelling Cardiovascular: Denies: chest pain, edema, irregular heart rate, lightheadedness, no symptoms, other, palpitations, syncope Respiratory: Denies: SOB at rest, SOB with excertion, cough, no symptoms, orthopnea, other, shortness of breath, sputum, stridor, wheezing Gastrointestinal/Abdominal: Denies: abdomen distended, abdominal pain, black stools, blood in stool, constipated, diarrhea, difficulty swallowing, nausea, no symptoms, other, poor appetite, poor fluid intake, rectal bleeding, tarry stools, vomiting Genitourinary: Denies: burning, discharge, flank pain, frequency, hematuria, incontinence, no symptoms, other, pain, urgency Allergies: Coded Allergies: ASPIRIN (Verified Allergy, Intermediate, 04/17/13) KETOROLAC (Verified Allergy, Intermediate, 04/17/13) PENICILLINS (Verified Allergy, Intermediate, 04/17/13) Subjective no complaints, not bleeding, refusing some meds Objective Last 24 Hour Vital Signs Date Time Temp Pulse Resp B/P Pulse Ox O2 Delivery O2 Flow Rate FiO2 01/07/17 19:56 98.1 82 18 115/50 96 Room Air 01/07/17 19:50 21 01/07/17 19:50 81 18 95 Room Air 21 01/07/17 19:50 80 18 97 Room Air 21 01/07/17 19:50 Room Air 01/07/17 19:49 95 Room Air 21 01/07/17 19:11 98.1 01/07/17 18:05 85 156/86 01/07/17 16:00 98.2 85 19 156/86 93 Room Air 01/07/17 12:40 87 16 Room Air 01/07/17 12:32 83 16 96 Room Air 01/07/17 12:32 21 01/07/17 12:00 98.6 75 18 127/64 96 Room Air 01/07/17 09:07 84 150/58 01/07/17 08:00 98.1 84 19 150/58 96 01/07/17 07:38 Room Air 01/07/17 07:38 89 16 99 Room Air 01/07/17 07:30 85 16 96 Room Air 01/07/17 07:30 21 01/07/17 07:27 96 Room Air 01/07/17 04:00 98.4 80 20 124/66 96 Room Air 01/07/17 02:15 88 16 94 Room Air 01/07/17 02:00 76 14 98 Room Air 01/07/17 02:00 21 01/06/17 23:36 98.6 81 20 122/65 95 Room Air Intake and Output 01/06/17 01/07/17 19:00 07:00 Intake Total 960 ml 400 ml Output Total 2000 ml 2800 ml Balance -1040 ml -2400 ml Intake Oral 960 ml 400 ml Output Urine Total 2000 ml 2800 ml # Bowel Movements 1 Laboratory Tests 01/07/17 04:35: White Blood Count 3.3L, Red Blood Count 3.97L, Hemoglobin 10.6L, Hematocrit 34.8L, Mean Corpuscular Volume 88, Mean Corpuscular Hemoglobin 26.8L, Mean Corpuscular Hemoglobin Concent 30.5L, Red Cell Distribution Width 13.3, Platelet Count 187, Mean Platelet Volume 7.4, Neutrophils (%) (Auto) , Lymphocytes (%) (Auto) , Monocytes (%) (Auto) , Eosinophils (%) (Auto) , Basophils (%) (Auto) , Differential Total Cells Counted 100, Neutrophils % ( Manual) 51, Lymphocytes % (Manual) 41, Monocytes % (Manual) 7, Eosinophils % ( Manual) 1, Basophils % (Manual) 0, Band Neutrophils 0, Platelet Estimate Adequate, Platelet Morphology Normal, Hypochromasia 1+, Sodium Level 140, Potassium Level 4.2, Chloride Level 101, Carbon Dioxide Level 31H, Anion Gap 8, Blood Urea Nitrogen 23, Creatinine 0.9, Estimat Glomerular Filtration Rate > 60 , Glucose Level 145H, Calcium Level 8.5L Height (Feet): 5 Height (Inches): 6.00 Weight (Pounds): 325 General Appearance: no apparent distress EENT: TMs normal Neck: supple Cardiovascular: normal rate Respiratory/Chest: lungs clear Abdomen: soft Genitourinary/Rectal: normal genital exam Edema: 1+ Leg (L), 1+ Leg (R) Edema: mild edema Neurologic: alert Ryan Bryant Jan 07, 2017 22:55
[2017-01-08] VITALS (7 sets, daily range): BP systolic 115–162; BP diastolic 55–90
[2017-01-08] MEDS: DuoNeb 0.5-3(2.5)mg/3ml neb HHN SCH ×4 (00:05→21:47)
[2017-01-08] MEDS: oxyCODONE 5mg IR tab ORAL PRN (01:14)
[2017-01-08] MEDS: oxyCONTIN 20mg tab ORAL SCH ×3 (04:27→20:34)
[2017-01-08] MEDS: NovoLOG Insulin Flexpen SUBQ SCH ×7 (06:02→20:25)
[2017-01-08] MEDS: HYDROmorphone 1mg/ml Carpuject IVP PRN ×3 (06:23→16:39)
--- NOTE | 2017-01-08 08:48 | General Progress Note ---
Assessment/Plan Assessment/Plan (1) H/o Lumbar surgery (2) Lumbar Radiculopathy (3) Lumbar Spondylosis (4) Lumbar DDD (5) Morbid Obesity (6) Cervical Radiculopathy (7) Cervical Spondylosis (8) Cervical DDD (9) H/o Cervical fusion The patient will be continued on OxyContin, oxycodone and Dilaudid. The patient was discussed with Dr. Serrano and Dr. Serrano concurred. Subjective Date patient seen: Jan 08, 2017 Time patient seen: 07:00 - am Allergies: Coded Allergies: ASPIRIN (Verified Allergy, Intermediate, 04/17/13) KETOROLAC (Verified Allergy, Intermediate, 04/17/13) PENICILLINS (Verified Allergy, Intermediate, 04/17/13) Subjective REVIEW OF SYSTEMS: Denies rash, fever, chills, sweating, dizziness, drowsiness, blurred vision, sore throat, and change in weight. No nausea, vomiting, diarrhea or blood in the stool or urine. No bowel or bladder incontinence. Denies shortness of breath, swelling in the lower extremities, neck and low back pain. SUBJECTIVE: Her pain has been stable on the medication. She says that the pain is worse with activities. Objective Last 24 Hour Vital Signs Date Time Temp Pulse Resp B/P Pulse Ox O2 Delivery O2 Flow Rate FiO2 01/08/17 08:00 98.2 88 20 148/80 97 Room Air 01/08/17 06:54 98.4 01/08/17 06:54 98.4 01/08/17 04:00 98.4 80 20 119/59 93 Room Air 01/08/17 00:07 21 01/08/17 00:07 80 18 9 Room Air 01/08/17 00:06 81 18 95 Room Air 01/08/17 00:00 98.4 81 19 115/55 93 Room Air 01/07/17 19:56 98.1 82 18 115/50 96 Room Air 01/07/17 19:50 21 01/07/17 19:50 81 18 95 Room Air 01/07/17 19:50 80 18 97 Room Air 01/07/17 19:50 Room Air 01/07/17 19:49 95 Room Air 01/07/17 18:05 85 156/86 01/07/17 16:00 98.2 85 19 156/86 93 Room Air 01/07/17 12:40 87 16 Room Air 21 01/07/17 12:32 83 16 96 Room Air 21 01/07/17 12:32 21 01/07/17 12:00 98.6 75 18 127/64 96 Room Air 01/07/17 09:07 84 150/58 Intake and Output 01/07/17 01/08/17 19:00 07:00 Intake Total 360 ml 590 ml Output Total 2400 ml Balance -2040 ml 590 ml Intake Oral 360 ml 590 ml Output Urine Total 2400 ml # Voids 6 Height (Feet): 5 Height (Inches): 6.00 Weight (Pounds): 325 Objective GENERAL: Alert, awake, and oriented x3. HEENT: PERRLA. NECK: Range of motion is decreased due to patients pain and condition tenderness in the paracervical muscles. No adenopathy. LUNGS: Decreased breath sounds bilaterally. HEART: S1, S2 regular. ABDOMEN: Obese. BACK: Range of motion is decreased in flexion and extension with tenderness in the paraspinal muscles. No tenderness to trapezius and rhomboid muscles. EXTREMITIES: No cyanosis. No clubbing with severe edema noted in bilateral lower extremities. NEURO: No changes. VERÓNICA VINCENT Jan 08, 2017 08:48
[2017-01-08] MEDS: Heparin 5000 units/ml inj SUBQ SCH ×2 (09:12→20:35)
[2017-01-08] MEDS: Lisinopril 10mg tab ORAL SCH (09:12)
--- NOTE | 2017-01-08 13:20 | General Progress Note ---
Assessment/Plan Problem List: (1) HTN (hypertension) ICD Codes: I10 - Essential (primary) hypertension SNOMED: 66079411 (2) Osteoarthritis (3) Acute exacerbation of congestive heart failure ICD Codes: I50.9 - Heart failure, unspecified SNOMED: 24094652 (4) Diabetes ICD Codes: E11.9 - Type 2 diabetes mellitus without complications SNOMED: 50615392 (5) Intractable pain ICD Codes: G89.29 - Other chronic pain SNOMED: 314889195 (6) Peripheral edema ICD Codes: R60.9 - Edema, unspecified SNOMED: 707494715 (7) Leukopenia ICD Codes: D72.819 - Decreased whiteblood cell count, unspecified SNOMED: 98010784 Status: stable, progressing, tolerating diet Assessment/Plan ot pt diet o2 pulm tx cbc bmp am dc to snf if clear by cardio pulm Subjective Constitutional: Reports: weakness Allergies: Coded Allergies: ASPIRIN (Verified Allergy, Intermediate, 04/17/13) KETOROLAC (Verified Allergy, Intermediate, 04/17/13) PENICILLINS (Verified Allergy, Intermediate, 04/17/13) All Systems: reviewed and negative except above Subjective sl agitated Objective Last 24 Hour Vital Signs Date Time Temp Pulse Resp B/P Pulse Ox O2 Delivery O2 Flow Rate FiO2 01/08/17 12:09 97.6 80 18 136/65 99 Room Air 01/08/17 12:05 85 18 98 Room Air 01/08/17 11:51 83 18 95 Room Air 01/08/17 11:51 21 01/08/17 10:56 98.2 01/08/17 09:12 148/80 01/08/17 09:12 88 148/80 01/08/17 08:00 98.2 88 20 148/80 97 Room Air 01/08/17 07:30 83 18 98 Room Air 01/08/17 07:20 83 18 95 Room Air 01/08/17 07:20 95 Room Air 01/08/17 07:20 Room Air 01/08/17 07:20 21 01/08/17 06:54 98.4 01/08/17 04:00 98.4 80 20 119/59 93 Room Air 01/08/17 00:07 01/08/17 00:07 80 18 9 Room Air 01/08/17 00:06 81 18 95 Room Air 21 01/08/17 00:00 98.4 81 19 115/55 93 Room Air 01/07/17 19:56 98.1 82 18 115/50 96 Room Air 01/07/17 19:50 21 01/07/17 19:50 81 18 95 Room Air 21 01/07/17 19:50 80 18 97 Room Air 21 01/07/17 19:50 Room Air 01/07/17 19:49 95 Room Air 21 01/07/17 18:05 85 156/86 01/07/17 16:00 98.2 85 19 156/86 93 Room Air Intake and Output 01/07/17 01/08/17 19:00 07:00 Intake Total 360 ml 590 ml Output Total 2400 ml Balance -2040 ml 590 ml Intake Oral 360 ml 590 ml Output Urine Total 2400 ml # Voids 6 Height (Feet): 5 Height (Inches): 6.00 Weight (Pounds): 325 General Appearance: confused EENT: normal ENT inspection Neck: normal alignment Cardiovascular: normal peripheral pulses, normal rate, regular rhythm Respiratory/Chest: chest wall non-tender, lungs clear, normal breath sounds Abdomen: normal bowel sounds, non tender, soft Extremities: normal inspection Edema: 1+ Arm (L), 1+ Arm (R), 1+ Leg (L), 1+ Leg (R), 1+ Pedal (L), 1+ Pedal ( R), 1+ Generalized Edema: trace edema Neurologic: responsive, motor weakness Skin: normal pigmentation, warm/dry GISELLA MARCANO Jan 08, 2017 13:20
--- NOTE | 2017-01-08 15:03 | Pulmonology Progress Note ---
Assessment/Plan Problems: (1) Peripheral edema (2) Diabetes (3) Intractable pain Assessment/Plan no new complains improving check electrolytes continue current meds all notes, meds and labs reviewed pt/ot dc planning in progress Subjective ROS Limited/Unobtainable: No HEENT: Repors: no symptoms Respiratory: Reports: no symptoms Allergies: Coded Allergies: ASPIRIN (Verified Allergy, Intermediate, 04/17/13) KETOROLAC (Verified Allergy, Intermediate, 04/17/13) PENICILLINS (Verified Allergy, Intermediate, 04/17/13) Objective Last 24 Hour Vital Signs Date Time Temp Pulse Resp B/P Pulse Ox O2 Delivery O2 Flow Rate FiO2 01/08/17 12:09 97.6 80 18 136/65 99 Room Air 01/08/17 12:05 85 18 98 Room Air 01/08/17 11:51 83 18 95 Room Air 01/08/17 11:51 21 01/08/17 10:56 98.2 01/08/17 09:12 148/80 01/08/17 09:12 88 148/80 01/08/17 08:00 98.2 88 20 148/80 97 Room Air 01/08/17 07:30 83 18 98 Room Air 01/08/17 07:20 83 18 95 Room Air 01/08/17 07:20 95 Room Air 01/08/17 07:20 Room Air 01/08/17 07:20 21 01/08/17 06:54 98.4 01/08/17 04:00 98.4 80 20 119/59 93 Room Air 01/08/17 00:07 21 01/08/17 00:07 80 18 9 Room Air 01/08/17 00:06 81 18 95 Room Air 01/08/17 00:00 98.4 81 19 115/55 93 Room Air 01/07/17 19:56 98.1 82 18 115/50 96 Room Air 01/07/17 19:50 21 01/07/17 19:50 81 18 95 Room Air 01/07/17 19:50 80 18 97 Room Air 01/07/17 19:50 Room Air 01/07/17 19:49 95 Room Air 21 01/07/17 18:05 85 156/86 01/07/17 16:00 98.2 85 19 156/86 93 Room Air Intake and Output 01/07/17 01/08/17 18:59 06:59 Intake Total 360 ml 590 ml Output Total 2400 ml Balance -2040 ml 590 ml Intake Oral 360 ml 590 ml Output Urine Total 2400 ml # Voids 6 General Appearance: WD/WN HEENT: normocephalic, atraumatic Respiratory/Chest: chest wall non-tender, lungs clear Breasts: no masses Cardiovascular: normal peripheral pulses, no JVD Abdomen: no organomegaly Genitourinary: normal external genitalia Extremities: no cyanosis Skin: no rash 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5-3(2.5)mg/3ml) 3 ml Q6HRT HHN 01/06/17 01:00 01/11/17 00:59 01/08/17 11:51 Amlodipine Besylate (Norvasc) 5 mg BID ORAL 01/06/17 09:00 02/05/17 08:59 01/08/17 09:12 Carisoprodol (Soma) 350 mg Q8HR ORAL 01/06/17 06:00 02/05/17 05:59 01/08/17 06:16 Clonidine HCl (Catapres) 0.1 mg Q6H PRN ORAL For High Blood Pressure 01/06/17 01:45 02/05/17 01:44 Dextrose (Dextrose 50%) STAT PRN IV Hypoglycemia 01/06/17 03:45 02/05/17 03:44 Diphenhydramine HCl (Benadryl) 50 mg Q6H PRN ORAL Itching 01/07/17 11:15 02/06/17 11:14 01/08/17 10:26 Duloxetine HCl (Cymbalta) 20 mg DAILY ORAL 01/06/17 09:00 02/05/17 08:59 01/08/17 09:12 Furosemide (Lasix) 40 mg EVERY 8 HOURS IV 01/06/17 06:00 02/05/17 05:59 01/08/17 14:30 Heparin Sodium (Porcine) (Heparin 5000 units/ml) 5,000 units EVERY 12 HOURS SUBQ 01/06/17 09:00 02/05/17 08:59 01/08/17 09:12 Hydromorphone HCl (Dilaudid) 1 mg Q4H PRN IVP Severe Pain (Pain Scale 7-10) 01/05/17 23:45 01/12/17 23:44 01/08/17 10:26 Insulin Aspart (NovoLOG) BEFORE MEALS AND HS SUBQ 01/06/17 06:30 02/05/17 06:29 01/08/17 11:34 Insulin Aspart (NovoLOG) 8 units NOVOTIAC SUBQ 01/06/17 06:30 02/05/17 06:29 01/08/17 11:36 Insulin Detemir (Levemir) 35 units BEDTIME SUBQ 01/06/17 21:00 02/05/17 20:59 01/07/17 20:42 Lisinopril (Zestril) 10 mg DAILY ORAL 01/06/17 09:00 02/05/17 08:59 01/08/17 09:12 Ondansetron HCl (Zofran) 4 mg Q6H PRN IVP Nausea & Vomiting 01/05/17 22:30 02/04/17 22:29 Oxycodone HCl (OxyCONTIN) 20 mg Q8H ORAL 01/06/17 04:30 01/13/17 04:29 01/08/17 12:36 Oxycodone HCl (Roxicodone) 10 mg Q6H PRN ORAL Moderate Breakthru Pain (5-7) 01/06/17 03:45 01/13/17 03:44 01/08/17 01:14 Pantoprazole (Protonix) 40 mg EVERY 12 HOURS ORAL 01/06/17 21:00 02/05/17 20:59 01/08/17 09:12 Polyethylene Glycol (Miralax) 17 gm DAILYPRN PRN ORAL Constipation 01/06/17 03:45 02/05/17 03:44 01/07/17 00:33 Promethazine HCl/ Codeine (Phenergan with Codeine) 5 ml Q4H PRN ORAL For Cough 01/06/17 01:45 02/05/17 01:44 Sucralfate (Carafate) 1 gm Q4H PRN ORAL Abdominal cramps 01/06/17 15:00 02/05/17 14:59 Temazepam (Restoril) 15 mg HSPRN PRN ORAL Insomnia 01/06/17 21:00 01/13/17 20:59 LLUVIA JENKINS Jan 08, 2017 15:03
--- NOTE | 2017-01-08 20:02 | General Progress Note ---
Assessment/Plan Assessment/Plan 1. Leukopenia secondary to underlying infection. Congenital neutropenia. --> anc remains >1000 --> viral studies are negative --> us of the abdomen still pending results 2. Anemia due to chronic disease, is normocytic. 3. Monocytosis, has resolved. 4. Elevation of D-dimer, likely secondary to reactive process. 5. Alkaline phosphatase elevated. 6. Malnutrition, low albumin. 7. Cardiomegaly noted. 8. Discussed with staff. Subjective Constitutional: Reports: no symptoms HEENT: Reports: no symptoms Cardiovascular: Reports: no symptoms Respiratory: Reports: no symptoms Gastrointestinal/Abdominal: Reports: no symptoms Genitourinary: Reports: no symptoms Neurologic/Psychiatric: Reports: no symptoms Endocrine: Reports: no symptoms Hematologic/Lymphatic: Reports: anemia Allergies: Coded Allergies: ASPIRIN (Verified Allergy, Intermediate, 04/17/13) KETOROLAC (Verified Allergy, Intermediate, 04/17/13) PENICILLINS (Verified Allergy, Intermediate, 04/17/13) Subjective no complaints, not bleeding, refusing certain meds, wbc is stable Objective Last 24 Hour Vital Signs Date Time Temp Pulse Resp B/P Pulse Ox O2 Delivery O2 Flow Rate FiO2 01/08/17 19:37 98.1 80 20 151/74 98 Room Air 01/08/17 17:33 78 139/70 01/08/17 17:09 97.6 01/08/17 15:58 97.6 78 20 139/70 94 Room Air 01/08/17 12:09 97.6 80 18 136/65 99 Room Air 01/08/17 12:05 85 18 98 Room Air 01/08/17 11:51 83 18 95 Room Air 01/08/17 11:51 21 01/08/17 09:12 148/80 01/08/17 09:12 88 148/80 01/08/17 08:00 98.2 88 20 148/80 97 Room Air 01/08/17 07:30 83 18 98 Room Air 01/08/17 07:20 83 18 95 Room Air 01/08/17 07:20 95 Room Air 01/08/17 07:20 Room Air 01/08/17 07:20 21 01/08/17 06:54 98.4 01/08/17 04:00 98.4 80 20 119/59 93 Room Air 01/08/17 00:07 21 01/08/17 00:07 80 18 9 Room Air 21 01/08/17 00:06 81 18 95 Room Air 21 01/08/17 00:00 98.4 81 19 115/55 93 Room Air Intake and Output 01/07/17 01/08/17 19:00 07:00 Intake Total 360 ml 590 ml Output Total 2400 ml Balance -2040 ml 590 ml Intake Oral 360 ml 590 ml Output Urine Total 2400 ml # Voids 6 Height (Feet): 5 Height (Inches): 6.00 Weight (Pounds): 325 General Appearance: no apparent distress EENT: TMs normal Neck: supple Cardiovascular: regular rhythm Respiratory/Chest: lungs clear Abdomen: soft Extremities: normal inspection Neurologic: alert Skin: warm/dry Ryan Bryant Jan 08, 2017 20:01
--- NOTE | 2017-01-08 20:14 | General Progress Note ---
Assessment/Plan Status: doing well, stable, progressing Assessment/Plan opioid dependence, mdd the pt reluctant to take psych meds Subjective Constitutional: Reports: malaise, weakness Allergies: Coded Allergies: ASPIRIN (Verified Allergy, Intermediate, 04/17/13) KETOROLAC (Verified Allergy, Intermediate, 04/17/13) PENICILLINS (Verified Allergy, Intermediate, 04/17/13) Subjective the pt c/o chest pain. the pt had multiple complaints. Objective Last 24 Hour Vital Signs Date Time Temp Pulse Resp B/P Pulse Ox O2 Delivery O2 Flow Rate FiO2 01/08/17 19:37 98.1 80 20 151/74 98 Room Air 01/08/17 17:33 78 139/70 01/08/17 17:09 97.6 01/08/17 15:58 97.6 78 20 139/70 94 Room Air 01/08/17 12:09 97.6 80 18 136/65 99 Room Air 01/08/17 12:05 85 18 98 Room Air 01/08/17 11:51 83 18 95 Room Air 01/08/17 11:51 21 01/08/17 09:12 148/80 01/08/17 09:12 88 148/80 01/08/17 08:00 98.2 88 20 148/80 97 Room Air 01/08/17 07:30 83 18 98 Room Air 01/08/17 07:20 83 18 95 Room Air 01/08/17 07:20 95 Room Air 01/08/17 07:20 Room Air 01/08/17 07:20 21 01/08/17 06:54 98.4 01/08/17 04:00 98.4 80 20 119/59 93 Room Air 01/08/17 00:07 21 01/08/17 00:07 80 18 9 Room Air 01/08/17 00:06 81 18 95 Room Air 01/08/17 00:00 98.4 81 19 115/55 93 Room Air Intake and Output 01/07/17 01/08/17 19:00 07:00 Intake Total 360 ml 590 ml Output Total 2400 ml Balance -2040 ml 590 ml Intake Oral 360 ml 590 ml Output Urine Total 2400 ml # Voids 6 Height (Feet): 5 Height (Inches): 6.00 Weight (Pounds): 325 General Appearance: no apparent distress, alert, morbidly obese Neurologic: alert, oriented x 3, responsive, depressed affect Fabienne Zhang M.D. Jan 08, 2017 20:14
[2017-01-08] MEDS: Levemir Flexpen SUBQ SCH (20:24)
[2017-01-09] MEDS: HYDROmorphone 1mg/ml Carpuject IVP PRN ×2 (00:21→06:00)
[2017-01-09] MEDS: DuoNeb 0.5-3(2.5)mg/3ml neb HHN SCH ×4 (01:48→19:00)
[2017-01-09 03:49] VITALS: BP 151/73
[2017-01-09] MEDS: oxyCONTIN 20mg tab ORAL SCH ×3 (04:53→20:39)
[2017-01-09] MEDS: NovoLOG Insulin Flexpen SUBQ SCH ×7 (05:51→20:42)
--- NOTE | 2017-01-09 06:30 | General Progress Note ---
Assessment/Plan Problem List: (1) Diabetes ICD Codes: E11.9 - Type 2 diabetes mellitus without complications SNOMED: 79986477 (2) Intractable pain ICD Codes: G89.29 - Other chronic pain SNOMED: 247926879 (3) Osteopenia (4) HTN (hypertension) ICD Codes: I10 - Essential (primary) hypertension SNOMED: 77059569 (5) Osteoarthritis Assessment/Plan continue Levemir to 35 units qhs continue Novolog 8 units ac tid + SSI Subjective Allergies: Coded Allergies: ASPIRIN (Verified Allergy, Intermediate, 04/17/13) KETOROLAC (Verified Allergy, Intermediate, 04/17/13) PENICILLINS (Verified Allergy, Intermediate, 04/17/13) All Systems: reviewed and negative except above Subjective events noted Objective Last 24 Hour Vital Signs Date Time Temp Pulse Resp B/P Pulse Ox O2 Delivery O2 Flow Rate FiO2 01/09/17 03:49 99.0 89 15 151/73 92 Room Air 01/09/17 01:49 71 20 96 Room Air 01/09/17 01:48 70 20 94 Room Air 01/09/17 00:51 97.3 01/08/17 23:14 97.3 78 20 162/90 93 Room Air 01/08/17 21:33 98.1 01/08/17 19:40 78 20 97 Room Air 01/08/17 19:37 98.1 80 20 151/74 98 Room Air 01/08/17 19:30 Room Air 01/08/17 19:30 74 20 95 Room Air 01/08/17 19:30 95 Room Air 01/08/17 17:33 78 139/70 01/08/17 15:58 97.6 78 20 139/70 94 Room Air 01/08/17 12:09 97.6 80 18 136/65 99 Room Air 01/08/17 12:05 85 18 98 Room Air 01/08/17 11:51 83 18 95 Room Air 01/08/17 11:51 21 01/08/17 09:12 148/80 01/08/17 09:12 88 148/80 01/08/17 08:00 98.2 88 20 148/80 97 Room Air 01/08/17 07:30 83 18 98 Room Air 01/08/17 07:20 83 18 95 Room Air 01/08/17 07:20 95 Room Air 21 01/08/17 07:20 Room Air 01/08/17 07:20 21 Intake and Output 01/08/17 01/09/17 19:00 07:00 Intake Total 840 ml Balance 840 ml Intake Oral 840 ml # Voids 3 2 # Bowel Movements 1 Height (Feet): 5 Height (Inches): 6.00 Weight (Pounds): 325 General Appearance: no apparent distress EENT: PERRL/EOMI Neck: normal alignment Cardiovascular: normal rate Respiratory/Chest: chest wall non-tender Abdomen: normal bowel sounds Pelvis: normal external exam Edema: no edema noted Arm (L), no edema noted Arm (R), no edema noted Leg (L), no edema noted Leg (R), no edema noted Pedal (L), no edema noted Pedal (R), no edema noted Generalized Objective Current Medications Medications (Trade) Dose Ordered Sig/Evelia Route PRN Reason Start Time Stop Time Status Last Admin Dose Admin Acetaminophen (Tylenol) 650 mg Q4H PRN ORAL Fever 01/05/17 23:45 02/04/17 23:44 01/06/17 15:38 Albuterol/ Ipratropium (DuoNeb 0.5-3(2.5)mg/3ml) 3 ml Q4H PRN HHN Shortness of Breath 01/05/17 23:45 01/10/17 23:44 Albuterol/ Ipratropium (DuoNeb 0.5-3(2.5)mg/3ml) 3 ml Q6HRT HHN 01/06/17 01:00 01/11/17 00:59 01/09/17 01:48 Amlodipine Besylate (Norvasc) 5 mg BID ORAL 01/06/17 09:00 02/05/17 08:59 01/08/17 17:33 Carisoprodol (Soma) 350 mg Q8HR ORAL 01/06/17 06:00 02/05/17 05:59 01/09/17 06:00 Clonidine HCl (Catapres) 0.1 mg Q6H PRN ORAL For High Blood Pressure 01/06/17 01:45 02/05/17 01:44 Dextrose (Dextrose 50%) STAT PRN IV Hypoglycemia 01/06/17 03:45 02/05/17 03:44 Diphenhydramine HCl (Benadryl) 50 mg Q6H PRN ORAL Itching 01/07/17 11:15 02/06/17 11:14 01/09/17 00:21 Duloxetine HCl (Cymbalta) 20 mg DAILY ORAL 01/06/17 09:00 02/05/17 08:59 01/08/17 09:12 Furosemide (Lasix) 40 mg EVERY 8 HOURS IV 01/06/17 06:00 02/05/17 05:59 01/08/17 14:30 Heparin Sodium (Porcine) (Heparin 5000 units/ml) 5,000 units EVERY 12 HOURS SUBQ 01/06/17 09:00 02/05/17 08:59 01/08/17 20:35 Hydromorphone HCl (Dilaudid) 1 mg Q4H PRN IVP Severe Pain (Pain Scale 7-10) 01/05/17 23:45 01/12/17 23:44 01/09/17 06:00 Insulin Aspart (NovoLOG) BEFORE MEALS AND HS SUBQ 01/06/17 06:30 02/05/17 06:29 01/08/17 16:40 Insulin Aspart (NovoLOG) 8 units NOVOTIAC SUBQ 01/06/17 06:30 02/05/17 06:29 01/08/17 16:40 Insulin Detemir (Levemir) 35 units BEDTIME SUBQ 01/06/17 21:00 02/05/17 20:59 01/07/17 20:42 Lisinopril (Zestril) 10 mg DAILY ORAL 01/06/17 09:00 02/05/17 08:59 01/08/17 09:12 Ondansetron HCl (Zofran) 4 mg Q6H PRN IVP Nausea & Vomiting 01/05/17 22:30 02/04/17 22:29 Oxycodone HCl (OxyCONTIN) 20 mg Q8H ORAL 01/06/17 04:30 01/13/17 04:29 01/09/17 04:53 Oxycodone HCl (Roxicodone) 10 mg Q6H PRN ORAL Moderate Breakthru Pain (5-7) 01/06/17 03:45 01/13/17 03:44 01/08/17 01:14 Pantoprazole (Protonix) 40 mg EVERY 12 HOURS ORAL 01/06/17 21:00 02/05/17 20:59 01/08/17 20:34 Polyethylene Glycol (Miralax) 17 gm DAILYPRN PRN ORAL Constipation 01/06/17 03:45 02/05/17 03:44 01/07/17 00:33 Promethazine HCl/ Codeine (Phenergan with Codeine) 5 ml Q4H PRN ORAL For Cough 01/06/17 01:45 02/05/17 01:44 Sucralfate (Carafate) 1 gm Q4H PRN ORAL Abdominal cramps 01/06/17 15:00 02/05/17 14:59 Temazepam (Restoril) 15 mg HSPRN PRN ORAL Insomnia 01/06/17 21:00 01/13/17 20:59 Item Value Date Time Bedside Blood Glucose 196 mg/dl H 01/09/17 0552 Bedside Blood Glucose 123 mg/dl H 01/08/17 2100 Bedside Blood Glucose 139 mg/dl H 01/08/17 1640 Bedside Blood Glucose 111 mg/dl 01/08/17 1136 Bedside Blood Glucose 155 mg/dl H 01/08/17 0607 SUMA ZARCO Jan 09, 2017 06:30
[2017-01-09 07:08] LABS: ANION GAP 8 (5-15); CALCIUM 8.8 mg/dL (8.6-10.2); CARBON DIOXIDE 29 mEQ/L (20-30); CHLORIDE 101 mEQ/L (98-107); CREATININE 0.8 mg/dL (0.5-0.9); GLOMERULAR FILTRATION RATE > 60 mL/min (>60); HEMOLYSIS 29; POTASSIUM 4.6 mEQ/L (3.4-4.9); SODIUM 138 mEQ/L (135-145)
[2017-01-09 07:15] LABS: MEAN CORPUSCULAR HEMOGLOBIN 27.7 PG (27.0-31.0); MEAN CORPUSCULAR HGB CONC 31.4 G/DL (32.0-36.0); MEAN CORPUSCULAR VOLUME 88 FL (80-99); MEAN PLATELET VOLUME 6.9 FL (6.5-10.1); PLATELET COUNT 163 K/UL (150-450); RED BLOOD COUNT 3.94 M/UL (4.20-5.40); RED CELL DISTRIBUTION WIDTH 13.4 % (11.6-14.8); WHITE BLOOD COUNT 2.4 K/UL (4.8-10.8)
[2017-01-09 08:18] VITALS: BP 156/74
[2017-01-09] MEDS: Heparin 5000 units/ml inj SUBQ SCH ×2 (08:39→20:41)
[2017-01-09] MEDS: Lisinopril 10mg tab ORAL SCH (08:41)
[2017-01-09 08:56] LABS: ANISOCYTOSIS 1+; BAND NEUTROPHILS % (MANUAL) 0 % (0-8); BASOPHILS % (MANUAL) 1 % (0-2); EOSINOPHILS % (MANUAL) 2 % (0-3); HYPOCHROMASIA 1+; LYMPHOCYTES % (MANUAL) 35 % (20-45); NEUTROPHILS % (MANUAL) 44 % (45-75); PLATELET ESTIMATE ADEQUATE; PLATELET MORPHOLOGY NORMAL; TOTAL CELLS COUNTED 100
--- NOTE | 2017-01-09 09:03 | General Progress Note ---
Assessment/Plan Assessment/Plan (1) H/o Lumbar surgery (2) Lumbar Radiculopathy (3) Lumbar Spondylosis (4) Lumbar DDD (5) Morbid Obesity (6) Cervical Radiculopathy (7) Cervical Spondylosis (8) Cervical DDD (9) H/o Cervical fusion The patient will be continued on OxyContin, oxycodone and Dilaudid. The patient was discussed with Dr. Serrano and Dr. Serrano concurred. Subjective Date patient seen: Jan 09, 2017 Time patient seen: 06:45 - am Allergies: Coded Allergies: ASPIRIN (Verified Allergy, Intermediate, 04/17/13) KETOROLAC (Verified Allergy, Intermediate, 04/17/13) PENICILLINS (Verified Allergy, Intermediate, 04/17/13) Subjective REVIEW OF SYSTEMS: Denies rash, fever, chills, sweating, dizziness, drowsiness, blurred vision, sore throat, and change in weight. No nausea, vomiting, diarrhea or blood in the stool or urine. No bowel or bladder incontinence. Denies shortness of breath, swelling in the lower extremities, neck and low back pain. SUBJECTIVE: The pain has been unchanged and tolerated well on the medications. Receiving the OxyContin as scheduled and Oxycodone and Dilaudid as needed. Objective Last 24 Hour Vital Signs Date Time Temp Pulse Resp B/P Pulse Ox O2 Delivery O2 Flow Rate FiO2 01/09/17 08:18 97.7 77 18 156/74 96 Room Air 01/09/17 07:59 78 20 96 Room Air 01/09/17 07:56 Room Air 01/09/17 07:50 78 18 93 Room Air 01/09/17 07:49 93 Room Air 01/09/17 06:30 99.0 01/09/17 06:30 99.0 01/09/17 03:49 99.0 89 15 151/73 92 Room Air 01/09/17 01:49 71 20 96 Room Air 01/09/17 01:48 70 20 94 Room Air 01/08/17 23:14 97.3 78 20 162/90 93 Room Air 01/08/17 19:40 78 20 97 Room Air 01/08/17 19:37 98.1 80 20 151/74 98 Room Air 01/08/17 19:30 Room Air 01/08/17 19:30 74 20 95 Room Air 21 01/08/17 19:30 95 Room Air 21 01/08/17 17:33 78 139/70 01/08/17 15:58 97.6 78 20 139/70 94 Room Air 01/08/17 12:09 97.6 80 18 136/65 99 Room Air 01/08/17 12:05 85 18 98 Room Air 21 01/08/17 11:51 83 18 95 Room Air 21 01/08/17 11:51 21 01/08/17 09:12 148/80 01/08/17 09:12 88 148/80 Intake and Output 01/08/17 01/09/17 19:00 07:00 Intake Total 840 ml Balance 840 ml Intake Oral 840 ml # Voids 3 2 # Bowel Movements 1 Laboratory Tests 01/09/17 06:20: White Blood Count 2.4L, Red Blood Count 3.94L, Hemoglobin 10.9L, Hematocrit 34.7L, Mean Corpuscular Volume 88, Mean Corpuscular Hemoglobin 27.7, Mean Corpuscular Hemoglobin Concent 31.4L, Red Cell Distribution Width 13.4, Platelet Count 163, Mean Platelet Volume 6.9, Neutrophils (%) (Auto) , Lymphocytes (%) (Auto) , Monocytes (%) (Auto) , Eosinophils (%) (Auto) , Basophils (%) (Auto) , Differential Total Cells Counted 100, Neutrophils % ( Manual) 44L, Lymphocytes % (Manual) 35, Monocytes % (Manual) 18H, Eosinophils % (Manual) 2, Basophils % (Manual) 1, Band Neutrophils 0, Platelet Estimate Adequate, Platelet Morphology Normal, Hypochromasia 1+, Anisocytosis 1+, Sodium Level 138, Potassium Level 4.6, Chloride Level 101, Carbon Dioxide Level 29, Anion Gap 8, Blood Urea Nitrogen 21, Creatinine 0.8, Estimat Glomerular Filtration Rate > 60, Glucose Level 220H, Calcium Level 8.8 Height (Feet): 5 Height (Inches): 6.00 Weight (Pounds): 325 Objective GENERAL: Alert, awake, and oriented x3. HEENT: PERRLA. NECK: Range of motion is decreased due to patients pain and condition tenderness in the paracervical muscles. No adenopathy. LUNGS: Decreased breath sounds bilaterally. HEART: S1, S2 regular. ABDOMEN: Obese. BACK: Range of motion is decreased in flexion and extension with tenderness in the paraspinal muscles. No tenderness to trapezius and rhomboid muscles. EXTREMITIES: No cyanosis. No clubbing with severe edema noted in bilateral lower extremities. NEURO: No changes. VERÓNICA VINCENT Jan 09, 2017 09:03
[2017-01-09] MEDS: HYDROmorphone 1mg/ml Carpuject SUBQ PRN ×3 (11:10→20:39)
[2017-01-09 12:00] VITALS: BP 176/72
[2017-01-09 13:27] VITALS: BP 144/95
--- NOTE | 2017-01-09 14:27 | General Progress Note ---
Assessment/Plan Problem List: (1) HTN (hypertension) ICD Codes: I10 - Essential (primary) hypertension SNOMED: 65641000 (2) Osteoarthritis (3) Acute exacerbation of congestive heart failure ICD Codes: I50.9 - Heart failure, unspecified SNOMED: 71165507 (4) Diabetes ICD Codes: E11.9 - Type 2 diabetes mellitus without complications SNOMED: 82035119 (5) Intractable pain ICD Codes: G89.29 - Other chronic pain SNOMED: 522889835 (6) Peripheral edema ICD Codes: R60.9 - Edema, unspecified SNOMED: 193785338 (7) Leukopenia ICD Codes: D72.819 - Decreased whiteblood cell count, unspecified SNOMED: 12671228 Status: stable, progressing, tolerating diet Assessment/Plan ot pt diet o2 pulm tx cbc bmp am dc to snf if clear by cardio pulm Subjective Constitutional: Reports: weakness Allergies: Coded Allergies: ASPIRIN (Verified Allergy, Intermediate, 04/17/13) KETOROLAC (Verified Allergy, Intermediate, 04/17/13) PENICILLINS (Verified Allergy, Intermediate, 04/17/13) All Systems: reviewed and negative except above Subjective sl agitated Objective Last 24 Hour Vital Signs Date Time Temp Pulse Resp B/P Pulse Ox O2 Delivery O2 Flow Rate FiO2 01/09/17 13:58 89 18 98 Room Air 01/09/17 13:48 Venturi Mask 01/09/17 13:45 82 16 97 Room Air 01/09/17 13:27 97.5 89 18 144/95 96 Room Air 01/09/17 11:40 97.7 01/09/17 09:59 77 156/74 01/09/17 08:18 97.7 77 18 156/74 96 Room Air 01/09/17 07:59 78 20 96 Room Air 01/09/17 07:56 Room Air 01/09/17 07:50 78 18 93 Room Air 21 01/09/17 07:49 93 Room Air 01/09/17 06:30 99.0 01/09/17 06:30 99.0 01/09/17 03:49 99.0 89 15 151/73 92 Room Air 01/09/17 01:49 71 20 96 Room Air 21 01/09/17 01:48 70 20 94 Room Air 01/08/17 23:14 97.3 78 20 162/90 93 Room Air 01/08/17 19:40 78 20 97 Room Air 21 01/08/17 19:37 98.1 80 20 151/74 98 Room Air 01/08/17 19:30 Room Air 21 01/08/17 19:30 74 20 95 Room Air 21 01/08/17 19:30 95 Room Air 21 01/08/17 17:33 78 139/70 01/08/17 15:58 97.6 78 20 139/70 94 Room Air Intake and Output 01/08/17 01/09/17 19:00 07:00 Intake Total 840 ml Balance 840 ml Intake Oral 840 ml # Voids 3 2 # Bowel Movements 1 Laboratory Tests 01/09/17 06:20: White Blood Count 2.4L, Red Blood Count 3.94L, Hemoglobin 10.9L, Hematocrit 34.7L, Mean Corpuscular Volume 88, Mean Corpuscular Hemoglobin 27.7, Mean Corpuscular Hemoglobin Concent 31.4L, Red Cell Distribution Width 13.4, Platelet Count 163, Mean Platelet Volume 6.9, Neutrophils (%) (Auto) , Lymphocytes (%) (Auto) , Monocytes (%) (Auto) , Eosinophils (%) (Auto) , Basophils (%) (Auto) , Differential Total Cells Counted 100, Neutrophils % ( Manual) 44L, Lymphocytes % (Manual) 35, Monocytes % (Manual) 18H, Eosinophils % (Manual) 2, Basophils % (Manual) 1, Band Neutrophils 0, Platelet Estimate Adequate, Platelet Morphology Normal, Hypochromasia 1+, Anisocytosis 1+, Sodium Level 138, Potassium Level 4.6, Chloride Level 101, Carbon Dioxide Level 29, Anion Gap 8, Blood Urea Nitrogen 21, Creatinine 0.8, Estimat Glomerular Filtration Rate > 60, Glucose Level 220H, Calcium Level 8.8 Height (Feet): 5 Height (Inches): 6.00 Weight (Pounds): 325 General Appearance: lethargic EENT: normal ENT inspection Neck: normal alignment Cardiovascular: normal peripheral pulses, normal rate, regular rhythm Respiratory/Chest: chest wall non-tender, lungs clear, normal breath sounds Abdomen: normal bowel sounds, non tender, soft Extremities: normal inspection Edema: no edema noted Arm (L), no edema noted Arm (R), no edema noted Leg (L), no edema noted Leg (R), no edema noted Pedal (L), no edema noted Pedal (R), no edema noted Generalized Neurologic: responsive, motor weakness Skin: normal pigmentation, warm/dry GISELLA MARCANO Jan 09, 2017 14:27
[2017-01-09 16:29] VITALS: BP 159/69
--- NOTE | 2017-01-09 16:35 | General Progress Note ---
Assessment/Plan Assessment/Plan 1. Leukopenia secondary to underlying infection. Congenital neutropenia. --> anc remains >1000 --> viral studies are negative --> us of the abdomen still pending results, she refused today 2. Anemia due to chronic disease, is normocytic. 3. Monocytosis, has resolved. 4. Elevation of D-dimer, likely secondary to reactive process. 5. Alkaline phosphatase elevated. 6. Malnutrition, low albumin. 7. Cardiomegaly noted. 8. Discussed with staff. Subjective Constitutional: Reports: no symptoms HEENT: Reports: no symptoms Cardiovascular: Reports: no symptoms Respiratory: Reports: no symptoms Gastrointestinal/Abdominal: Reports: no symptoms Genitourinary: Reports: no symptoms Neurologic/Psychiatric: Reports: no symptoms Endocrine: Reports: no symptoms Hematologic/Lymphatic: Reports: no symptoms Allergies: Coded Allergies: ASPIRIN (Verified Allergy, Intermediate, 04/17/13) KETOROLAC (Verified Allergy, Intermediate, 04/17/13) PENICILLINS (Verified Allergy, Intermediate, 04/17/13) Subjective refusing US, noncompliant with npo order Objective Last 24 Hour Vital Signs Date Time Temp Pulse Resp B/P Pulse Ox O2 Delivery O2 Flow Rate FiO2 01/09/17 16:29 97.9 83 19 159/69 96 Room Air 01/09/17 15:40 97.5 01/09/17 15:40 97.5 01/09/17 13:58 89 18 98 Room Air 01/09/17 13:48 Venturi Mask 01/09/17 13:45 82 16 97 Room Air 01/09/17 13:27 97.5 89 18 144/95 96 Room Air 01/09/17 12:00 98.2 83 18 176/72 97 Room Air 01/09/17 09:59 77 156/74 01/09/17 08:18 97.7 77 18 156/74 96 Room Air 01/09/17 07:59 78 20 96 Room Air 01/09/17 07:56 Room Air 01/09/17 07:50 78 18 93 Room Air 01/09/17 07:49 93 Room Air 01/09/17 06:30 99.0 01/09/17 03:49 99.0 89 15 151/73 92 Room Air 01/09/17 01:49 71 20 96 Room Air 01/09/17 01:48 70 20 94 Room Air 21 01/08/17 23:14 97.3 78 20 162/90 93 Room Air 01/08/17 19:40 78 20 97 Room Air 21 01/08/17 19:37 98.1 80 20 151/74 98 Room Air 01/08/17 19:30 Room Air 21 01/08/17 19:30 74 20 95 Room Air 21 01/08/17 19:30 95 Room Air 01/08/17 17:33 78 139/70 Intake and Output 01/08/17 01/09/17 19:00 07:00 Intake Total 840 ml Balance 840 ml Intake Oral 840 ml # Voids 3 2 # Bowel Movements 1 Laboratory Tests 01/09/17 06:20: White Blood Count 2.4L, Red Blood Count 3.94L, Hemoglobin 10.9L, Hematocrit 34.7L, Mean Corpuscular Volume 88, Mean Corpuscular Hemoglobin 27.7, Mean Corpuscular Hemoglobin Concent 31.4L, Red Cell Distribution Width 13.4, Platelet Count 163, Mean Platelet Volume 6.9, Neutrophils (%) (Auto) , Lymphocytes (%) (Auto) , Monocytes (%) (Auto) , Eosinophils (%) (Auto) , Basophils (%) (Auto) , Differential Total Cells Counted 100, Neutrophils % ( Manual) 44L, Lymphocytes % (Manual) 35, Monocytes % (Manual) 18H, Eosinophils % (Manual) 2, Basophils % (Manual) 1, Band Neutrophils 0, Platelet Estimate Adequate, Platelet Morphology Normal, Hypochromasia 1+, Anisocytosis 1+, Sodium Level 138, Potassium Level 4.6, Chloride Level 101, Carbon Dioxide Level 29, Anion Gap 8, Blood Urea Nitrogen 21, Creatinine 0.8, Estimat Glomerular Filtration Rate > 60, Glucose Level 220H, Calcium Level 8.8 Height (Feet): 5 Height (Inches): 6.00 Weight (Pounds): 325 General Appearance: no apparent distress EENT: normal ENT inspection Neck: normal alignment Cardiovascular: regular rhythm Respiratory/Chest: chest wall non-tender Abdomen: normal bowel sounds Edema: no edema noted Pedal (L), no edema noted Pedal (R) Skin: warm/dry Ryan Bryant Jan 09, 2017 16:35
--- NOTE | 2017-01-09 18:08 | General Progress Note ---
Assessment/Plan Status: stable Assessment/Plan opioid dependence, mdd the pt reluctant to take psych meds Subjective Allergies: Coded Allergies: ASPIRIN (Verified Allergy, Intermediate, 04/17/13) KETOROLAC (Verified Allergy, Intermediate, 04/17/13) PENICILLINS (Verified Allergy, Intermediate, 04/17/13) Subjective the pt c/o chest pain. the pt had multiple complaints. Objective Last 24 Hour Vital Signs Date Time Temp Pulse Resp B/P Pulse Ox O2 Delivery O2 Flow Rate FiO2 01/09/17 17:05 83 159/69 01/09/17 16:29 97.9 83 19 159/69 96 Room Air 01/09/17 15:40 97.5 01/09/17 15:40 97.5 01/09/17 13:58 89 18 98 Room Air 01/09/17 13:48 Venturi Mask 01/09/17 13:45 82 16 97 Room Air 01/09/17 13:27 97.5 89 18 144/95 96 Room Air 01/09/17 12:00 98.2 83 18 176/72 97 Room Air 01/09/17 09:59 77 156/74 01/09/17 08:18 97.7 77 18 156/74 96 Room Air 01/09/17 07:59 78 20 96 Room Air 01/09/17 07:56 Room Air 01/09/17 07:50 78 18 93 Room Air 21 01/09/17 07:49 93 Room Air 01/09/17 06:30 99.0 01/09/17 03:49 99.0 89 15 151/73 92 Room Air 01/09/17 01:49 71 20 96 Room Air 01/09/17 01:48 70 20 94 Room Air 01/08/17 23:14 97.3 78 20 162/90 93 Room Air 01/08/17 19:40 78 20 97 Room Air 01/08/17 19:37 98.1 80 20 151/74 98 Room Air 01/08/17 19:30 Room Air 21 01/08/17 19:30 74 20 95 Room Air 01/08/17 19:30 95 Room Air 21 Intake and Output 01/08/17 01/09/17 19:00 07:00 Intake Total 840 ml Balance 840 ml Intake Oral 840 ml # Voids 3 2 # Bowel Movements 1 Laboratory Tests 01/09/17 06:20: White Blood Count 2.4L, Red Blood Count 3.94L, Hemoglobin 10.9L, Hematocrit 34.7L, Mean Corpuscular Volume 88, Mean Corpuscular Hemoglobin 27.7, Mean Corpuscular Hemoglobin Concent 31.4L, Red Cell Distribution Width 13.4, Platelet Count 163, Mean Platelet Volume 6.9, Neutrophils (%) (Auto) , Lymphocytes (%) (Auto) , Monocytes (%) (Auto) , Eosinophils (%) (Auto) , Basophils (%) (Auto) , Differential Total Cells Counted 100, Neutrophils % ( Manual) 44L, Lymphocytes % (Manual) 35, Monocytes % (Manual) 18H, Eosinophils % (Manual) 2, Basophils % (Manual) 1, Band Neutrophils 0, Platelet Estimate Adequate, Platelet Morphology Normal, Hypochromasia 1+, Anisocytosis 1+, Sodium Level 138, Potassium Level 4.6, Chloride Level 101, Carbon Dioxide Level 29, Anion Gap 8, Blood Urea Nitrogen 21, Creatinine 0.8, Estimat Glomerular Filtration Rate > 60, Glucose Level 220H, Calcium Level 8.8 Height (Feet): 5 Height (Inches): 6.00 Weight (Pounds): 325 General Appearance: alert, morbidly obese Neurologic: alert, oriented x 3, responsive, depressed affect Fabienne Zhang M.D. Jan 09, 2017 18:08
--- NOTE | 2017-01-09 18:52 | Pulmonology Progress Note ---
Assessment/Plan Problems: (1) Peripheral edema (2) Diabetes (3) Intractable pain Assessment/Plan no new complains improving check electrolytes continue current meds all notes, meds and labs reviewed pt/ot dc planning in progress Subjective ROS Limited/Unobtainable: No Interval Events: no new complains Allergies: Coded Allergies: ASPIRIN (Verified Allergy, Intermediate, 04/17/13) KETOROLAC (Verified Allergy, Intermediate, 04/17/13) PENICILLINS (Verified Allergy, Intermediate, 04/17/13) Objective Last 24 Hour Vital Signs Date Time Temp Pulse Resp B/P Pulse Ox O2 Delivery O2 Flow Rate FiO2 01/09/17 17:05 83 159/69 01/09/17 16:29 97.9 83 19 159/69 96 Room Air 01/09/17 15:40 97.5 01/09/17 15:40 97.5 01/09/17 13:58 89 18 98 Room Air 21 01/09/17 13:48 Venturi Mask 01/09/17 13:45 82 16 97 Room Air 01/09/17 13:27 97.5 89 18 144/95 96 Room Air 01/09/17 12:00 98.2 83 18 176/72 97 Room Air 01/09/17 09:59 77 156/74 01/09/17 08:18 97.7 77 18 156/74 96 Room Air 01/09/17 07:59 78 20 96 Room Air 01/09/17 07:56 Room Air 01/09/17 07:50 78 18 93 Room Air 21 01/09/17 07:49 93 Room Air 21 01/09/17 06:30 99.0 01/09/17 03:49 99.0 89 15 151/73 92 Room Air 01/09/17 01:49 71 20 96 Room Air 21 01/09/17 01:48 70 20 94 Room Air 21 01/08/17 23:14 97.3 78 20 162/90 93 Room Air 01/08/17 19:40 78 20 97 Room Air 21 01/08/17 19:37 98.1 80 20 151/74 98 Room Air 01/08/17 19:30 Room Air 21 01/08/17 19:30 74 20 95 Room Air 21 01/08/17 19:30 95 Room Air 21 Intake and Output 01/08/17 01/09/17 19:00 07:00 Intake Total 840 ml Balance 840 ml Intake Oral 840 ml # Voids 3 2 # Bowel Movements 1 General Appearance: WD/WN HEENT: normocephalic Respiratory/Chest: chest wall non-tender, lungs clear Breasts: no masses Cardiovascular: normal peripheral pulses Abdomen: normal bowel sounds, soft, non tender Genitourinary: normal external genitalia Extremities: no cyanosis Skin: no rash Neurologic/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 grossly normal, no motor/sensory deficits Laboratory Tests 01/09/17 06:20: White Blood Count 2.4L, Red Blood Count 3.94L, Hemoglobin 10.9L, Hematocrit 34.7L, Mean Corpuscular Volume 88, Mean Corpuscular Hemoglobin 27.7, Mean Corpuscular Hemoglobin Concent 31.4L, Red Cell Distribution Width 13.4, Platelet Count 163, Mean Platelet Volume 6.9, Neutrophils (%) (Auto) , Lymphocytes (%) (Auto) , Monocytes (%) (Auto) , Eosinophils (%) (Auto) , Basophils (%) (Auto) , Differential Total Cells Counted 100, Neutrophils % ( Manual) 44L, Lymphocytes % (Manual) 35, Monocytes % (Manual) 18H, Eosinophils % (Manual) 2, Basophils % (Manual) 1, Band Neutrophils 0, Platelet Estimate Adequate, Platelet Morphology Normal, Hypochromasia 1+, Anisocytosis 1+, Sodium Level 138, Potassium Level 4.6, Chloride Level 101, Carbon Dioxide Level 29, Anion Gap 8, Blood Urea Nitrogen 21, Creatinine 0.8, Estimat Glomerular Filtration Rate > 60, Glucose Level 220H, Calcium Level 8.8 Current Medications Medications (Trade) Dose Ordered Sig/Evelia Route PRN Reason Start Time Stop Time Status Last Admin Dose Admin Acetaminophen (Tylenol) 650 mg Q4H PRN ORAL Fever 01/05/17 23:45 02/04/17 23:44 01/06/17 15:38 Albuterol/ Ipratropium (DuoNeb 0.5-3(2.5)mg/3ml) 3 ml Q4H PRN HHN Shortness of Breath 01/05/17 23:45 01/10/17 23:44 Albuterol/ Ipratropium (DuoNeb 0.5-3(2.5)mg/3ml) 3 ml Q6HRT HHN 01/06/17 01:00 01/11/17 00:59 01/09/17 13:42 Amlodipine Besylate (Norvasc) 5 mg BID ORAL 01/06/17 09:00 02/05/17 08:59 01/09/17 17:05 Carisoprodol (Soma) 350 mg Q8HR ORAL 01/06/17 06:00 02/05/17 05:59 01/09/17 14:41 Clonidine HCl (Catapres) 0.1 mg Q6H PRN ORAL For High Blood Pressure 01/06/17 01:45 02/05/17 01:44 Dextrose (Dextrose 50%) STAT PRN IV Hypoglycemia 01/06/17 03:45 02/05/17 03:44 Diphenhydramine HCl (Benadryl) 50 mg Q6H PRN ORAL Itching 01/07/17 11:15 02/06/17 11:14 01/09/17 00:21 Duloxetine HCl (Cymbalta) 20 mg DAILY ORAL 01/06/17 09:00 02/05/17 08:59 01/08/17 09:12 Furosemide (Lasix) 40 mg EVERY 12 HOURS ORAL 01/09/17 21:00 02/08/17 20:59 Heparin Sodium (Porcine) (Heparin 5000 units/ml) 5,000 units EVERY 12 HOURS SUBQ 01/06/17 09:00 02/05/17 08:59 01/09/17 08:39 Hydromorphone HCl (Dilaudid) 1 mg Q4H PRN SUBQ Severe Pain (Pain Scale 7-10) 01/09/17 11:45 01/16/17 11:44 01/09/17 15:42 Insulin Aspart (NovoLOG) BEFORE MEALS AND HS SUBQ 01/06/17 06:30 02/05/17 06:29 01/09/17 16:56 Insulin Aspart (NovoLOG) 8 units NOVOTIAC SUBQ 01/06/17 06:30 02/05/17 06:29 01/09/17 16:55 Insulin Detemir (Levemir) 35 units BEDTIME SUBQ 01/06/17 21:00 02/05/17 20:59 01/07/17 20:42 Lisinopril (Zestril) 10 mg DAILY ORAL 01/06/17 09:00 02/05/17 08:59 01/08/17 09:12 Ondansetron HCl (Zofran) 4 mg Q6H PRN IVP Nausea & Vomiting 01/05/17 22:30 02/04/17 22:29 Oxycodone HCl (OxyCONTIN) 20 mg Q8H ORAL 01/06/17 04:30 01/13/17 04:29 01/09/17 13:15 Oxycodone HCl (Roxicodone) 10 mg Q6H PRN ORAL Moderate Breakthru Pain (5-7) 01/06/17 03:45 01/13/17 03:44 01/08/17 01:14 Pantoprazole (Protonix) 40 mg EVERY 12 HOURS ORAL 01/06/17 21:00 02/05/17 20:59 01/09/17 08:38 Polyethylene Glycol (Miralax) 17 gm DAILYPRN PRN ORAL Constipation 01/06/17 03:45 02/05/17 03:44 01/07/17 00:33 Promethazine HCl/ Codeine (Phenergan with Codeine) 5 ml Q4H PRN ORAL For Cough 01/06/17 01:45 02/05/17 01:44 Sucralfate (Carafate) 1 gm Q4H PRN ORAL Abdominal cramps 01/06/17 15:00 02/05/17 14:59 Temazepam (Restoril) 15 mg HSPRN PRN ORAL Insomnia 01/06/17 21:00 01/13/17 20:59 LLUVIA JENKINS Jan 09, 2017 18:52
[2017-01-09 20:00] VITALS: BP 163/93
[2017-01-09] MEDS: Furosemide 40mg tab ORAL SCH (20:39)
[2017-01-09] MEDS: Levemir Flexpen SUBQ SCH (20:43)
[2017-01-10 00:05] VITALS: BP 135/71
[2017-01-10] MEDS: DuoNeb 0.5-3(2.5)mg/3ml neb HHN SCH ×3 (01:31→13:00)
[2017-01-10 04:23] VITALS: BP 127/59
[2017-01-10] MEDS: oxyCONTIN 20mg tab ORAL SCH ×2 (04:57→12:40)
[2017-01-10] MEDS: HYDROmorphone 1mg/ml Carpuject SUBQ PRN ×2 (05:58→10:13)
[2017-01-10] MEDS: NovoLOG Insulin Flexpen SUBQ SCH ×4 (06:00→11:44)
--- NOTE | 2017-01-10 06:37 | General Progress Note ---
Assessment/Plan Problem List: (1) Diabetes ICD Codes: E11.9 - Type 2 diabetes mellitus without complications SNOMED: 75607073 (2) Intractable pain ICD Codes: G89.29 - Other chronic pain SNOMED: 318541425 (3) Osteopenia (4) HTN (hypertension) ICD Codes: I10 - Essential (primary) hypertension SNOMED: 16208497 (5) Osteoarthritis Assessment/Plan continue Levemir to 35 units qhs continue Novolog 8 units ac tid + SSI Subjective Allergies: Coded Allergies: ASPIRIN (Verified Allergy, Intermediate, 04/17/13) KETOROLAC (Verified Allergy, Intermediate, 04/17/13) PENICILLINS (Verified Allergy, Intermediate, 04/17/13) All Systems: reviewed and negative except above Subjective events noted Objective Last 24 Hour Vital Signs Date Time Temp Pulse Resp B/P Pulse Ox O2 Delivery O2 Flow Rate FiO2 01/10/17 06:28 98.5 01/10/17 05:56 98.5 01/10/17 04:23 98.5 79 20 127/59 97 Room Air 01/10/17 01:44 76 19 98 Room Air 21 01/10/17 01:33 75 19 95 Room Air 21 01/10/17 00:05 98.2 79 19 135/71 97 Room Air 01/09/17 20:00 98.1 84 21 163/93 97 Room Air 01/09/17 19:18 Room Air 01/09/17 19:17 Room Air 01/09/17 17:05 83 159/69 01/09/17 16:29 97.9 83 19 159/69 96 Room Air 01/09/17 13:58 89 18 98 Room Air 21 01/09/17 13:48 Venturi Mask 01/09/17 13:45 82 16 97 Room Air 01/09/17 13:27 97.5 89 18 144/95 96 Room Air 01/09/17 12:00 98.2 83 18 176/72 97 Room Air 01/09/17 09:59 77 156/74 01/09/17 08:18 97.7 77 18 156/74 96 Room Air 01/09/17 07:59 78 20 96 Room Air 01/09/17 07:56 Room Air 01/09/17 07:50 78 18 93 Room Air 21 01/09/17 07:49 93 Room Air 21 Intake and Output 01/09/17 01/10/17 19:00 07:00 Intake Total 360 ml Balance 360 ml Intake Oral 360 ml # Voids 2 Height (Feet): 5 Height (Inches): 6.00 Weight (Pounds): 325 General Appearance: no apparent distress EENT: normal ENT inspection Neck: normal alignment Cardiovascular: normal rate Respiratory/Chest: chest wall non-tender Abdomen: normal bowel sounds Pelvis: normal external exam Edema: no edema noted Arm (L), no edema noted Arm (R), no edema noted Leg (L), no edema noted Leg (R), no edema noted Pedal (L), no edema noted Pedal (R), no edema noted Generalized Objective Current Medications Medications (Trade) Dose Ordered Sig/Evelia Route PRN Reason Start Time Stop Time Status Last Admin Dose Admin Acetaminophen (Tylenol) 650 mg Q4H PRN ORAL Fever 01/05/17 23:45 02/04/17 23:44 01/06/17 15:38 Albuterol/ Ipratropium (DuoNeb 0.5-3(2.5)mg/3ml) 3 ml Q4H PRN HHN Shortness of Breath 01/05/17 23:45 01/10/17 23:44 Albuterol/ Ipratropium (DuoNeb 0.5-3(2.5)mg/3ml) 3 ml Q6HRT HHN 01/06/17 01:00 01/11/17 00:59 01/10/17 01:31 Amlodipine Besylate (Norvasc) 5 mg BID ORAL 01/06/17 09:00 02/05/17 08:59 01/09/17 17:05 Carisoprodol (Soma) 350 mg Q8HR ORAL 01/06/17 06:00 02/05/17 05:59 01/10/17 04:57 Clonidine HCl (Catapres) 0.1 mg Q6H PRN ORAL For High Blood Pressure 01/06/17 01:45 02/05/17 01:44 Dextrose (Dextrose 50%) STAT PRN IV Hypoglycemia 01/06/17 03:45 02/05/17 03:44 Diphenhydramine HCl (Benadryl) 50 mg Q6H PRN ORAL Itching 01/07/17 11:15 02/06/17 11:14 01/10/17 05:58 Duloxetine HCl (Cymbalta) 20 mg DAILY ORAL 01/06/17 09:00 02/05/17 08:59 01/08/17 09:12 Furosemide (Lasix) 40 mg EVERY 12 HOURS ORAL 01/09/17 21:00 02/08/17 20:59 01/09/17 20:39 Heparin Sodium (Porcine) (Heparin 5000 units/ml) 5,000 units EVERY 12 HOURS SUBQ 01/06/17 09:00 02/05/17 08:59 01/09/17 20:41 Hydromorphone HCl (Dilaudid) 1 mg Q4H PRN SUBQ Severe Pain (Pain Scale 7-10) 01/09/17 11:45 01/16/17 11:44 01/10/17 05:58 Insulin Aspart (NovoLOG) BEFORE MEALS AND HS SUBQ 01/06/17 06:30 02/05/17 06:29 01/10/17 06:00 Insulin Aspart (NovoLOG) 8 units NOVOTIAC SUBQ 01/06/17 06:30 02/05/17 06:29 01/10/17 06:00 Insulin Detemir (Levemir) 35 units BEDTIME SUBQ 01/06/17 21:00 02/05/17 20:59 01/09/17 20:43 Lisinopril (Zestril) 10 mg DAILY ORAL 01/06/17 09:00 02/05/17 08:59 01/08/17 09:12 Ondansetron HCl (Zofran) 4 mg Q6H PRN IVP Nausea & Vomiting 01/05/17 22:30 02/04/17 22:29 Oxycodone HCl (OxyCONTIN) 20 mg Q8H ORAL 01/06/17 04:30 01/13/17 04:29 01/10/17 04:57 Oxycodone HCl (Roxicodone) 10 mg Q6H PRN ORAL Moderate Breakthru Pain (5-7) 01/06/17 03:45 01/13/17 03:44 01/08/17 01:14 Pantoprazole (Protonix) 40 mg EVERY 12 HOURS ORAL 01/06/17 21:00 02/05/17 20:59 01/09/17 20:39 Polyethylene Glycol (Miralax) 17 gm DAILYPRN PRN ORAL Constipation 01/06/17 03:45 02/05/17 03:44 01/07/17 00:33 Promethazine HCl/ Codeine (Phenergan with Codeine) 5 ml Q4H PRN ORAL For Cough 01/06/17 01:45 02/05/17 01:44 Sucralfate (Carafate) 1 gm Q4H PRN ORAL Abdominal cramps 01/06/17 15:00 02/05/17 14:59 Temazepam (Restoril) 15 mg HSPRN PRN ORAL Insomnia 01/06/17 21:00 01/13/17 20:59 Item Value Date Time Bedside Blood Glucose 135 mg/dl H 01/10/17 0630 Bedside Blood Glucose 259 mg/dl H 01/09/17 2100 Bedside Blood Glucose 221 mg/dl H 01/09/17 1656 Bedside Blood Glucose 217 mg/dl H 01/09/17 1143 Bedside Blood Glucose 196 mg/dl H 01/09/17 0630 SUMA ZARCO Jan 10, 2017 06:37
[2017-01-10 07:01] LABS: MEAN CORPUSCULAR HEMOGLOBIN 27.2 PG (27.0-31.0); MEAN CORPUSCULAR HGB CONC 30.8 G/DL (32.0-36.0); MEAN CORPUSCULAR VOLUME 88 FL (80-99); MEAN PLATELET VOLUME 7.6 FL (6.5-10.1); PLATELET COUNT 200 K/UL (150-450); RED BLOOD COUNT 4.19 M/UL (4.20-5.40); RED CELL DISTRIBUTION WIDTH 13.5 % (11.6-14.8); WHITE BLOOD COUNT 3.1 K/UL (4.8-10.8)
[2017-01-10 07:27] LABS: ANION GAP 6 (5-15); CALCIUM 9.3 mg/dL (8.6-10.2); CARBON DIOXIDE 32 mEQ/L (20-30); CHLORIDE 103 mEQ/L (98-107); CREATININE 0.9 mg/dL (0.5-0.9); GLOMERULAR FILTRATION RATE > 60 mL/min (>60); HEMOLYSIS 2; POTASSIUM 4.7 mEQ/L (3.4-4.9); SODIUM 141 mEQ/L (135-145)
[2017-01-10 08:18] VITALS: BP 128/74
[2017-01-10 08:47] LABS: BAND NEUTROPHILS % (MANUAL) 0 % (0-8); BASOPHILS % (MANUAL) 0 % (0-2); EOSINOPHILS % (MANUAL) 2 % (0-3); HYPOCHROMASIA 1+; LYMPHOCYTES % (MANUAL) 44 % (20-45); NEUTROPHILS % (MANUAL) 47 % (45-75); PLATELET ESTIMATE ADEQUATE; PLATELET MORPHOLOGY NORMAL; TOTAL CELLS COUNTED 100
[2017-01-10] MEDS: Lisinopril 10mg tab ORAL SCH (09:00)
--- NOTE | 2017-01-10 09:06 | General Progress Note ---
Assessment/Plan Assessment/Plan (1) H/o Lumbar surgery (2) Lumbar Radiculopathy (3) Lumbar Spondylosis (4) Lumbar DDD (5) Morbid Obesity (6) Cervical Radiculopathy (7) Cervical Spondylosis (8) Cervical DDD (9) H/o Cervical fusion The patient will be continued on OxyContin, oxycodone and Dilaudid. Rx for Oxycontin 20mg 90 tabs and Percocet 10/325mg 90 tabs was written for the patient in anticipation for discharge. The patient was discussed with Dr. Serrano and Dr. Serrano concurred. Subjective Date patient seen: Jan 10, 2017 Time patient seen: 06:45 - am Allergies: Coded Allergies: ASPIRIN (Verified Allergy, Intermediate, 04/17/13) KETOROLAC (Verified Allergy, Intermediate, 04/17/13) PENICILLINS (Verified Allergy, Intermediate, 04/17/13) Subjective REVIEW OF SYSTEMS: Denies rash, fever, chills, sweating, dizziness, drowsiness, blurred vision, sore throat, and change in weight. No nausea, vomiting, diarrhea or blood in the stool or urine. No bowel or bladder incontinence. Denies shortness of breath, swelling in the lower extremities, neck and low back pain. SUBJECTIVE: She reports that the pain has been well controlled on the medications and will being discharged later to day and needs a RX for discharge. Objective Last 24 Hour Vital Signs Date Time Temp Pulse Resp B/P Pulse Ox O2 Delivery O2 Flow Rate FiO2 01/10/17 08:18 98.0 78 20 128/74 99 Nasal Cannula 2.0 01/10/17 07:27 86 18 98 Room Air 01/10/17 07:25 85 20 94 Nasal Cannula 2.0 30 01/10/17 06:28 98.5 01/10/17 05:56 98.5 01/10/17 04:23 98.5 79 20 127/59 97 Room Air 01/10/17 01:44 76 19 98 Room Air 21 01/10/17 01:33 75 19 95 Room Air 21 01/10/17 00:05 98.2 79 19 135/71 97 Room Air 01/09/17 20:00 98.1 84 21 163/93 97 Room Air 01/09/17 19:18 Room Air 01/09/17 19:17 Room Air 01/09/17 17:05 83 159/69 01/09/17 16:29 97.9 83 19 159/69 96 Room Air 01/09/17 13:58 89 18 98 Room Air 21 01/09/17 13:48 Venturi Mask 01/09/17 13:45 82 16 97 Room Air 01/09/17 13:27 97.5 89 18 144/95 96 Room Air 01/09/17 12:00 98.2 83 18 176/72 97 Room Air 01/09/17 09:59 77 156/74 Intake and Output 01/09/17 01/10/17 19:00 07:00 Intake Total 360 ml 400 ml Balance 360 ml 400 ml Intake Oral 360 ml 400 ml # Voids 2 2 Laboratory Tests 01/10/17 06:30: White Blood Count 3.1L, Red Blood Count 4.19L, Hemoglobin 11.4L, Hematocrit 37.0 , Mean Corpuscular Volume 88, Mean Corpuscular Hemoglobin 27.2, Mean Corpuscular Hemoglobin Concent 30.8L, Red Cell Distribution Width 13.5, Platelet Count 200, Mean Platelet Volume 7.6, Neutrophils (%) (Auto) , Lymphocytes (%) (Auto) , Monocytes (%) (Auto) , Eosinophils (%) (Auto) , Basophils (%) (Auto) , Differential Total Cells Counted 100, Neutrophils % ( Manual) 47, Lymphocytes % (Manual) 44, Monocytes % (Manual) 7, Eosinophils % ( Manual) 2, Basophils % (Manual) 0, Band Neutrophils 0, Platelet Estimate Adequate, Platelet Morphology Normal, Hypochromasia 1+, Sodium Level 141, Potassium Level 4.7, Chloride Level 103, Carbon Dioxide Level 32H, Anion Gap 6, Blood Urea Nitrogen 21, Creatinine 0.9, Estimat Glomerular Filtration Rate > 60 , Glucose Level 165H, Calcium Level 9.3 Height (Feet): 5 Height (Inches): 6.00 Weight (Pounds): 325 Objective GENERAL: Alert, awake, and oriented x3. HEENT: PERRLA. NECK: Range of motion is decreased due to patients pain and condition tenderness in the paracervical muscles. No adenopathy. LUNGS: Decreased breath sounds bilaterally. HEART: S1, S2 regular. ABDOMEN: Obese. BACK: Range of motion is decreased in flexion and extension with tenderness in the paraspinal muscles. No tenderness to trapezius and rhomboid muscles. EXTREMITIES: No cyanosis. No clubbing with severe edema noted in bilateral lower extremities. NEURO: No changes. VERÓNICA VINCENT. Jan 10, 2017 09:06
[2017-01-10] MEDS: Furosemide 40mg tab ORAL SCH (09:09)
[2017-01-10] MEDS: Heparin 5000 units/ml inj SUBQ SCH (09:11)
[2017-01-10] MEDS: oxyCODONE 5mg IR tab ORAL PRN (09:20)
[2017-01-10] MEDS ORDERED: RESTORIL15 MG ORAL (10:37)
[2017-01-10] MEDS ORDERED: CATAPRES0.1 MG ORAL (10:37)
[2017-01-10] MEDS ORDERED: BENADRYL25 MG ORAL (10:37)
[2017-01-10] MEDS ORDERED: PROTONIX40 MG ORAL (10:38)
[2017-01-10] MEDS ORDERED: CARAFATE1 G1 ORAL (10:38)
[2017-01-10] MEDS ORDERED: MIRALAX17 G2 ORAL (10:38)
[2017-01-10] MEDS ORDERED: OXYCONTIN20 MG ORAL (10:39)
[2017-01-10] MEDS ORDERED: PERCOCET 10-321 EACH ORAL (10:40)
[2017-01-10] MEDS ORDERED: DILAUDID 00.5 MG/0.5 SQ (10:41)
[2017-01-10] MEDS ORDERED: LEVEMIR100 UNIT/1 SUBQ (10:41)
[2017-01-10] MEDS ORDERED: NOVOLOG100 UNIT/4 SQ (10:42)
[2017-01-10 11:13] VITALS: BP 141/68
--- NOTE | 2017-01-10 15:12 | General Progress Note ---
Assessment/Plan Problem List: (1) HTN (hypertension) ICD Codes: I10 - Essential (primary) hypertension SNOMED: 77371266 (2) Osteoarthritis (3) Acute exacerbation of congestive heart failure ICD Codes: I50.9 - Heart failure, unspecified SNOMED: 94802292 (4) Diabetes ICD Codes: E11.9 - Type 2 diabetes mellitus without complications SNOMED: 24590641 (5) Intractable pain ICD Codes: G89.29 - Other chronic pain SNOMED: 769913368 (6) Peripheral edema ICD Codes: R60.9 - Edema, unspecified SNOMED: 573871245 (7) Leukopenia ICD Codes: D72.819 - Decreased whiteblood cell count, unspecified SNOMED: 77901148 Status: stable, progressing, tolerating diet Assessment/Plan ot pt diet o2 pulm tx dc to snf if clear by cardio pulm Subjective Constitutional: Reports: weakness Allergies: Coded Allergies: ASPIRIN (Verified Allergy, Intermediate, 04/17/13) KETOROLAC (Verified Allergy, Intermediate, 04/17/13) PENICILLINS (Verified Allergy, Intermediate, 04/17/13) All Systems: reviewed and negative except above Subjective sl agitated Objective Last 24 Hour Vital Signs Date Time Temp Pulse Resp B/P Pulse Ox O2 Delivery O2 Flow Rate FiO2 01/10/17 13:31 80 16 100 Room Air 01/10/17 13:20 82 18 99 Room Air 01/10/17 11:13 97.7 71 20 141/68 99 Nasal Cannula 2.0 01/10/17 10:43 98.0 01/10/17 09:09 78 128/74 01/10/17 08:18 98.0 78 20 128/74 99 Nasal Cannula 2.0 01/10/17 07:27 86 18 98 Room Air 01/10/17 07:25 85 20 94 Nasal Cannula 2.0 30 01/10/17 05:56 98.5 01/10/17 04:23 98.5 79 20 127/59 97 Room Air 01/10/17 01:44 76 19 98 Room Air 01/10/17 01:33 75 19 95 Room Air 01/10/17 00:05 98.2 79 19 135/71 97 Room Air 01/09/17 20:00 98.1 84 21 163/93 97 Room Air 01/09/17 19:18 Room Air 01/09/17 19:17 Room Air 01/09/17 17:05 83 159/69 01/09/17 16:29 97.9 83 19 159/69 96 Room Air Intake and Output 01/09/17 01/10/17 19:00 07:00 Intake Total 360 ml 400 ml Balance 360 ml 400 ml Intake Oral 360 ml 400 ml # Voids 2 2 Laboratory Tests 01/10/17 06:30: White Blood Count 3.1L, Red Blood Count 4.19L, Hemoglobin 11.4L, Hematocrit 37.0 , Mean Corpuscular Volume 88, Mean Corpuscular Hemoglobin 27.2, Mean Corpuscular Hemoglobin Concent 30.8L, Red Cell Distribution Width 13.5, Platelet Count 200, Mean Platelet Volume 7.6, Neutrophils (%) (Auto) , Lymphocytes (%) (Auto) , Monocytes (%) (Auto) , Eosinophils (%) (Auto) , Basophils (%) (Auto) , Differential Total Cells Counted 100, Neutrophils % ( Manual) 47, Lymphocytes % (Manual) 44, Monocytes % (Manual) 7, Eosinophils % ( Manual) 2, Basophils % (Manual) 0, Band Neutrophils 0, Platelet Estimate Adequate, Platelet Morphology Normal, Hypochromasia 1+, Sodium Level 141, Potassium Level 4.7, Chloride Level 103, Carbon Dioxide Level 32H, Anion Gap 6, Blood Urea Nitrogen 21, Creatinine 0.9, Estimat Glomerular Filtration Rate > 60 , Glucose Level 165H, Calcium Level 9.3 Height (Feet): 5 Height (Inches): 6.00 Weight (Pounds): 325 General Appearance: alert EENT: normal ENT inspection Neck: normal alignment Cardiovascular: normal peripheral pulses, normal rate, regular rhythm Respiratory/Chest: chest wall non-tender, lungs clear, normal breath sounds Abdomen: normal bowel sounds, non tender, soft Extremities: normal inspection Edema: 1+ Arm (L), 1+ Arm (R), 1+ Leg (L), 1+ Leg (R), 1+ Pedal (L), 1+ Pedal ( R), 1+ Generalized Neurologic: responsive, motor weakness Skin: normal pigmentation, warm/dry GISELLA MARCANO Jan 10, 2017 15:12
--- NOTE | 2017-01-10 17:58 | Pulmonology Progress Note ---
Assessment/Plan Problems: (1) Peripheral edema (2) Diabetes (3) Intractable pain Assessment/Plan no new complains improving check electrolytes continue current meds all notes, meds and labs reviewed pt/ot ok to dc Subjective ROS Limited/Unobtainable: No Allergies: Coded Allergies: ASPIRIN (Verified Allergy, Intermediate, 04/17/13) KETOROLAC (Verified Allergy, Intermediate, 04/17/13) PENICILLINS (Verified Allergy, Intermediate, 04/17/13) Objective Last 24 Hour Vital Signs Date Time Temp Pulse Resp B/P Pulse Ox O2 Delivery O2 Flow Rate FiO2 01/10/17 16:01 97.7 01/10/17 13:31 80 16 100 Room Air 21 01/10/17 13:20 82 18 99 Room Air 21 01/10/17 11:13 97.7 71 20 141/68 99 Nasal Cannula 2.0 01/10/17 10:43 98.0 01/10/17 09:09 78 128/74 01/10/17 08:18 98.0 78 20 128/74 99 Nasal Cannula 2.0 01/10/17 07:27 86 18 98 Room Air 01/10/17 07:25 85 20 94 Nasal Cannula 2.0 30 01/10/17 04:23 98.5 79 20 127/59 97 Room Air 01/10/17 01:44 76 19 98 Room Air 21 01/10/17 01:33 75 19 95 Room Air 21 01/10/17 00:05 98.2 79 19 135/71 97 Room Air 01/09/17 20:00 98.1 84 21 163/93 97 Room Air 01/09/17 19:18 Room Air 01/09/17 19:17 Room Air Intake and Output 01/09/17 01/10/17 19:00 07:00 Intake Total 360 ml 400 ml Balance 360 ml 400 ml Intake Oral 360 ml 400 ml # Voids 2 2 General Appearance: WD/WN HEENT: normocephalic, atraumatic Respiratory/Chest: chest wall non-tender, lungs clear Breasts: no masses Cardiovascular: normal peripheral pulses Abdomen: normal bowel sounds, soft, non tender Genitourinary: normal external genitalia Extremities: no clubbing Neurologic/Psychiatric: ship scaler II-XII grossly normal Laboratory Tests 01/10/17 06:30: White Blood Count 3.1L, Red Blood Count 4.19L, Hemoglobin 11.4L, Hematocrit 37.0 , Mean Corpuscular Volume 88, Mean Corpuscular Hemoglobin 27.2, Mean Corpuscular Hemoglobin Concent 30.8L, Red Cell Distribution Width 13.5, Platelet Count 200, Mean Platelet Volume 7.6, Neutrophils (%) (Auto) , Lymphocytes (%) (Auto) , Monocytes (%) (Auto) , Eosinophils (%) (Auto) , Basophils (%) (Auto) , Differential Total Cells Counted 100, Neutrophils % ( Manual) 47, Lymphocytes % (Manual) 44, Monocytes % (Manual) 7, Eosinophils % ( Manual) 2, Basophils % (Manual) 0, Band Neutrophils 0, Platelet Estimate Adequate, Platelet Morphology Normal, Hypochromasia 1+, Sodium Level 141, Potassium Level 4.7, Chloride Level 103, Carbon Dioxide Level 32H, Anion Gap 6, Blood Urea Nitrogen 21, Creatinine 0.9, Estimat Glomerular Filtration Rate > 60 , Glucose Level 165H, Calcium Level 9.3 LLUVIA JENKINS Jan 10, 2017 17:58
--- NOTE | 2017-01-10 19:26 | General Progress Note ---
Assessment/Plan Assessment/Plan 1. Leukopenia secondary to underlying infection. Congenital neutropenia. --> anc remains >1000 --> viral studies are negative --> us of the abdomen still pending results, she refused today 2. Anemia due to chronic disease, is normocytic. 3. Monocytosis, has resolved. 4. Elevation of D-dimer, likely secondary to reactive process. 5. Alkaline phosphatase elevated. 6. Malnutrition, low albumin. 7. Cardiomegaly noted. 8. Discussed with staff. Subjective Constitutional: Denies: chills, diaphoresis, fever, malaise, no symptoms, other , weakness HEENT: Denies: blurred vision, double vision, ear discharge, ear pain, eye pain , mouth pain, mouth swelling, no symptoms, nose congestion, nose pain, other, tearing, throat pain, throat swelling Cardiovascular: Denies: chest pain, edema, irregular heart rate, lightheadedness, no symptoms, other, palpitations, syncope Respiratory: Denies: SOB at rest, SOB with excertion, cough, no symptoms, orthopnea, other, shortness of breath, sputum, stridor, wheezing Gastrointestinal/Abdominal: Denies: abdomen distended, abdominal pain, black stools, blood in stool, constipated, diarrhea, difficulty swallowing, nausea, no symptoms, other, poor appetite, poor fluid intake, rectal bleeding, tarry stools, vomiting Genitourinary: Denies: burning, discharge, flank pain, frequency, hematuria, incontinence, no symptoms, other, pain, urgency Neurologic/Psychiatric: Denies: anxiety, depressed, emotional problems, headache, no symptoms, numbness, other, paresthesia, pre-existing deficit, seizure, tingling, tremors, weakness Endocrine: Denies: excessive sweating, flushing, increased hunger, increased thirst, increased urine, intolerance to cold, intolerance to heat, no symptoms, other, unexplained weight gain, unexplained weight loss Allergies: Coded Allergies: ASPIRIN (Verified Allergy, Intermediate, 04/17/13) KETOROLAC (Verified Allergy, Intermediate, 04/17/13) PENICILLINS (Verified Allergy, Intermediate, 04/17/13) Subjective stable for d/c per heme Objective Last 24 Hour Vital Signs Date Time Temp Pulse Resp B/P Pulse Ox O2 Delivery O2 Flow Rate FiO2 01/10/17 16:01 97.7 01/10/17 13:31 80 16 100 Room Air 21 01/10/17 13:20 82 18 99 Room Air 21 01/10/17 11:13 97.7 71 20 141/68 99 Nasal Cannula 2.0 01/10/17 10:43 98.0 01/10/17 09:09 78 128/74 01/10/17 08:18 98.0 78 20 128/74 99 Nasal Cannula 2.0 01/10/17 07:27 86 18 98 Room Air 01/10/17 07:25 85 20 94 Nasal Cannula 2.0 30 01/10/17 04:23 98.5 79 20 127/59 97 Room Air 01/10/17 01:44 76 19 98 Room Air 21 01/10/17 01:33 75 19 95 Room Air 21 01/10/17 00:05 98.2 79 19 135/71 97 Room Air 01/09/17 20:00 98.1 84 21 163/93 97 Room Air Intake and Output 01/09/17 01/10/17 19:00 07:00 Intake Total 360 ml 400 ml Balance 360 ml 400 ml Intake Oral 360 ml 400 ml # Voids 2 2 Laboratory Tests 01/10/17 06:30: White Blood Count 3.1L, Red Blood Count 4.19L, Hemoglobin 11.4L, Hematocrit 37.0 , Mean Corpuscular Volume 88, Mean Corpuscular Hemoglobin 27.2, Mean Corpuscular Hemoglobin Concent 30.8L, Red Cell Distribution Width 13.5, Platelet Count 200, Mean Platelet Volume 7.6, Neutrophils (%) (Auto) , Lymphocytes (%) (Auto) , Monocytes (%) (Auto) , Eosinophils (%) (Auto) , Basophils (%) (Auto) , Differential Total Cells Counted 100, Neutrophils % ( Manual) 47, Lymphocytes % (Manual) 44, Monocytes % (Manual) 7, Eosinophils % ( Manual) 2, Basophils % (Manual) 0, Band Neutrophils 0, Platelet Estimate Adequate, Platelet Morphology Normal, Hypochromasia 1+, Sodium Level 141, Potassium Level 4.7, Chloride Level 103, Carbon Dioxide Level 32H, Anion Gap 6, Blood Urea Nitrogen 21, Creatinine 0.9, Estimat Glomerular Filtration Rate > 60 , Glucose Level 165H, Calcium Level 9.3 Height (Feet): 5 Height (Inches): 6.00 Weight (Pounds): 325 General Appearance: no apparent distress EENT: TMs normal Neck: supple Cardiovascular: regular rhythm Respiratory/Chest: normal breath sounds Extremities: non-tender Edema: 1+ Leg (L), 1+ Leg (R) Edema: mild edema Neurologic: no motor/sensory deficits Ryan Bryant Jan 10, 2017 19:26
--- NOTE | 2017-01-10 23:10 | General Progress Note ---
Assessment/Plan Status: doing well, stable Assessment/Plan opioid dependence, mdd the pt reluctant to take psych meds Subjective Constitutional: Reports: malaise, weakness Cardiovascular: Reports: chest pain Neurologic/Psychiatric: Reports: anxiety, depressed, emotional problems Allergies: Coded Allergies: ASPIRIN (Verified Allergy, Intermediate, 04/17/13) KETOROLAC (Verified Allergy, Intermediate, 04/17/13) PENICILLINS (Verified Allergy, Intermediate, 04/17/13) Subjective the pt c/o chest pain. the pt had multiple complaints. Objective Last 24 Hour Vital Signs Date Time Temp Pulse Resp B/P Pulse Ox O2 Delivery O2 Flow Rate FiO2 01/10/17 16:01 97.7 01/10/17 13:31 80 16 100 Room Air 21 01/10/17 13:20 82 18 99 Room Air 21 01/10/17 11:13 97.7 71 20 141/68 99 Nasal Cannula 2.0 01/10/17 10:43 98.0 01/10/17 09:09 78 128/74 01/10/17 08:18 98.0 78 20 128/74 99 Nasal Cannula 2.0 01/10/17 07:27 86 18 98 Room Air 01/10/17 07:25 85 20 94 Nasal Cannula 2.0 30 01/10/17 04:23 98.5 79 20 127/59 97 Room Air 01/10/17 01:44 76 19 98 Room Air 21 01/10/17 01:33 75 19 95 Room Air 01/10/17 00:05 98.2 79 19 135/71 97 Room Air Intake and Output 01/09/17 01/10/17 19:00 07:00 Intake Total 360 ml 400 ml Balance 360 ml 400 ml Intake Oral 360 ml 400 ml # Voids 2 2 Laboratory Tests 01/10/17 06:30: White Blood Count 3.1L, Red Blood Count 4.19L, Hemoglobin 11.4L, Hematocrit 37.0 , Mean Corpuscular Volume 88, Mean Corpuscular Hemoglobin 27.2, Mean Corpuscular Hemoglobin Concent 30.8L, Red Cell Distribution Width 13.5, Platelet Count 200, Mean Platelet Volume 7.6, Neutrophils (%) (Auto) , Lymphocytes (%) (Auto) , Monocytes (%) (Auto) , Eosinophils (%) (Auto) , Basophils (%) (Auto) , Differential Total Cells Counted 100, Neutrophils % ( Manual) 47, Lymphocytes % (Manual) 44, Monocytes % (Manual) 7, Eosinophils % ( Manual) 2, Basophils % (Manual) 0, Band Neutrophils 0, Platelet Estimate Adequate, Platelet Morphology Normal, Hypochromasia 1+, Sodium Level 141, Potassium Level 4.7, Chloride Level 103, Carbon Dioxide Level 32H, Anion Gap 6, Blood Urea Nitrogen 21, Creatinine 0.9, Estimat Glomerular Filtration Rate > 60 , Glucose Level 165H, Calcium Level 9.3 Height (Feet): 5 Height (Inches): 6.00 Weight (Pounds): 325 General Appearance: alert, agitated, morbidly obese Neurologic: alert, oriented x 3, responsive, depressed affect Fabienne Zhang M.D. Jan 10, 2017 23:10
--- NOTE | 2017-01-11 15:02 | Discharge Summary ---
Discharge Summary Hospital Course Date of Admission Jan 02, 2017 at 19:18 Date of Discharge Jan 10, 2017 at 16:31 Admitting Diagnosis swelling lower extrimities HPI Yady Mir is a 56 year old female who was admitted on Jan 02, 2017 at 19: 18 for Swelling Lower Extremities Hospital Course [id number] Discharge Discharge Disposition Patient was discharged to Recuperative care Discharge Diagnoses: Wendy Kam NP Jan 11, 2017 15:02
--- NOTE | 2017-01-12 13:00 | Discharge Summary 2 SIG ---
DATE OF ADMISSION: 01/02/2017 DATE OF DISCHARGE: 01/10/2017 CONSULTANTS: 1. Fabienne Zhang M.D. 2. Ryan Bryant M.D. 3. Adelfo Torres M.D. 4. Julio César Craven M.D. 5. Kobe Serrano. BRIEF HOSPITAL COURSE: The patient is a 56-year-old female from [facility], who presented with lower extremity swelling and agitation. On evaluation at ED, laboratories showed elevation of BNP to 1203. Chest x-ray showed cardiomegaly without evident pulmonary edema. She had lower extremity ultrasound. There was no definite DVT, however, limited study as several portions were unable to be visualized due to the patient's body habitus. She was started on IV diuretics and due to nondiagnostic study was admitted for further evaluation and treatment. She was admitted to the medical floor for lower extremity swelling, agitation, congestive heart failure, obesity, pulmonary hypertension, anemia, diabetes, and leukopenia. She was given pain management and was given IV Lasix every 8 hours. Blood sugars were monitored and was given Levemir and NovoLog. Leukopenia was assessed to be secondary to underlying infection. Hepatitis was negative. HIV was negative. She underwent psychiatric evaluation. The patient is med seeking and asking for Ativan and reluctant to take anything else besides Ativan. She was not assessed to be suicidal or homicidal and was diagnosed to have a pain medication dependence or opioid dependence with major depressive disorder. Insulin, she was given Levemir 35 units at bedtime with NovoLog 8 units before meals on sliding scale. She had elevation of D-dimer, which is likely secondary to reactive process. She was continued on pain medications, OxyContin, oxycodone, and Dilaudid. She was eventually discharged to recuperative care. FINAL DIAGNOSES: 1. Acute exacerbation of congestive heart failure. 2. Osteoarthritis. 3. Hypertension. 4. Diabetes. 5. Intractable pain. 6. Leukopenia secondary to underlying infection. 7. Major depressive disorder. 8. Opioid dependence. 9. Anemia due to chronic disease. 10. Elevation of D-dimer likely secondary to reactive process. 11. Low albumin probably secondary to malnutrition. 12. Osteopenia. 13. Osteoarthritis. Alfred Parr D.O. I have been assigned to dictate discharge summary on this account and I was not involved in the patient's management. Wendy Kam N.P. DR: RICHARD JOB#: [id number] CC:
== END 2017-01-10 16:31 | disposition home health service (06) | DRG 292 ==
LOC: EDBD 13:58 → EMR 16:15 → 4W 19:18 → EDBEDREQ 20:01 → 2W 01-05 02:30 → 4W 01-05 22:13
DX: I50.9 Heart failure, unspecified (principal); E46 Unspecified protein-calorie malnutrition; I27.2 Other secondary pulmonary hypertension; Z68.43 Body mass index [BMI] 50.0-59.9, adult; D70.9 Neutropenia, unspecified; E66.01 Morbid (severe) obesity due to excess calories; F11.20 Opioid dependence, uncomplicated; R45.1 Restlessness and agitation; E11.9 Type 2 diabetes mellitus without complications; Z88.6 Allergy status to analgesic agent; Z88.0 Allergy status to penicillin; Z88.8 Allergy status to other drugs, medicaments and biological substances; M19.90 Unspecified osteoarthritis, unspecified site; F32.9 Major depressive disorder, single episode, unspecified; D63.8 Anemia in other chronic diseases classified elsewhere; M51.16 Intervertebral disc disorders with radiculopathy, lumbar region; M47.896 Other spondylosis, lumbar region; Z98.1 Arthrodesis status; Z79.4 Long term (current) use of insulin; I10 Essential (primary) hypertension; F17.200 Nicotine dependence, unspecified, uncomplicated; F41.9 Anxiety disorder, unspecified; G89.29 Other chronic pain
CPT/HCPCS: 36415; 36600; 71010; 80048; 80053; 80069; 82550; 82553; 82607; 82728; 82803; 82962; 83540; 83550; 83615; 83880; 84484; 85007; 85025; 85044; 85060; 85379; 85610; 85730; 86703; 86705; 86709; 86803; 87070; 87081; 87205; 87340; 93005; 93306; 93970; 94640; 94664; 94760; 97803; J1815; J2405; J7620; S5561